=== PATIENT | female | born 1945 | race Caucasian/White ===

== ENCOUNTER → 2024-02-17 08:55 | Outpatient (REF) | payer MEDICARE, SELFPAY | LOC: DHCBC MAIN 08:55 | PROVIDERS: ATTENDING PHYSICIAN Internal Medicine Cardiovascular Disease | DX: I35.0 Nonrheumatic aortic (valve) stenosis (principal) | CPT/HCPCS: 93306 ==

== ENCOUNTER → 2024-07-17 12:57 | Outpatient (REF) | payer MEDICARE, SELFPAY | LOC: RCS 12:57 | PROVIDERS: ATTENDING PHYSICIAN Internal Medicine Cardiovascular Disease | DX: I35.0 Nonrheumatic aortic (valve) stenosis (principal) | CPT/HCPCS: 93017 ==

== ENCOUNTER → 2025-02-09 10:13 | Outpatient (REF) | payer MEDICARE, SELFPAY | LOC: HWRCS 10:13 | PROVIDERS: ATTENDING PHYSICIAN Internal Medicine Cardiovascular Disease | DX: I35.0 Nonrheumatic aortic (valve) stenosis (principal) | CPT/HCPCS: 93306 ==

== ENCOUNTER 2025-02-16 18:45 | Inpatient (IN) | payer MEDICARE, SELFPAY ==
[2025-02-16 14:13] VITALS: BP 173/103
[2025-02-16 14:51] LABS: % Basophils 0.8 % (0-2); % Eosinophils 2.8 % (0-6); % Immature Granulocytes 0.4 % (0-0.5); % Monocytes 7.4 % (1.7-9.3); % Neutrophils 59.6 % (42.2-75.2); Absolute Eosinophils 0.2 10^3/uL (0-0.7); Absolute Lymphocytes 1.5 10^3/uL (1.2-3.4); Absolute Monocytes 0.4 10^3/uL (0.1-0.6); Absolute Neutrophils 3.1 10^3/uL (1.4-6.5); Hematocrit 35.9 % (37.0-47.0); Hemoglobin 12.1 g/dL (12.0-16.0); Mean Corp Hgb Conc. 33.7 g/dL (33.0-37.0); Mean Corpuscular Hgb 29.7 pg (27.0-31.0); Mean Corpuscular Volume 88.2 fL (81.0-99.0); Nucleated Red Blood Cells % 0 %; Platelet Count 207 10^3/uL (130-400); Red Blood Cell Count 4.07 10^6/uL (4.20-5.40); Red Cell Dist. Width 12.7 % (11.5-14.5); White Blood Cell Count 5.3 10^3/uL (4.8-10.8)
[2025-02-16 15:14] LABS: Erythrocyte Sed Rate 23 mm/hour (0-20)
[2025-02-16 15:18] LABS: ALT (SGPT) 26 U/L (0-35); AST (SGOT) 32 U/L (14-36); Albumin 4.7 g/dl (3.5-5.0); Alkaline Phosphatase 75 U/L (38-126); Blood Urea Nitrogen 24 mg/dl (7-17); Carbon Dioxide 25 mmol/L (22-30); Chloride 107 mmol/L (98-107); Glucose 98 mg/dl (70-99); Potassium 4.8 mmol/L (3.5-5.1); Sodium 140 mmol/L (135-145); Total Bilirubin 0.7 mg/dl (0.2-1.3); Total Protein 7.3 g/dl (6.3-8.2); eGFR 45.76
[2025-02-16 15:22] LABS: C-Reactive Protein < 5.00 mg/L (0.0-10.00)
--- NOTE | 2025-02-16 17:09 | ED.GENMED ---
History of Present Illness
General
Chief Complaint: Eye Problems
Source: patient
Exam Limitations: none
Time Seen by Provider: 02/16/25 16:39
Nursing documentation reviewed up to this point in time: agreed with
History of Present Illness
History of Present Illness:
pt is a 79 y/o F with h/o Aortic stenosis (rose) probably going to have to have AVR
cataracts
brain aneurysm s/p clipping 2002
here from eye doctor office for concerned for possible blockage in her eye circulation
pt says about 2 mo ago she had hazy halo around vision, no headache; seen by dr. bashir and thought to be occular migraine
that sypmtom resolved
but ever since then she cifuentes shad a little ring medially of haziness in the medial corner left eye
she has been back and forth to the eye doctor and is scheduled to have cataract surgery thinking andrea tis the cause of the vision chnages
but today he noticed a 'blockage' and wants her r/o for stroke
pt has no symptoms currently
no headache, weakness, numbness, balance problems
she is not anticoagulated
no asa/plavix
no smoker
Past History
Past History
ED Past Medical History: Other (Lyme disease, Basal cell skin cancer)
ED Past Surgical History: and Other (Brain aneurysm with surg, Basal cell skin cancer with surg.)
Social History
Tobacco: Non-smoker
Alcohol: Daily
Drug: None
Personal:
Living: with family
Review of Systems
Review of Systems
Allergies reviewed?: Yes
All Other Systems: Not applicable
Phy Exam
Physical Exam
Physical Exam:
GENERAL: Alert , in no apparent distress
HEAD: NCAT
EYE: pupils equal and reactive, no nystagmus, no photophobia
NECK: Supple,full rom, nontender
ENT: o/p clr, mmm.
CARDIAC: Regular rate and rhythm . no edema
LUNGS: Clear breath sounds bilaterally, no acute respiratory distress, no wheezes/rales/rhonchi
ABDOMEN: Soft, without focal tenderness, no r/g, no cvat
NEUROLOGICAL: Alert and orientedx 4, cn intact, no facial asymmetry, 5/5 strength in UE/LE, sensation intact, romberg neg, ambulates without assistance, neg pronator drift
SKIN: Warm and dry, skin intact.
MUSCULOSKELETAL: No edema, well perfused.
PSYCH: Normal and appropriate interaction.
Course
Orders/Labs/Results
Orders:
Orders
02/16/25 14:27
CT Head & Neck Angio W/wo IV Urgent
Comment:
Reason For Exam: mild subacute CRAO OS
02/16/25 14:38
CBC/With Diff [Complete Blood Count/With Diff] Urgent
CRP [C-Reactive Protein] Urgent
Comprehensive Metabolic Panel Urgent
ESR [Erythrocyte Sed Rate] Urgent
02/16/25 17:53
Aspirin 325 mg PO NOW STA
Abnormal Lab Results
02/16/25
14:38
RBC 4.07 L 10^6/uL
(4.20-5.40)
Hct 35.9 L %
(37.0-47.0)
ESR 23 H mm/hour
(0-20)
BUN 24 H mg/dl
(7-17)
Creatinine 1.2 H mg/dL
(0.6-1.0)
02/16/25 14:38
02/16/25 14:38
Vital Signs
Initial and Last Documented VS:
Initial Vital Signs
Temp Pulse Resp BP Pulse Ox
36.9 C 78 16 173/103 99
02/16/25 14:13 02/16/25 14:13 02/16/25 14:13 02/16/25 14:13 02/16/25 14:13
Last Documented Vital Signs
Temp Pulse Resp BP Pulse Ox
36.9 C 78 16 173/103 99
02/16/25 14:13 02/16/25 14:13 02/16/25 14:13 02/16/25 14:13 02/16/25 14:13
MDM/Problems Addressed
Differential Diagnosis Includes:
retinal artery stenosis, cva, carotid stenosis
MDM/Problems Addressed:
79 y/o F
h/o brain aneurysm s/p clipping 2002
sent by krysten for concerns for retinal artery occlusion which is new from a few weeks ago in prep for cataract surgery
h/o severe , will need TAVR ([facility])
has L sided vision chagnes for a few weeks
cta shows 50-69% stenosis L internal carotid and b/l stenosis common carotid
d/w campos for vascular
recommends statin, aspirin, neuro, mri and consult vascular
*Critical Care Note
Total Time (30-74mins, 75-104mins- exclusive of procedures): Not Applicable
ED Attending Note
-
Portions of this chart may have been created with voice recognition software.� Occasional wrong word or��sound alike� substitutions may have occurred due to the inherent limitations of voice recognition software.
Discharge Plan
Departure
Patient Disposition: Admit
Date of Disposition: 02/16/25
Time of Disposition: 17:50
Admit to: Telemetry
Presentation/result/management discussed w/ accepting MD/DO: Hospitalist
Condition: Fair
Covid-19: Not Applicable
Discharge Problem:
Branch retinal artery occlusion, Carotid artery stenosis
Prescriptions:
No Action
metoprolol succinate 50 mg Tablet Extended Release 24 Hr
50 mg PO DAILY
lisinopril 20 mg Tablet
20 mg PO DAILY
hydrochlorothiazide 12.5 mg Tablet
12.5 mg PO DAILYPRN PRN (Reason: swelling)
Interventions
Interventions:
*Risk Screen - Suicide Last Done: 02/16/25 14:13
*General Assessment Last Done: 02/16/25 16:40
*Neglect/Abuse Screening Last Done: 02/16/25 14:13
*ED- Fall Risk Assessment Last Done: 02/16/25 16:40
*ED COVID-19 Vaccine History Last Done: 02/16/25 16:40
Discharge Date and Time
Print Language: WOLOF
--- NOTE | 2025-02-16 17:55 | HPS.HSE ---
Family Physician
-
Family Physician:
Chief Complaint
-
Left eye vision problem
History of Present Illness
79 y/o F with h/o Aortic stenosis,cataracts,brain aneurysm s/p clipping 2002 here from eye doctor office for concerned for possible blockage in her eye circulation.
pt says about 2 mo ago she had hazy halo around vision, no headache that symptoms resolved. Few days after she cifuentes shad a little ring medially of haziness in the medial corner left eye. she scheduled to have cataract surgery thinking andrea tis the
cause of the vision changes. today she was evaluated by Dr. Vail in preparation of cataract surgery and noted to have some blockage in her left eye. he sent her in for CTA. Patient denies any headache, dizzy or syncope. Patient denied numbness.
Patient denied any fever, chills, chest pain, short of breath. Patient denied any abdominal pain, nausea, vomiting or diarrhea. Patient denied dysuria hematuria.
CTA with impression ofFocal stenoses bilaterally of the common carotid and internal carotid arteries as described above.
Multilevel degenerative disc disease.
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
Patient received a dose of aspirin in ER. Admitted for further management
Medical History
Past Medical History
Past Medical History: Reports Other
Additional Past Medical History:
Hypertension
Chronic pain
Cerebral aneurysm
Hyperlipidemia
Lyme disease
Aortic stenosis
Plantar fasciitis
-
Past Surgical History: Reports Other
Additional Past Surgical History:
Tonsillectomy
Brain aneurysm procedure
Social History
Tobacco: Non-smoker
Alcohol: Occasional
Drug: None
Family History
Family History: Not pertinent
Allergies / Home Medications
Allergies reflects when Allergies were last updated in [facility].
Home Medications with original date entered in [facility]
Allergy/Medication List:
Allergies
Allergy/AdvReac Type Severity Reaction Status Date / Time
Sulfa (Sulfonamide Allergy Unknown Verified 02/16/25 14:13
Antibiotics)
[Sulfa(Sulfonamide
Antibiotics)]
Home Medications
hydrochlorothiazide 12.5 mg tablet 12.5 mg PO DAILYPRN PRN swelling 02/16/25
lisinopril 20 mg tablet 20 mg PO DAILY 02/16/25
metoprolol succinate 50 mg tablet,extended release 24 hr 50 mg PO DAILY 02/16/25
Review of Systems
-
Constitutional: Reports No Symptoms
EENT: Reports Other (Left vision changes)
Respiratory: Reports No Symptoms
Cardiac: Reports No Symptoms
Abdomen/GI: Reports No Symptoms
: Reports No Symptoms
Musculoskeletal: Reports No Symptoms
Skin: Reports No Symptoms
Neurological: Reports No Symptoms
Endocrine: Reports No Symptoms
Hematologic/Lymphatic: Reports No Symptoms
Psych: Reports No Symptoms
Physical Exam
Vital Signs
Vital Signs
Temp Pulse Resp BP Pulse Ox
98.4 F 78 16 173/103 99
02/16/25 14:13 02/16/25 14:13 02/16/25 14:13 02/16/25 14:13 02/16/25 14:13
Physical Exam
General: Well Developed, Well Nourished and No Apparent Distress
HEENT: NormoCephalic, Moist mucous membranes and Atraumatic
Respiratory: Clear
Cardiac: S1/S2 and Regular Rhythm; No Murmur or Rub
GI: Soft, Non Tender, Non Distended and Normal Bowel Sounds; No Organomegaly
Rectal: Deferred by Provider
Musculoskeletal: No Clubbing, No Cyanosis and No Edema
Skin: No Rash
Neuro: AO x 3 and Nonfocal/grossly intact
Psych: Calm
Laboratory Results
-
02/16/25 14:38
02/16/25 14:38
Laboratory Results
Total Bilirubin 0.7 mg/dl (0.2-1.3) 02/16/25 14:38
AST 32 U/L (14-36) 02/16/25 14:38
ALT 26 U/L (0-35) 02/16/25 14:38
Alkaline Phosphatase 75 U/L (38-126) 02/16/25 14:38
Data Reviewed
-
CT Scan: Report Reviewed by me
Lab Data: Labs Reviewed by me
Impression/Plan
-
#Retinal artery occlusion
# Left internal carotid arterial and bilateral stenosis of common carotid
-Head neck CTA with impression of Focal stenoses bilaterally of the common carotid and internal carotid arteries as described above.Findings suggesting a small old right temporal lobe infarct.
-Statin, aspirin
-MRI of the brain
-Neurology consult
-Vascular consulted
# History is aortic aortic stenosis
-Plan for TAVR as outpatient
#CKD stage IIIb
-Creatinine 1.2
-Continue to monitor
#Essential hypertension
-Lisinopril metoprolol continued
DVT prophylaxis
-scd
# CODE STATUS
-Full code
[2025-02-16] MEDS: ASPIRIN 325 MG PO (18:27)
[2025-02-16 18:28] VITALS: BMI 21.0
[2025-02-16 18:29] VITALS: BP 211/94
--- NOTE | 2025-02-16 18:40 | W.PN.UPDATE ---
Update Note
Progress Note Update
This note serves as an addendum to the H&P by steam and power supervisor ROB Arlen DAVILA
HPI
79F HX brain aneurysm s/p clipping (2002) HX severe ,, pending TAVR (CBC Card Dr. Salas) sen at ER:
- sent in by Dr Vail ( Eye) for concerns for retinal artery occlusion which is new from a few weeks ago in prep for cataract - she has L sided vision chagnes for a few weeks
- CTS shows 50-69% stenosis L internal carotid and b/l stenosis common carotid and ER d/w Dr Ansari and recommends statin, aspirin, MRI , Neuro & Vascular consult
PHX; see above
Reviewed VS:
Vital Signs
Temp Pulse Resp BP Pulse Ox
98.4 F 78 16 173/103 99
02/16/25 14:13 02/16/25 14:13 02/16/25 14:13 02/16/25 14:13 02/16/25 14:13
PE
Gen: No Apparent Distress
HEENT :moist OM
Neck: supple, no bruit
Lungs: clear
Cor: RRR S1 S2 . No murmur
Abdomen: Soft, Non Tender, Non Distended
[employer]: AO x 3 and Nonfocal/grossly intact
MS: No Edema
Psych: calm
Laboratory Tests
03/19/22 02/16/25
11:02 14:38
WBC 5.3
Hgb 12.1
Plt Count 207
ESR 23 H
BUN 24 H
Creatinine 1.1 H 1.2 H
eGFR 45.76
C-Reactive Protein < 5.00
CT Head & Neck Angio W/wo IV
- No acute vascular pathology.
- Focal stenoses bilaterally of the common carotid and internal carotid arteries as described above.
- Multilevel degenerative disc disease.
- Findings suggesting a small old right temporal lobe infarct.
ASSESSMENT & PLAN
L Retinal artery occlusion
Left internal carotid arterial and bilateral stenosis of common carotid artery
small old right temporal lobe infarct.
Of note: Declined statin in the past
- Initiated ASA
- declined Stain suggested by Vas-
- Brain MRI in AM
- Neuro consult
- Vascular consulted
HX aortic
-Plan for TAVR as outpatient
-Follows ( [facility])
CKD 3b
-Creatinine 1.2
- Observe
Essential HTN
- c/w Lisinopril and Metoprolol XL
DVT Px: SCD
Ful code
IP TLM
[2025-02-16 19:00] VITALS: BP 201/94
[2025-02-16 19:48] VITALS: BP 193/99; BMI 21.8
--- NOTE | 2025-02-16 19:52 | PTCARENOTE ---
Patient arrived from the ED via stretcher. Patient AAOx3, VSS. BP elevated. No dizziness of light headedness. No c/o pain. Pt ambulated with assistance, steady on feet. Patient oriented to the room. Call mclean is within reach.
[2025-02-16] MEDS: LIPITOR 40 MG PO (20:48)
[2025-02-16 22:55] VITALS: BP 171/82
[2025-02-17] VITALS (7 sets, daily range): BP systolic 141–173; BP diastolic 64–90
[2025-02-17 07:09] LABS: Blood Urea Nitrogen 19 mg/dl (7-17); Calcium 9.7 mg/dl (8.4-10.2); Carbon Dioxide 24 mmol/L (22-30); Chloride 108 mmol/L (98-107); Estimated Creatinine Clearance 34 ml/min; Glucose 90 mg/dl (70-99); Potassium 4.3 mmol/L (3.5-5.1); Sodium 138 mmol/L (135-145); eGFR 45.76
[2025-02-17] MEDS: LOW STRENGTH ASPIRIN 81 MG PO (09:02)
[2025-02-17] MEDS: ZESTRIL 20 MG PO (09:02)
[2025-02-17] MEDS: PLAVIX 75 MG PO (09:02)
[2025-02-17] MEDS: TOPROL XL 50 MG PO (09:02)
--- NOTE | 2025-02-17 09:29 | W.PN.HOSP.TC ---
Today's Communication/Plan
-
see plan
Assessment / Plan
Assessment / Plan
Gen: NAD, AAOx3.
Eyes: EOMI, PERRLA, no scleral icterus.
Neck: supple.
CV: RRR, +S1/S2, 2/6 systolic murmur
Resp: CTAB, no rales, wheezes, or rhonchi.
Abd: +BS, soft, RUQ TTP, ND
Skin: No rashes.
Neuro: CN 2-12 intact, non-focal.
Psych: Normal mood and affect.
CTA Head/Neck:
- No acute vascular pathology.
- Focal stenoses bilaterally of the common carotid and internal carotid arteries as described above.
- Multilevel degenerative disc disease.
- Findings suggesting a small old right temporal lobe infarct.
L Retinal artery occlusion
Left internal carotid arterial and bilateral stenosis of common carotid artery
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
-Note, pt declined statin in the past, now agreeable
-cont ASA/statin/Plavix
-check MRI brain
-c/s neuro and vascular
-Check carotid ultrasound
Other problems:
, plan for TAVR as outpatient
CKD3b
Essential HTN: cont ACEi/BB
FULL/Lovenox
Anticipated Discharge: Within 24 hours
Subjective/Interval History
-
Date of Service: February 17, 2025
No new complaints. Still with a 'chevron shaped' area of visual loss in her left central visual field.
Objective Data
-
Labs:
Laboratory Results
02/17/25
05:32
Sodium 138
Potassium 4.3
Chloride 108 H
Carbon Dioxide 24
BUN 19 H
Creatinine 1.2 H
Glucose 90
Calcium 9.7
Vital Signs:
Vital Signs
Temp Pulse Resp BP Pulse Ox
97.9 F 72 16 157/71 95
02/17/25 07:14 02/17/25 07:14 02/17/25 07:14 02/17/25 07:14 02/17/25 07:14
I&O
02/16/25 02/17/25 02/18/25
06:59 06:59 06:59
Intake Total 480 / 480
Balance 480 / 480
--- NOTE | 2025-02-17 10:10 | CON.NEURO ---
Consultation
Order
Date of Consultation: 02/17/25
Requesting Provider: Karina Parrish PA-C
Reason for Consult: Visual change
Neurology Consultation Note.
HPI: This is an 79-year-old woman who referred to [facility] on 02/16/2025 following a concerning finding during a pre-operative ophthalmological examination for planned cataract surgery. During the exam, Dr. Miller noted a shadow on
the retina of her left eye, which prompted concern for a possible BRAO?.
The patient reports experiencing transient painless binocular horizontal diplopia lasting for a brief, which she noticed last week while looking at a street light. lasted for a brief period.
Of note, the patient has a history of a repaired brain aneurysm in 2002 at [facility].
ER VS: 173/103, 72, afebrile
PDMP: none
CT head wo contrast-chronic right MCA territory hypodensity
CTA head/neck-BL ICA stenosis (50-69%)
PMH: BRAO, severe aortic stenosis, HTN, DLP, CKD, allergic rhinitis, eustachian tube dysfunction, OA
PSH: Craniotomy with brain aneurysm clipping(2002), tonsillectomy, C-sections,
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
FH: Mother at 97, father had AAA
All: Sulfas
ROS: Constitutional: Negative. Negative for chills, fever and unexpected weight change.
HENT: Negative for ear pain, hearing loss, tinnitus and trouble swallowing.
Eyes: Negative. Negative for photophobia, pain and visual disturbance.
Respiratory: Negative for cough, choking and shortness of breath.
Cardiovascular: Negative for chest pain, palpitations and leg swelling.
Gastrointestinal: Negative for abdominal pain and vomiting.
Endocrine: Negative. Negative for cold intolerance.
Genitourinary: Negative for dysuria, flank pain and urgency.
Musculoskeletal: Negative for back pain, gait problem, neck pain and neck stiffness.
Skin: Negative for rash.
Allergic/Immunologic: Negative. Negative for immunocompromised state.
Neurological: Positive for transient diplopia
Psychiatric/Behavioral: Negative for behavioral problems, confusion and hallucinations.
General: Well developed. In no acute distress.
Cardio: Regular rate and rhythm without murmur. Extremities are without cyanosis or edema.
Neuro:
Mental Status: Alert, oriented to person, place, and date. Normal attention and recall. Good fund of knowledge. Follows complex requests across the midline. Comprehension, naming, and repetition intact. Immediate and delayed recall 3/3.
Cranial Nerves: Pupils are equally round and reactive to light. EOMs full. Visual garcia full to confrontation. No ptosis. No nystagmus. V1-V3 intact to light touch and pinprick bilaterally, symmetric. Face symmetric. Normal hearing AU. The
palate elevated well. SCMs and traps 5/5. Tongue midline. No dysarthria.
Motor: Normal bulk and tone. No pronator or arm drift. Strength 5/5 throughout. No clonus.
Reflexes: 0+ throughout the upper extremities and knees. 0/2 in AJs. Plantar responses flexor bilaterally.
Sensory: Normal vibration at the toes
Coordination: No dysmetria or tremor.
Gait: deferred
Assessment and Plan:
I. TIA
II. ? L BRAO
III. Bilateral ICA stenosis
IV. History of SAH, s/p ACOM? clipping
-Continue Telemetry monitoring
-TTE
-DAPT for 3 weeks
-Cardiology consult�Holter monitoring
-Carotid artery ultrasound
-DVT prophylaxis.
I personally reviewed all radiology and labs along with past medical records pertinent to current medical problems. Total time spent in patient care is 60 minutes.
Thank you for allowing us to participate in the care of this patient. We will continue to follow. Please do not hesitate to contact us with any questions or concerns.
Subjective/Objective
Subjective Data
Date of Service: February 17, 2025
Objective Data
Vital Signs
Temp Pulse Resp BP Pulse Ox
36.6 C 72 16 157/71 95
02/17/25 07:14 02/17/25 07:14 02/17/25 07:14 02/17/25 07:14 02/17/25 07:14
Lab Results
02/16/25 14:38
02/17/25 05:32
Sodium 138 mmol/L (135-145) 02/17/25 05:32
Potassium 4.3 mmol/L (3.5-5.1) 02/17/25 05:32
BUN 19 mg/dl (7-17) H 02/17/25 05:32
Glucose 90 mg/dl (70-99) 02/17/25 05:32
Calcium 9.7 mg/dl (8.4-10.2) 02/17/25 05:32
Patient Allergies
Sulfa (Sulfonamide Antibiotics) [Sulfa(Sulfonamide Antibiotics)] Allergy (Verified 02/16/25 14:13)
Unknown
Medications
-
Active Medications
Generic Name Dose Route Start Last Admin
Trade Name Freq PRN Reason Stop Dose Admin
Acetaminophen 650 mg 02/16/25 19:36
Acetaminophen 325 Mg Tablet PO 03/16/25 19:35
Q4HPRN PRN
mild pain/MCCLENDON/temp> 100.4F
Aspirin 81 mg 02/17/25 08:00 02/17/25 09:02
Aspirin 81 Mg Chewable Tablet PO 03/17/25 07:59 81 mg
DAILY HERBERT Administration
Atorvastatin Calcium 40 mg 02/16/25 19:36 02/16/25 20:48
Atorvastatin (Lipitor) 40 Mg Tablet PO 03/16/25 19:35 40 mg
QPM HERBERT Administration
Bisacodyl 10 mg 02/16/25 19:36
Bisacodyl 10 Mg Rectal Suppository RECTAL 03/16/25 19:35
[id number] PRN
constipation
Clopidogrel Bisulfate 75 mg 02/17/25 08:00 02/17/25 09:02
Clopidogrel 75 Mg Tablet PO 03/09/25 08:01 75 mg
DAILY HERBERT Administration
Lisinopril 20 mg 02/17/25 08:00 02/17/25 09:02
Lisinopril 20 Mg Tablet PO 03/17/25 07:59 20 mg
DAILY HERBERT Administration
Metoprolol Succinate 50 mg 02/17/25 08:00 02/17/25 09:02
Metoprolol 50 Mg Extended Release Tablet PO 03/17/25 07:59 50 mg
DAILY HERBERT Administration
Polyethylene Glycol 17 grams 02/16/25 19:36
Polyethylene Glycol Powder 17 Grams Packet PO 03/16/25 19:35
DAILYPRN PRN
constipation
Senna/Docusate Sodium 1 tablet 02/16/25 19:36
Docusate W/Senna (Lissa-Colace) Tablet PO 03/16/25 19:35
BIDPRN PRN
constipation
Sodium Chloride 0 flush 02/16/25 20:00
Sodium Chloride 0.9% (Flush) Syringe IV 03/16/25 19:59
PER PROTOCOL HERBERT
Home Medications
�Medication �Instructions �Recorded
hydrochlorothiazide 12.5 mg tablet 12.5 mg PO DAILYPRN PRN swelling 02/16/25
lisinopril 20 mg tablet 20 mg PO DAILY 02/16/25
metoprolol succinate 50 mg 50 mg PO DAILY 02/16/25
tablet,extended release 24 hr
--- NOTE | 2025-02-17 11:17 | CON.VAS ---
Consultation
Consultation Request
Reason for Consultation: ? symptomatic carotid artery
Medical History
-
Chief Complaint: ? retinal artery pathology
History of Present Illness:
79 yo F with history of severe awaiting TAVR. She follows with an opthalmologist for cataracts. Around 2 months ago she experienced blurry vision within her left medial eye field. Upon evaluation her opthalmologist was concerned she had a new
'blockage' in her retinal artery. Her vision has subsequently been stable. She has no blindness in any areas of her visual garcia. She has had no weakness, numbness, or speech changes. She says she otherwise stays very active. Vascular surgery was
consulted for possible symptomatic carotid artery stenosis.
Past Medical History
Past Medical History: Valvular Disease and Other (cataracts)
Social History
Tobacco: Non-Smoker
Alcohol: None
Family History
Family History: Reviewed & Not Pertinent
Allergies / Home Medications
Allergy/AdvReac Type Severity Reaction Status Date / Time
Sulfa (Sulfonamide Allergy Unknown Verified 02/16/25 14:13
Antibiotics)
[Sulfa(Sulfonamide
Antibiotics)]
�Medication �Instructions �Recorded �Confirmed �Type
hydrochlorothiazide 12.5 mg tablet 12.5 mg PO DAILYPRN PRN swelling 02/16/25 02/16/25 History
lisinopril 20 mg tablet 20 mg PO DAILY 02/16/25 02/16/25 History
metoprolol succinate 50 mg 50 mg PO DAILY 02/16/25 02/16/25 History
tablet,extended release 24 hr
Physical Exam
Vital Signs
Temp Pulse Resp BP Pulse Ox
97.9 F 72 16 157/71 95
02/17/25 07:14 02/17/25 07:14 02/17/25 07:14 02/17/25 07:14 02/17/25 07:14
Lab Results
02/16/25 14:38
02/17/25 05:32
Physical Exam
General: Well Developed
HEENT: Normocephalic and Anicteric
Respiratory: Clear
Cardiac: S1/S2 and Regular Rhythm
GI: Soft
Skin: Warm
Neuro: AO x 3, No Motor Deficits and Nonfocal/Grossly Intact
Pulses: Bilateral Femoral: +2
Assessment / Plan
-
I personally reviewed Rosie's CT scan. Her left carotid does have circumferential calcification and some soft appearing plaque at the proximal ICA. However, this appears to be 50% stenotic at most. Additionally, her symptoms of medial field
blurriness are not consistent with classic TIA or stroke like symptoms. Therefore I do not think this is a symptomatic carotid pathology. I have asked for her to get a carotid duplex to get a further estimation of the degree of stenosis, but at this
point I do not think she would benefit from intervention based on her symptoms, non significant stenosis, and current severe . This was discussed with Dr Santiago who agrees.
Data Reviewed
-
CT Scan: Image Personally Visualized and interpreted, Discussed with Physician and Discussed with Patient
--- NOTE | 2025-02-17 12:33 | CM ---
Patient seen bedside w/ daughter, Gabriela. Initial assessment completed. Admitted for L eye vision problem.
Patient reports she was living alone but daughter, Gabriela, is now staying w/ her. Patient resides in a 2STH- 2 steps to enter the home. Patient is independent w/ ambulating, no device. Independent w/ ADLs. No DME identified. Denies SNF hx, had VN in
2007. No current OP or home services at this time.
Address, points of contact and insurance verified
PCP: Patient does not have a PCP at this time. Interested in residency clinic information
Pharmacy: [facility]
Plan: Home; no needs
[2025-02-17] MEDS: LIPITOR 40 MG PO (17:15)
[2025-02-18 03:34] VITALS: BP 117/63
[2025-02-18 06:59] LABS: Blood Urea Nitrogen 17 mg/dl (7-17); Calcium 9.4 mg/dl (8.4-10.2); Carbon Dioxide 26 mmol/L (22-30); Chloride 108 mmol/L (98-107); Estimated Creatinine Clearance 37 ml/min; Glucose 89 mg/dl (70-99); Potassium 4.2 mmol/L (3.5-5.1); Sodium 140 mmol/L (135-145)
--- NOTE | 2025-02-18 07:40 | W.PN.UPDATE ---
Update Note
Progress Note Update
Reviewed ultrasound images. Carotid arteries with calcific plaque bilaterally, with velocities corresponding to 50-69% stenosis, closer to 50%. Regardless, neurology and I do not think she is symptomatic so intervention is not indicated at this time.
[2025-02-18 07:55] VITALS: BP 173/79
[2025-02-18] MEDS: PLAVIX 75 MG PO (08:06)
[2025-02-18] MEDS: TOPROL XL 50 MG PO (08:06)
[2025-02-18] MEDS: ZESTRIL 20 MG PO (08:06)
[2025-02-18] MEDS: LOW STRENGTH ASPIRIN 81 MG PO (08:06)
--- NOTE | 2025-02-18 09:55 | W.PN.HOSP.TC ---
Today's Communication/Plan
-
d/c
Assessment / Plan
Assessment / Plan
Gen: NAD, AAOx3.
Eyes: EOMI, PERRLA, no scleral icterus.
Neck: supple.
CV: Remains RRR, +S1/S2, 2/6 systolic murmur
Resp: Remains CTAB, no rales, wheezes, or rhonchi.
Skin: No rashes.
Neuro: CN 2-12 intact, non-focal.
Psych: Normal mood and affect.
CUS: Calcified plaque within BOTH carotid bulbs and proximal internal carotid arteries. Peak systolic velocity within the right ICA measures 220 cm/s. Peak systolic velocity within the left ICA measures 207 cm/s. Findings consistent with bilateral
50-69% stenoses. Antegrade flow within both vertebral arteries.
CTA Head/Neck:
- No acute vascular pathology.
- Focal stenoses bilaterally of the common carotid and internal carotid arteries as described above.
- Multilevel degenerative disc disease.
- Findings suggesting a small old right temporal lobe infarct.
L Retinal artery occlusion
Left internal carotid arterial and bilateral stenosis of common carotid artery
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
-Note, pt declined statin in the past, now agreeable
-cont ASA/statin/Plavix (DAPT for [address] Santiago's recs)
-cannot have MRI brain due to incompatible aneurysmal clip
-neuro and vascular saw in c/s, both have cleared the pt for d/c (confirmed via conversation with Drs. Anderson and Pamela over [employer] at 0959 on 02/18/25)
Other problems:
, plan for TAVR as outpatient
CKD3b
Essential HTN: cont ACEi/BB
FULL/Lovenox
Total time spent on d/c = 31 min. This included today's physical exam, progress note, review of laboratory and diagnostic data, preparation of discharge documents and prescriptions, and discussions about the pt's hospital course and discharge plan
with the patient and other manager of medical involved in the patient's care.
Anticipated Discharge: Today
Subjective/Interval History
-
Date of Service: February 18, 2025
No new complaints. Patient states her vision is improving.
Objective Data
-
Labs:
Laboratory Results
02/18/25
05:30
Sodium 140
Potassium 4.2
Chloride 108 H
Carbon Dioxide 26
BUN 17
Creatinine 1.1 H
Glucose 89
Calcium 9.4
Vital Signs:
Vital Signs
Temp Pulse Resp BP Pulse Ox
97.9 F 69 16 173/79 97
02/18/25 07:55 02/18/25 08:06 02/18/25 07:55 02/18/25 08:06 02/18/25 07:55
I&O
02/17/25 02/18/25 02/19/25
06:59 06:59 06:59
Intake Total 480 / 480 720 / 720
Balance 480 / 480 720 / 720
--- NOTE | 2025-02-18 10:33 | W.PN.NEURO.1 ---
Today's Communication / Plan
-
.
Subjective/Objective
Subjective Data
Date of Service: February 18, 2025
Neurology follow-up note
Ms. Fletcher recalls an episode of visual disturbance in November, described as seeing 'colors'. She was able to drive herself home and was diagnosed by her chili powder mixer with ocular migraine. During a follow-up examination two months later
she was found to have a triangular shadow behind the retina, which prompted concern for a possible clot.
The patient reports that the visual symptoms from November persisted for weeks, manifesting as a slight shading in the inner corner of her left eye. She notes that this shading is not present today when looking through her left eye, suggesting recent
improvement.
Carotid Doppler ultrasound (02/17/2025)�BL 50-69% ICA stenosis
TTE(02/09/2025) Interatrial septum is intact with no evidence of shunting by color flow Doppler.
PMH: severe aortic stenosis, HTN, DLP, CKD, allergic rhinitis, eustachian tube dysfunction, OA
PSH: Craniotomy with brain aneurysm clipping(2002), tonsillectomy, C-sections,
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
FH: Mother at 97, father had AAA
All: Sulfas
ROS: Constitutional: Negative. Negative for chills, fever and unexpected weight change.
HENT: Negative for ear pain, hearing loss, tinnitus and trouble swallowing.
Eyes: Negative. Negative for photophobia, pain and visual disturbance.
Respiratory: Negative for cough, choking and shortness of breath.
Cardiovascular: Negative for chest pain, palpitations and leg swelling.
Gastrointestinal: Negative for abdominal pain and vomiting.
Endocrine: Negative. Negative for cold intolerance.
Genitourinary: Negative for dysuria, flank pain and urgency.
Musculoskeletal: Negative for back pain, gait problem, neck pain and neck stiffness.
Skin: Negative for rash.
Allergic/Immunologic: Negative. Negative for immunocompromised state.
Neurological: Positive for transient diplopia
Psychiatric/Behavioral: Negative for behavioral problems, confusion and hallucinations.
General: Well developed. In no acute distress.
Cardio: Regular rate and rhythm without murmur. Extremities are without cyanosis or edema.
Neuro:
Mental Status: Alert, oriented to person, place, and date. Normal attention and recall. Good fund of knowledge. Follows complex requests across the midline. Comprehension, naming, and repetition intact. Immediate and delayed recall 3/3.
Cranial Nerves: Pupils are equally round and reactive to light. EOMs full. Visual garcia full to confrontation. No ptosis. No nystagmus. V1-V3 intact to light touch and pinprick bilaterally, symmetric. Face symmetric. Normal hearing AU. The
palate elevated well. SCMs and traps 5/5. Tongue midline. No dysarthria.
Motor: Normal bulk and tone. No pronator or arm drift. Strength 5/5 throughout. No clonus.
Reflexes: 0+ throughout the upper extremities and knees. 0/2 in AJs. Plantar responses flexor bilaterally.
Sensory: Normal vibration at the toes
Coordination: No dysmetria or tremor.
Gait: deferred
Assessment and Plan:
I. TIA
II. ? L BRAO
III. Bilateral ICA stenosis
IV. History of SAH, s/p ACOM? clipping
-Continue Telemetry monitoring
-DAPT for 3 weeks
-F/u MG panel
-Outpatient Holter monitoring
-Outpatient neurology follow-up
I personally reviewed all radiology and labs along with past medical records pertinent to current medical problems. Total time spent in patient care is 35 minutes.
Thank you for allowing us to participate in the care of this patient. Please do not hesitate to contact us with any questions or concerns.
Objective Data
Vital Signs
Temp Pulse Resp BP Pulse Ox
36.6 C 69 16 173/79 97
03/30/25 07:55 02/18/25 08:06 02/18/25 07:55 02/18/25 08:06 02/18/25 07:55
Lab Results
02/16/25 14:38
02/18/25 05:30
Sodium 140 mmol/L (135-145) 02/18/25 05:30
Potassium 4.2 mmol/L (3.5-5.1) 02/18/25 05:30
BUN 17 mg/dl (7-17) 02/18/25 05:30
Glucose 89 mg/dl (70-99) 02/18/25 05:30
Calcium 9.4 mg/dl (8.4-10.2) 02/18/25 05:30
Patient Allergies
Sulfa (Sulfonamide Antibiotics) [Sulfa(Sulfonamide Antibiotics)] Allergy (Verified 02/16/25 14:13)
Unknown
Vital Signs and Labs
-
Vital Signs and Labs:
Vital Signs
Temp Pulse Resp BP Pulse Ox
36.6 C 69 16 173/79 97
02/18/25 07:55 02/18/25 08:06 02/18/25 07:55 02/18/25 08:06 02/18/25 07:55
Lab Results
02/16/25 14:38
02/18/25 05:30
Sodium 140 mmol/L (135-145) 02/18/25 05:30
Potassium 4.2 mmol/L (3.5-5.1) 02/18/25 05:30
BUN 17 mg/dl (7-17) 02/18/25 05:30
Glucose 89 mg/dl (70-99) 02/18/25 05:30
Calcium 9.4 mg/dl (8.4-10.2) 02/18/25 05:30
Medications
-
Medications:
Generic Name Dose Route Start Last Admin
Trade Name Freq PRN Reason Stop Dose Admin
Acetaminophen 650 mg 03/28/25 19:36
Acetaminophen 325 Mg Tablet PO 03/16/25 19:35
Q4HPRN PRN
mild pain/MCCLENDON/temp> 100.4F
Aspirin 81 mg 02/17/25 08:00 02/18/25 08:06
Aspirin 81 Mg Chewable Tablet PO 03/17/25 07:59 81 mg
DAILY HERBERT Administration
Atorvastatin Calcium 40 mg 02/16/25 19:36 02/17/25 17:15
Atorvastatin (Lipitor) 40 Mg Tablet PO 03/16/25 19:35 40 mg
QPM HERBERT Administration
Bisacodyl 10 mg 02/16/25 19:36
Bisacodyl 10 Mg Rectal Suppository RECTAL 03/16/25 19:35
[id number] PRN
constipation
Clopidogrel Bisulfate 75 mg 02/17/25 08:00 02/18/25 08:06
Clopidogrel 75 Mg Tablet PO 03/09/25 08:01 75 mg
DAILY HERBERT Administration
Enoxaparin Sodium 40 mg 02/17/25 18:00 02/17/25 17:39
Enoxaparin Sodium 40 Mg/0.4 Ml Syringe SC 03/17/25 17:59 Not Given
QPM HERBERT
Lisinopril 20 mg 02/17/25 08:00 02/18/25 08:06
Lisinopril 20 Mg Tablet PO 03/17/25 07:59 20 mg
DAILY HERBERT Administration
Metoprolol Succinate 50 mg 02/17/25 08:00 02/18/25 08:06
Metoprolol 50 Mg Extended Release Tablet PO 03/17/25 07:59 50 mg
DAILY HERBERT Administration
Polyethylene Glycol 17 grams 02/16/25 19:36
Polyethylene Glycol Powder 17 Grams Packet PO 03/16/25 19:35
DAILYPRN PRN
constipation
Senna/Docusate Sodium 1 tablet 02/16/25 19:36
Docusate W/Senna (Lissa-Colace) Tablet PO 03/16/25 19:35
BIDPRN PRN
constipation
Sodium Chloride 0 flush 02/16/25 20:00
Sodium Chloride 0.9% (Flush) Syringe IV 03/16/25 19:59
PER PROTOCOL HERBERT
Home Medications
-
Home Medications
hydrochlorothiazide 12.5 mg tablet 12.5 mg PO DAILYPRN PRN swelling 02/16/25
lisinopril 20 mg tablet 20 mg PO DAILY 02/16/25
metoprolol succinate 50 mg tablet,extended release 24 hr 50 mg PO DAILY 02/16/25
aspirin 81 mg chewable tablet 81 mg PO DAILY #0 tabs 02/18/25
atorvastatin 40 mg tablet 40 mg PO QPM #30 tabs 02/18/25
clopidogrel 75 mg tablet 75 mg PO DAILY #19 tabs 02/18/25
--- NOTE | 2025-02-18 10:47 | CM ---
Patient is stable for d/c today. residency clinic information provided.
IMM verbally reviewed w/ patient w/ daughter at bedside. Patient given copy, copy placed on chart
No CM needs identified at this time
Plan: Home; no needs
[2025-02-18 10:53] VITALS: BP 153/80
--- NOTE | 2025-02-18 13:58 | W.DCSUMMARY ---
Discharge Summary
Discharge Data
Date of Admission: 02/16/25
Date of Discharge: 02/18/25
-
Pending Results: No
Hospital Course
Primary diagnoses:
Left retinal artery occlusion
Secondary diagnoses:
Brain aneurysm s/p clipping 2002 (clip is not MRI compatible)
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
Aortic Stenosis
Chronic Kidney Disease 3b
Essential Hypertension
Consultants:
Vascular surgery
Neurology
Imaging:
CUS: Calcified plaque within BOTH carotid bulbs and proximal internal carotid arteries. Peak systolic velocity within the right ICA measures 220 cm/s. Peak systolic velocity within the left ICA measures 207 cm/s. Findings consistent with bilateral
50-69% stenoses. Antegrade flow within both vertebral arteries.
CTA Head/Neck:
- No acute vascular pathology.
- Focal stenoses bilaterally of the common carotid and internal carotid arteries as described above.
- Multilevel degenerative disc disease.
- Findings suggesting a small old right temporal lobe infarct.
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 Imaging above. The patient was placed on aspirin and
Plavix. She had refused statin in the past but was agreeable to initiate statin during this hospitalization. She was seen in consultation by vascular surgery and neurology. Both services cleared the patient for discharge. Recommendation was for
dual antiplatelet therapy for 3 weeks. The patient was discharged in medically stable condition.
Discharge Plan
-
Patient Disposition: Home (Routine Discharge)
Discharge Diagnosis/Procedures: Left retinal artery occlusion
Condition: Good
Diet: Low Cholesterol and Low Sodium
Activity: As tolerated
Driving Restrictions: Not until seen by your Dr
Bathing Restrictions: None
Activity Restrictions/Additional Instructions:
You need to follow-up with ophthalmology soon as able. Needed to follow-up with vascular surgery in 1 to 2 weeks.
Referrals:
NONE,* [Family Provider] - in less than 1 week
Moe Ansari MD [Active] - in one to two weeks
Prescriptions:
New
atorvastatin 40 mg Tablet
40 mg PO QPM Qty: 30 0RF
clopidogrel 75 mg Tablet
75 mg PO DAILY Qty: 19 0RF
aspirin 81 mg Tablet,Chewable
81 mg PO DAILY Qty: 0 0RF
Continued
metoprolol succinate 50 mg Tablet Extended Release 24 Hr
50 mg PO DAILY
lisinopril 20 mg Tablet
20 mg PO DAILY
hydrochlorothiazide 12.5 mg Tablet
12.5 mg PO DAILYPRN PRN (Reason: swelling)
Discharge Orders:
Discharge Patient (As Directed); Ordered 02/18/25
Ordered By: Moncho Raymond
Discharge Date and Time
Discharge Date/Time: 02/18/25 11:23
Print Language: ESTONIAN
== END 2025-02-18 11:23 | disposition home or self-care (01) | DRG 125 ==
LOC: 4 EAST ACU 18:45
PROVIDERS: Registered Nurse; Student in an Organized Health Care Education/Training Program; ADMITTING PHYSICIAN Internal Medicine; ATTENDING PHYSICIAN Internal Medicine; CONSULT PHYSICIAN Psychiatry & Neurology Neurology; EMERGENCY PHYSICIAN Emergency Medicine; OTHER PHYSICIAN Surgery
DX: H34.12 Central retinal artery occlusion, left eye (principal); Z86.73 Personal history of transient ischemic attack (TIA), and cerebral infarction without residual deficits; I35.0 Nonrheumatic aortic (valve) stenosis; N18.32 Chronic kidney disease, stage 3b; I12.9 Hypertensive chronic kidney disease with stage 1 through stage 4 chronic kidney disease, or unspecified chronic kidney disease; I65.23 Occlusion and stenosis of bilateral carotid arteries; G89.29 Other chronic pain; E78.5 Hyperlipidemia, unspecified; M72.2 Plantar fascial fibromatosis; Z88.2 Allergy status to sulfonamides; Z85.828 Personal history of other malignant neoplasm of skin; Z79.899 Other long term (current) drug therapy
CPT/HCPCS: 70496; 70498; 80048; 80053; 85025; 85652; 86041; 86140; 93880; 99284; Q9967

== ENCOUNTER → 2025-02-21 11:08 | Outpatient (REF) | payer MEDICARE, SELFPAY ==
[2025-02-21 13:26] LABS: Blood Urea Nitrogen 24 mg/dl (7-17); Calcium 9.9 mg/dl (8.4-10.2); Carbon Dioxide 23 mmol/L (22-30); Chloride 105 mmol/L (98-107); Glucose 106 mg/dl (70-99); HDL Cholesterol 82 mg/dl; LDL Cholesterol, Calculated 200 mg/dl; Potassium 4.8 mmol/L (3.5-5.1); Sodium 138 mmol/L (135-145); Total Cholesterol 319 mg/dl (50-199); Triglyceride 186 mg/dl (10-149); Very Low Density Lipoprotein 37 mg/dl (0-30); eGFR 38.03
[2025-02-21 13:56] LABS: TSH Reflex To Free T4 3.31 uIU/ml (0.47-4.68)
[2025-02-21 14:27] LABS: Erythrocyte Sed Rate 18 mm/hour (0-20)
== END ==
LOC: HWLAB 11:08
PROVIDERS: ATTENDING PHYSICIAN Student in an Organized Health Care Education/Training Program
DX: I10 Essential (primary) hypertension (principal); I65.23 Occlusion and stenosis of bilateral carotid arteries; Z13.29 Encounter for screening for other suspected endocrine disorder; R89.9 Unspecified abnormal finding in specimens from other organs, systems and tissues
CPT/HCPCS: 36415; 80048; 80061; 84443; 85652

== ENCOUNTER 2025-03-21 06:34 | Day surgery (SDC) | payer MEDICARE, SELFPAY ==
[2025-03-14 13:43] VITALS: BMI 22.3
[2025-03-14 14:16] LABS: % Basophils 0.3 % (0-2); % Eosinophils 1.5 % (0-6); % Immature Granulocytes 0.3 % (0-0.5); % Lymphocytes 23.7 % (20.5-51.1); % Monocytes 6.2 % (1.7-9.3); Absolute Eosinophils 0.1 10^3/uL (0-0.7); Absolute Lymphocytes 1.5 10^3/uL (1.2-3.4); Absolute Monocytes 0.4 10^3/uL (0.1-0.6); Absolute Neutrophils 4.2 10^3/uL (1.4-6.5); Hematocrit 33.4 % (37.0-47.0); Hemoglobin 11.3 g/dL (12.0-16.0); Mean Corp Hgb Conc. 33.8 g/dL (33.0-37.0); Mean Corpuscular Hgb 30.2 pg (27.0-31.0); Mean Corpuscular Volume 89.3 fL (81.0-99.0); Mean Platelet Volume 10.8 fL (7.4-10.4); Nucleated Red Blood Cells % 0 %; Platelet Count 209 10^3/uL (130-400); Red Blood Cell Count 3.74 10^6/uL (4.20-5.40); Red Cell Dist. Width 12.6 % (11.5-14.5); White Blood Cell Count 6.1 10^3/uL (4.8-10.8)
[2025-03-21] VITALS (19 sets, daily range): BP systolic 93–159; BP diastolic 46–85; BMI 22.2
[2025-03-21] MEDS: NSS 176 ML IV (07:10)
--- NOTE | 2025-03-21 09:31 | ITS.CL.CATH ---
Compensation Director - Catheterization
Cardiac Catheterization
Procedure Report:
CARDIAC CATHETERIZATION REPORT
Date of Procedure: 03/21/2025
Referring: Gali Salas M.D.
Indication: Severe aortic valve stenosis, abnormal stress test.
PROCEDURE:
1. Right heart catheterization.
2. Coronary angiography.
3. IVUS of the left main coronary artery.
A total of 52 minutes of procedural/moderate sedation was utilized. An independent hospital medical assistant was present to assist with and help manage the patient's level of consciousness and physiologic status.
ACCESS:
1. 6 Slovenian right radial artery using a modified Seldinger technique under ultrasound guidance. The 11 cm sheath was subsequently exchanged for a 35 cm sheath to overcome radial artery spasm.
2. 5 Slovenian right antecubital vein using a previously placed IV.
CATHETERS:
1. 5 Slovenian balloon wedge.
2. 5 Slovenian JL 4.
3. 5 Slovenian AR-1.
4. 6 Slovenian JL 3.5 guiding catheter.
HEMODYNAMIC DATA
Weight (kg): 58.5
AO (s/d/x, mmHg): 168/70/106
LV (s/x, mmHg): Not obtained.
PCWP (a/v/x, mmHg): 26/35/21
PA (s/d/x, mmHg): 46/21/29
RV (s/x, mmHg): 47/7
RA (a/v/x, mmHg): 13/9/7
SVC SvO2 (%): 73.5
IVC SvO2 (%): Not obtained.
RA SvO2 (%): Not obtained.
RV SvO2 (%): Not obtained.
PA SvO2 (%): 67.9
SaO2 (%): 94.5
Hbg (g/dL): 11.4
ALBERT
CO (L/min): 3.69
CI (L/min/m2): 2.27
Thermodilution
CO (L/min): Not performed.
CI (L/min/m2): Not performed.
TPG (mmHg): 8
PVR (Oconnor Units): 2.17
SVR (dynes*seconds*cm^-5): 2146
AVO2 Diff (Volume %): 4.12
AV gradient (x, mmHg): Not obtained.
AV area (cm2): Not obtained.
MV gradient (x, mmHg): Not obtained.
MV area (cm2): Not obtained.
LEFT VENTRICULOGRAPHY: Not performed.
AORTOGRAPHY: Not performed.
CORONARY ANGIOGRAPHY
Dominance: Right.
Left Main: Normal size, bifurcating vessel. There is a densely calcified 70% lesion in the proximal third of the vessel with dampening of the catheter on engagement.
LAD: Normal size vessel giving rise to 1 significant diagonal. There is a 70-80% lesion in the ostial/proximal LAD. This is followed by a 90%, shelflike plaque in the proximal LAD at the origin of the diagonal.
Ramus: Congenitally absent.
Circumflex: Normal size vessel giving rise to 2 obtuse marginals before terminating as a posterolateral branch. There is a 70% lesion in the ostium of the vessel. OM1 is a relatively small vessel arising very high on the circumflex. There is a
subsequent 70% lesion in the mid circumflex and between OM1 and OM 2, which is a much more substantial vessel. There are luminal irregularities with some post stenotic dilation and OM 2.
RCA: Normal size, dominant vessel with a high, anterior, slitlike orifice originating at the confluence of the right and left coronary cusps making the artery nearly impossible to engage. Nonselective angiography showed a long, 70% lesion in the
proximal vessel, culminating in a 90% lesion proximal to the origin of the RV marginal. There is a subsequent 70% lesion in the mid/distal RCA as it approaches the crux.
INTERVENTIONS
1. Successful IVUS of the 70% left main coronary artery lesion, demonstrating occlusive disease (minimal luminal area = 4.6 mm�).
Narrative:
The decision was made to perform intracoronary imaging. The diagnostic catheter was removed over a wire and exchanged for 6 Slovenian JL 3.5 guiding catheter with sideholes. The guiding catheter was advanced into the ascending aorta and seated in the
left main coronary artery. Interestingly, the catheter pressure was noted to dampen even with sideholes. Additional heparin was given to obtain an ACT greater than 250 seconds. After crossing the lesion with a coronary wire into the mid LAD, an
IVUS catheter was advanced through the guiding catheter and into the ostium of the artery. Ring down was performed once the imaging crystal was no longer inside of the guiding catheter. The IVUS catheter was advanced into the distal left main as it
would not cross into the LAD. The JL 3.5 guiding catheter was disengaged to allow full IVUS interrogation of the left main. Intravascular ultrasound was performed in a retrograde fashion using a slow pullback. Intracoronary imaging demonstrated a
normal distal left main coronary artery with severe atherosclerotic disease with calcification in the proximal third of the left main coronary artery. Minimal luminal area of the left main coronary artery was measured at 4.6 mm�. The patient
complained of chest pressure during this procedure which was relieved after disengagement of the left main coronary artery. The IVUS catheter was removed with the coronary wire. The guiding catheter was removed over a standard J-wire.
Closure Device: Vascular band for the right radial artery, manual pressure for the right antecubital vein.
Radiation dose (mGy): 427.00
DAP (cm2.Gy): 44.4532
Fluoroscopy time (minutes): 22.4
CONCLUSIONS:
1. Right dominant circulation with an anterior, slitlike orifice of the RCA at the confluence of the right and left coronary cusps making direct angiography nearly impossible. There is severe, multivessel disease including a 70% lesion of the
proximal RCA culminating in a 90% lesion in the proximal/mid vessel followed by a 70% lesion in the mid/distal vessel as it approaches the crux, a 70% lesion in the ostium of the circumflex followed by a 70% lesion in the mid circumflex and between
OM1 and OM 2, a 70-80% lesion in the ostium/proximal LAD followed by 90%, shelflike plaque in the proximal LAD at the origin of the diagonal and a 70%, densely calcified lesion in the proximal third of the left main coronary artery with catheter
dampening on engagement and occlusive on IVUS (MLA = 4.6 mm�).
2. Moderately elevated filling pressures (PCWP = 21 mmHg at 58.5 kg).
3. Mild, postcapillary pulmonary hypertension (mean PA = 29 mmHg, PCWP = 21 mmHg, CO = 3.69 L/min, PVR = 2.17 Oconnor units), WHO group 2.
4. Severe aortic valve stenosis with moderate aortic valve regurgitation on echocardiography.
RECOMMENDATIONS:
1. Expectant management after cardiac catheterization via right radial/antecubital approach.
2. Limited weight bearing on the right wrist for one week.
3. Consultation with CT surgery regarding optimal revascularization and valve management strategy given her severe, multivessel coronary artery disease with severe aortic valve stenosis.
4. Increase atorvastatin to 80 mg daily.
Copy to: Gali Salas M.D., Joel Jennings M.D.
Juan Plummer DO, FACC, FACP
[2025-03-21] MEDS: LASIX 20 MG IV (10:00)
== END 2025-03-21 14:30 | disposition home or self-care (01) ==
LOC: CATH 06:34
PROVIDERS: ATTENDING PHYSICIAN Internal Medicine Cardiovascular Disease; CONSULT PHYSICIAN Thoracic Surgery (Cardiothoracic Vascular Surgery); FAMILY PHYSICIAN Student in an Organized Health Care Education/Training Program; OTHER PHYSICIAN Internal Medicine Cardiovascular Disease
DX: I08.3 Combined rheumatic disorders of mitral, aortic and tricuspid valves (principal); I12.9 Hypertensive chronic kidney disease with stage 1 through stage 4 chronic kidney disease, or unspecified chronic kidney disease; N18.32 Chronic kidney disease, stage 3b; E78.5 Hyperlipidemia, unspecified; I73.9 Peripheral vascular disease, unspecified; K76.0 Fatty (change of) liver, not elsewhere classified; Z86.73 Personal history of transient ischemic attack (TIA), and cerebral infarction without residual deficits; Z87.891 Personal history of nicotine dependence; Z79.82 Long term (current) use of aspirin
CPT/HCPCS: 92978; 99152; 99153; C1894; C1753; 36415; 85025; 93005; 93456; Q9967

== ENCOUNTER → 2025-03-27 14:48 | Outpatient (REF) | payer MEDICARE, SELFPAY ==
[2025-03-27 17:02] LABS: Blood Urea Nitrogen 21 mg/dl (7-17); Calcium 9.8 mg/dl (8.4-10.2); Carbon Dioxide 23 mmol/L (22-30); Chloride 101 mmol/L (98-107); Glucose 98 mg/dl (70-99); Potassium 4.6 mmol/L (3.5-5.1); Sodium 134 mmol/L (135-145); eGFR 45.76
== END ==
LOC: REG 14:48
PROVIDERS: ATTENDING PHYSICIAN Nurse Practitioner Acute Care; FAMILY PHYSICIAN Student in an Organized Health Care Education/Training Program
DX: I35.0 Nonrheumatic aortic (valve) stenosis (principal)
CPT/HCPCS: 36415; 80048

== ENCOUNTER 2025-04-03 08:31 | Outpatient (RCR) | payer MEDICARE, SELFPAY ==
[2025-04-03 08:50] VITALS: BP 120/88
[2025-04-03] MEDS: NSS 500 IV (08:59)
[2025-04-03 14:30] VITALS: BP 159/56
== END 2025-04-04 09:37 | disposition home or self-care (01) ==
LOC: OID 08:31
PROVIDERS: ATTENDING PHYSICIAN Nurse Practitioner Acute Care; FAMILY PHYSICIAN Student in an Organized Health Care Education/Training Program
DX: I35.0 Nonrheumatic aortic (valve) stenosis (principal); I25.10 Atherosclerotic heart disease of native coronary artery without angina pectoris; I34.0 Nonrheumatic mitral (valve) insufficiency; I36.1 Nonrheumatic tricuspid (valve) insufficiency
CPT/HCPCS: 96360; 96361

== ENCOUNTER → 2025-04-03 08:51 | Outpatient (REF) | payer MEDICARE, SELFPAY | LOC: RAD 08:51 | PROVIDERS: ATTENDING PHYSICIAN Nurse Practitioner Acute Care | DX: I35.0 Nonrheumatic aortic (valve) stenosis (principal) | CPT/HCPCS: 75573; Q9967 ==

== ENCOUNTER 2025-04-11 05:14 | Inpatient (IN) | payer MEDICARE, SELFPAY ==
[2025-03-29 10:21] VITALS: BMI 21.3
[2025-03-29 10:35] LABS: % Basophils 0.5 % (0-2); % Eosinophils 3.4 % (0-6); % Immature Granulocytes 0.2 % (0-0.5); % Lymphocytes 27.8 % (20.5-51.1); % Neutrophils 57.1 % (42.2-75.2); Absolute Eosinophils 0.2 10^3/uL (0-0.7); Absolute Lymphocytes 1.6 10^3/uL (1.2-3.4); Absolute Monocytes 0.6 10^3/uL (0.1-0.6); Absolute Neutrophils 3.2 10^3/uL (1.4-6.5); Hematocrit 34.7 % (37.0-47.0); Hemoglobin 11.7 g/dL (12.0-16.0); Mean Corp Hgb Conc. 33.7 g/dL (33.0-37.0); Mean Corpuscular Hgb 30.2 pg (27.0-31.0); Mean Corpuscular Volume 89.7 fL (81.0-99.0); Mean Platelet Volume 10.8 fL (7.4-10.4); Nucleated Red Blood Cells % 0 %; Platelet Count 247 10^3/uL (130-400); Red Blood Cell Count 3.87 10^6/uL (4.20-5.40); Red Cell Dist. Width 12.5 % (11.5-14.5); White Blood Cell Count 5.7 10^3/uL (4.8-10.8)
--- NOTE | 2025-03-29 10:39 | CM ---
CM following for DC planning needs.
Met w/ patient during PATs for planned CT Surgery, 04/11.
Pt. resides in a private, 2 story home w/ dtr. Bedroom/main bath located on 2nd floor of the home. Home has 1-2 GILLIAN.
Functionally, patient is quite indep. w/ ADLs, mobility without the use of any assisted device. Pt. still drives.
Pt. has RX plan and uses [facility] on [address] for prescription needs.
Reviewed pre and post op routines.
Soap, shower instructions, Cardiac Surgery booklet provided.
Discussed post op MD appointments, visit from CT Transitional Care RN and Cardiac Rehab.
Plan is for CT Surgery 04/11
Anticipated DC plan is for home w/ CT Transitional Care RN.
Will follow
[2025-03-29 11:03] LABS: ALT (SGPT) 17 U/L (0-35); AST (SGOT) 22 U/L (14-36); Albumin 4.2 g/dl (3.5-5.0); Alkaline Phosphatase 57 U/L (38-126); Blood Urea Nitrogen 24 mg/dl (7-17); Calcium 9.7 mg/dl (8.4-10.2); Carbon Dioxide 25 mmol/L (22-30); Chloride 99 mmol/L (98-107); Direct Bilirubin 0.2 mg/dl (0.0-0.4); Estimated Creatinine Clearance 29 ml/min; Glucose 95 mg/dl (70-99); Potassium 4.6 mmol/L (3.5-5.1); Sodium 134 mmol/L (135-145); Total Bilirubin 0.9 mg/dl (0.2-1.3); Total Protein 6.6 g/dl (6.3-8.2); eGFR 38.03
[2025-03-29 11:08] LABS: INR 1.01; PT 13.8 Sec (11.4-14.6)
[2025-03-29 11:09] LABS: APTT 30.5 Sec (23.4-35.0)
[2025-03-29 11:41] LABS: Urine Albumin 1+ (Neg - Trace); Urine Bilirubin Negative (Negative); Urine Character Clear (Clear); Urine Color Yellow; Urine Glucose Negative (Negative); Urine Ketone Negative (Negative); Urine Leukocyte Negative (Negative); Urine Nitrite Negative (Negative); Urine Occult Blood 3+ (Negative); Urine Urobilinogen Negative (Neg - 1+)
[2025-03-29 12:39] LABS: Glycohemoglobin (HgbA1c) 5.7 % (4.0-5.6)
[2025-03-29 13:58] LABS: Urine Amorphous Seen
[2025-03-29 13:59] LABS: Urine White Cell 0-2 /HPF (0-5)
[2025-04-11] VITALS (18 sets, daily range): BP systolic 81–178; BP diastolic 41–89; BMI 21.4
[2025-04-11] MEDS: BACTROBAN 2% OINTMENT 1 APPLIC NASAL ×2 (05:31→20:58)
[2025-04-11] MEDS: PROTONIX 40 MG PO (05:31)
[2025-04-11] MEDS: MAGNESIUM OXIDE 500 MG PO (05:31)
[2025-04-11] MEDS: LOPRESSOR 25 MG PO (05:31)
--- NOTE | 2025-04-11 05:44 | PTCARENOTE ---
Admission questions asked. Patient clipped and CHG cloth bath performed. Labs drawn. Oriented patient to room. Medication reconciliation performed. Allergies confirmed. Awaiting CVOR. Questions encouraged.
[2025-04-11 08:19] LABS: ACT+ - POC 101 Seconds (82-134)
--- NOTE | 2025-04-11 08:45 | CM ---
Reviewed chart. Mrs. Fletcher is in the operating room today. Prior to admission she resides with with her daughter in a two story home with two steps to enter. She has a full flight of steps to get to her bedroom/full bathroom. Prior to
admission she was independent with ambulation and adls. She has a prescription plan and uses [facility]. Medical work-up in progress. The discharge plan is to return home with her daughter and a home visit by the Transitional Care Nurse when
medically stable.
[2025-04-11 09:10] LABS: Urine Albumin Negative (Neg - Trace); Urine Bilirubin Negative (Negative); Urine Character Clear (Clear); Urine Glucose Negative (Negative); Urine Ketone Negative (Negative); Urine Leukocyte Negative (Negative); Urine Nitrite Negative (Negative); Urine Occult Blood 2+ (Negative); Urine Urobilinogen Negative (Neg - 1+)
[2025-04-11 09:12] LABS: Urine Color Yellow
[2025-04-11 09:20] LABS: Urine Red Blood Cell 0-2 /HPF (0-2); Urine Squamous Cell 0-2 /LPF (Few); Urine White Cell 0-2 /HPF (0-5)
[2025-04-11 10:06] LABS: ACT+ - POC 667 Seconds (82-134)
[2025-04-11 10:59] LABS: B.E. - POC -2.1 mmol/L; Glucose - POC 89 mg/dl (70-99); HCO3 - POC 23 mmol/L (21-28); Hematocrit - POC 26 % PCV (37-47); Hemodilution- POC No; Hemoglobin Calculated - POC 8.8; Ionized Calcium - POC 1.18 mmol/L (1.15-1.33); Lactate - POC < 0.30 mmol/L (0.36-0.75); O2 Saturation %Calculated-POC 99.7 % (94-98); PCO2 - POC 42 mmHg (35-48); PO2 - POC 214 mmHg (83-108); Potassium - POC 3.6 mmol/L (3.5-5.1); Sodium - POC 142 mmol/L (136-145); Specimen Type - POC Arterial; pH - POC 7.36 (7.35-7.45)
[2025-04-11 11:46] LABS: ACT+ - POC 634 Seconds (82-134)
[2025-04-11 12:25] LABS: ACT+ - POC 565 Seconds (82-134)
[2025-04-11 12:46] LABS: B.E. - POC -0.1 mmol/L; Glucose - POC 112 mg/dl (70-99); HCO3 - POC 25 mmol/L (21-28); Hematocrit - POC 27 % PCV (37-47); Hemodilution- POC Yes; Hemoglobin Calculated - POC 9.1; Ionized Calcium - POC 0.98 mmol/L (1.15-1.33); Lactate - POC 0.33 mmol/L (0.36-0.75); O2 Saturation %Calculated-POC 99.9 % (94-98); PCO2 - POC 41 mmHg (35-48); PO2 - POC 274 mmHg (83-108); Potassium - POC 5.3 mmol/L (3.5-5.1); Sodium - POC 142 mmol/L (136-145); Specimen Type - POC Arterial; pH - POC 7.39 (7.35-7.45)
[2025-04-11 12:57] LABS: ACT+ - POC 511 Seconds (82-134)
[2025-04-11 13:37] LABS: ACT+ - POC 134 Seconds (82-134)
[2025-04-11 14:02] LABS: B.E. - POC -3.3 mmol/L; Glucose - POC 95 mg/dl (70-99); HCO3 - POC 22 mmol/L (21-28); Hematocrit - POC 25 % PCV (37-47); Hemodilution- POC Yes; Hemoglobin Calculated - POC 8.6; Ionized Calcium - POC 1.29 mmol/L (1.15-1.33); Lactate - POC 0.43 mmol/L (0.36-0.75); O2 Saturation %Calculated-POC 99.8 % (94-98); PCO2 - POC 39 mmHg (35-48); PO2 - POC 251 mmHg (83-108); POC Comment POST; Potassium - POC 3.8 mmol/L (3.5-5.1); Sodium - POC 145 mmol/L (136-145); Specimen Type - POC Arterial; pH - POC 7.36 (7.35-7.45)
--- NOTE | 2025-04-11 14:03 | W.CVOR.SURPR ---
CVOR Surgeon Immed Pre Op
-
I have examined this patient prior to performance of the scheduled procedure.
The patient's condition is unchanged from the time of the dictated/written History and
Physical and the patient is able to undergo the scheduled procedure.
--- NOTE | 2025-04-11 14:03 | W.IMMPOSTOP ---
Addendum entered and electronically signed by Prosper Barrett MD 04/11/25 15:41:
[id number]
Original Note:
Surgical Immed Post Op Note
-
CARDIAC SURGERY OPERATIVE NOTE:
Preoperative Dx:
Severe aortic stenosis (P/M: 72/41, FERNY 0.6)
Moderate eccentric aortic insufficiency
Uwywkysg-dh-jmzwim MR
Rayp-dy-qaxjsrrl TR
Severe TVCAD
B/L ELAINE (50-69%)
CKD - stage III (baseline creat 1.2-1.4)
Anemia (starting Hgb 8.8)
PVD
Hx of temporal cerebral art. aneurysm s/p clip
Hx of L retinal artery occlusion
HTN/HLD
Postoperative Dx:
Same
Mild MR
Procedures:
1) Median sternotomy
2) Takedown of SALVATORE (narrow pedicle)
3) Endoscopic harvest/prep of RLE GSV
4) CABG x 3 (SALVATORE to LAD, GSV to OM2, GSV to RPDA)
5) ELAA (35mm AtriClip)
6) AVR (#21 Inspiris Resilia)
Surgeon:
Prosper Barrett M.D.
Assistants:
Korina Hess PMadhaviA.-CMadhavi; endoscopic harvest/prep of RLE GSV; technical services assistant throughout
Gucci Monreal PMadhaviA.-C.; [id number] sternotomy closure
Anesthesia:
Isai Mosqueda M.D. and Jacqui WallerR.N.A.
Perfusion:
Rachel Yanez C.C.P.; XC: 147min, CPB: 162min
Findings:
SALVATORE was healthy conduit w/ very brisk blood flow; ELD 2.5mm
GSV was healthy conduit w/ slightly variable ELD ranging from 2.5-4.0mm; normal ya
LAD was visible on the epicardial surface, scant scattered calcifications, ELD 2.5mm at midpoint anastomosis
OM2 was visible on the epicardial surface, scant scattered calcifications, ELD 2.5mm
RPDA was visible on the epicardial surface, scant scattered calcifications, ELD 2.5mm
Small, windsock morphology of LIZZIE, good occlusion at base w/ 35mm AtriClip
AVR was tricuspid w/ extensive leaflet calcium; very minor annular extension circumferential. AV annulus sized perfectly for a 21mm valve; 12 interrupted, pledgetted valve sutures placed; valve secured w/ CorKnot. Well-seated on postoperative KARLEE
w/ no AI/PVL, mean gradient 7mmHg.
All cardioprotection achieved w/ retrograde cardioplegia delivery in two divided doses (1200mL/1000mL)
Post-KARLEE: Normal LV; LVEF 60%; mild MR; AV as above
Significant sternal osteoporosis w/ good stability achieved w/ 8 interrupted sternal wires
Implants:
[employer]; 21mm, Inspiris Resilia SN: [id number]
AtriClip 35mm; LOT [id number]
Bipolar epicardial pacing wire x 1 (sewn in-situ)
CT x 4 (B/L pleural, inferior mediastinal, superior mediastinal)
Transfusions:
3U PRBC
Complications:
None
Condition:
71 sinus (-0.2/-0.8); 109/57; 35/21, CVP 14; CO/CI: 3.57/2.56; 100%
GTTS: levophed 5, precedex 0.5, insulin 0.5
Stable/guarded to CVICU
[2025-04-11 14:18] LABS: ACT+ - POC > 1003 Seconds (82-134)
[2025-04-11 14:19] LABS: B.E. - POC 0.3 mmol/L; Glucose - POC 104 mg/dl (70-99); HCO3 - POC 23 mmol/L (21-28); Hematocrit - POC 25 % PCV (37-47); Hemodilution- POC Yes; Hemoglobin Calculated - POC 8.6; Lactate - POC < 0.30 mmol/L (0.36-0.75); PCO2 - POC 31 mmHg (35-48); PO2 - POC 446 mmHg (83-108); Potassium - POC 5.5 mmol/L (3.5-5.1); Sodium - POC 139 mmol/L (136-145); Specimen Type - POC Arterial; pH - POC 7.49 (7.35-7.45)
[2025-04-11 14:20] LABS: Glucose - POC 103 mg/dl (70-99); HCO3 - POC 24 mmol/L (21-28); Hematocrit - POC 25 % PCV (37-47); Hemodilution- POC Yes; Hemoglobin Calculated - POC 8.5; Ionized Calcium - POC 0.97 mmol/L (1.15-1.33); Lactate - POC < 0.30 mmol/L (0.36-0.75); O2 Saturation %Calculated-POC 99.9 % (94-98); PCO2 - POC 40 mmHg (35-48); PO2 - POC 331 mmHg (83-108); Potassium - POC 4.6 mmol/L (3.5-5.1); Sodium - POC 144 mmol/L (136-145); Specimen Type - POC Arterial; pH - POC 7.39 (7.35-7.45)
[2025-04-11 14:20] LABS: B.E. - POC -1.1 mmol/L; Glucose - POC 103 mg/dl (70-99); HCO3 - POC 22 mmol/L (21-28); Hematocrit - POC 26 % PCV (37-47); Hemodilution- POC Yes; Hemoglobin Calculated - POC 8.7; Lactate - POC < 0.30 mmol/L (0.36-0.75); O2 Saturation %Calculated-POC 99.9 % (94-98); PCO2 - POC 29 mmHg (35-48); PO2 - POC 324 mmHg (83-108); Potassium - POC 5.8 mmol/L (3.5-5.1); Sodium - POC 140 mmol/L (136-145); Specimen Type - POC Arterial; pH - POC 7.48 (7.35-7.45)
[2025-04-11 14:38] LABS: Glucose - Point of Care 91 mg/dl (70-99)
--- NOTE | 2025-04-11 14:48 | W.PN.UPDATE ---
Update Note
Progress Note Update
IV fluids: 4 L
U.O.:� 800 mL
Blood:� 3 units pRBC's intra-op
Wires:� V-wires, stitched
gtt's: Levophed - 3, Precedex - 0.5, Insulin - 1
�
NEURO: sedated on Precedex, pupils +2 mm B/L
RESP: #8 ETT @ 21 cm> 450/40%/14/5. Lungs clear B/L. 2 mediastinal (10 cc on arrival) and R/L pleural (15 cc on arrival) chest tubes to -20cm suction. Sanguineous drainage
CV: RRR +S1, S2, no S3, no�rub, no murmur. Aquacel Ag to median sternotomy. RIJ w/[place] locked @ 40 cm. PA 27/13; CVP 8; C.O 3.19/CI 1.99.
ABD: round, soft, no BS
EXT: no edema, +1/4 DP pulses B/L, no femoral bruit, R groin ecchymotic without hematoma, RLE ESTRELLA wrap intact
: Flores with clear yellow urine
�
A/P:
#Coronary Artery Disease with Aortic Stenosis
- POD #0 s/p CAB x 3 (SALVATORE to LAD, GSV to OM2, GSV to RPDA) with AVR (#21 Inspiris Resilia) and ELAA (35 mm AtriClip)
- KARLEE: EF�60%, mild MR, no AI/PVL, AV MG 7
- wean and extubate
- will need instruction regarding antibiotic prophylaxis for dental and invasive procedures
�
# acute surgical blood loss anemia-expected
- Pre-op Hgb 8.8
- 3 u pRBC's transfused intra-op
- Post-op hgb 10.0
- con't trend CBC
�
# CKD - Stage III
- Baseline cr 1.2-1.3
- Cont to trend
# Hyperlipidemia
- resume�atorvastatin
[2025-04-11 14:54] LABS: B.E. -3.3 mmol/L; HCO3 21.2 mmol/L (21-28); O2 Saturation % 98.9 % (94-98); PCO2 35 mmHg (32-35); PO2 94 mmHg (83-108); Potassium 3.9 mMOL/L (3.5-5.1); Sodium 138 mMOL/L (136-145); pH 7.39 (7.35-7.45)
[2025-04-11 14:56] LABS: Hematocrit 29.1 % (37.0-47.0); Platelet Count 133 10^3/uL (130-400)
[2025-04-11 14:57] LABS: INR 1.54
[2025-04-11 14:58] LABS: APTT 36.2 Sec (23.4-35.0)
--- NOTE | 2025-04-11 15:00 | PTCARENOTE ---
Pt to CVICU ~ 1430. Pt intubated and sedated. Precedex infusing as ordered. RASS -3. CPOT 0. Pt is SR on the tele monitor. HR 70s. BP 100-120s/60s. Levo infusing as ordered. CVP ~ 10-16. PAP 30s/teens. CI: 1.99. CO: 3.19. SVR: 2106. Heart tones
audible. B/L DP pulses weak. B/L radial pulses palpable. No edema. Pt w/ ETT #8.0, 23 cm @ R lip. See worklist for full vent settings. FiO2 40%. POX 99%. B/L breath sounds audible. Mediastinal CTx2 and R/L pleural CT to -20 suction, no air-leak
noted at this time, and output WNL. Abdomen soft. Hypoactive BS. Coleman catheter intact and draining clear/yellow urine. Sternal incision w/ Aquacel intact.Right groin puncture intact w/ 4x4. Right leg incision intact w/ Aquacel and wrapped in ESTRELLA
wrap. Right IJ cordis w/ swan and left radial a-line intact, leveled, zeroed, and flushed. PIV x1 intact. Glycemic protocol followed. Jaime hugger applied. EKG/labs/coleman care/mouth care/Xray completed. See worklist for full nursing assessment and
interventions.
[2025-04-11] MEDS: NSS 500 IV (15:12)
[2025-04-11] MEDS: ANCEF 10 IV ×2 (15:12)
[2025-04-11] MEDS: KCL 50 IV (15:13)
[2025-04-11] MEDS: TYLENOL PO ×2 (15:13→22:08)
[2025-04-11 15:21] LABS: Blood Urea Nitrogen 16 mg/dl (7-17); Estimated Creatinine Clearance 43 ml/min; Glucose 93 mg/dl (70-99); Magnesium 3.5 mg/dl (1.6-2.3)
[2025-04-11 15:30] LABS: Glucose - Point of Care 92 mg/dl (70-99)
--- NOTE | 2025-04-11 15:32 | W.PN.CD ---
Today's Communication / Plan
-
Close post-op monitoring and care with weaning of drips and vent as tolerated per CT surgery/CVICU protocol
Impression / Plan
-
79 y/o female (patient of Dr. Salas) with severe , HTN, HLD, CAD, Hx of temporal cerebral art. aneurysm s/p clip, Hx of L retinal artery occlusion is now s/p CABG/AVR.
CAD, severe :
-s/p CABG x 3- (SALVATORE to LAD, GSV to OM2, GSV to RPDA), ELAA (35mm AtriClip), AVR (#21 Inspiris Resilia), Dr. Barrett 04/11/25
-intra-op KARLEE: Severe aortic stenosis, mild aortic regurgitation, valve annulus 21 mm. Normal left ventricular size and systolic function, mild LVH, stage I diastolic dysfunction. Mild central mitral regurgitation. The aorta has atheroma greater
than 5 mm in the descending thoracic segment, with mild to moderate calcifications.
-CT's, coleman, pacer wire in place
-on levophed post-op
-remains intubated and sedated
-post op EKG and tele SR
-ASA, statin, BB when able
-has required 3 units PRBC's (intraop), monitor hgb
HTN:
-monitor post-op
Dyslipidemia:
-statin when able
Data:
Echo 02/09/25: LV ejection fraction is 60-65%. Severe basal inferior hypokinesis/akinesis. Normal right ventricular size and function. Moderate to severe mitral regurgitation. Severe aortic stenosis; peak/mean gradients 72/41 mmHg, calculated FERNY 0.6
cm2. Moderate, eccentric aortic regurgitation. Mild to moderate tricuspid regurgitation. Estimated pulmonary artery pressure of 35-40 mmHg.
Physical Exam
Vital Signs/Labs
Vital Signs
Temp Pulse Resp BP Pulse Ox
95.5 F L 72 14 95/63 99
04/11/25 15:00 04/11/25 15:00 04/11/25 15:00 04/11/25 15:00 04/11/25 15:00
04/10/25 04/11/25 04/12/25
06:59 06:59 06:59
Actual Weight 56.4 kg
04/11/25 14:36
PT 19.0 Sec (11.4-14.6) H 04/11/25 14:36
INR 1.54 04/11/25 14:36
APTT 36.2 Sec (23.4-35.0) H 04/11/25 14:36
Magnesium 3.5 mg/dl (1.6-2.3) H 04/11/25 14:36
Physical Exam
Constitutional: No acute distress
EENT: Anicteric
Cardiovascular: Rhythm & rate is regular
Respiratory: Lungs clear to auscul. and Other (intubated and ventilated)
Neuro/Psych: Other (sedated)
Other: Other (midsternal incision site dressing intact)
Data Reviewed
-
Date of Service: April 11, 2025
EKG: Tracing Personally Visualized and interpreted (SR with ST and T abnormality 72 BPM)
Labs: Labs Reviewed by me
[2025-04-11 16:15] LABS: Glucose - Point of Care 102 mg/dl (70-99)
[2025-04-11] MEDS: LIPITOR PO (16:19)
[2025-04-11] MEDS: NEURONTIN PO ×2 (16:20→22:08)
[2025-04-11] MEDS: PACERONE PO (16:20)
[2025-04-11] MEDS: LR 250 ML IV (17:04)
[2025-04-11 17:05] LABS: Glucose - Point of Care 89 mg/dl (70-99)
--- NOTE | 2025-04-11 17:55 | CON.INTV ---
Consultation
Consultation Request
Date/Time Consultation Requested: 04/11/2025
Date/Time Consultation Performed: 04/11/2025
Requesting Provider: Prosper George
Performing Provider: Rolan Pat
Reason for Consultation: CABG, AVR
Medical History
-
Chief Complaint: Shortness of breath
History of Present Illness:
Patient is a 79-year-old female with known past medical history of multivessel coronary artery disease and aortic stenosis who had an episode of syncope in 2023. This was followed by a stress test and eventually an echocardiogram which was notable
for preserved ejection fraction but severe moderate aortic stenosis. Subsequently patient had a cardiac catheterization last month which showed multivessel coronary artery disease as well as group 2 pulmonary hypertension with elevated pulmonary
capillary wedge pressure. Patient was electively admitted for coronary artery bypass graft and aortic valve replacement. Postsurgery she was transferred to cardiovascular ICU. Roof Plumber consult was requested for further input.
PAST MEDICAL HISTORY:
1. Severe aortic stenosis.
2. Moderate aortic regurgitation.
3. Moderate to severe mitral regurgitation.
4. Mild to moderate tricuspid regurgitation.
5. Hypertension.
6. Hyperlipidemia.
7. Bilateral carotid artery stenosis, 50-69%.
8. Peripheral vascular disease.
9. Chronic kidney disease stage IIIB.
10. Fatty liver disease.
11. 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
12. Left retinal artery occlusion, 01/2025, completing dual
anti-platelet therapy.
13. Brain aneurysm, status post craniotomy and temporal
cerebral aneurysm clipping 2002.
14. Remote migraines.
15. Multilevel degenerative disc disease.
16. Osteoarthritis.
17. Plantar fasciitis.
18. Basal and squamous cell carcinoma, status post multiple
excisions.
19. Mild anemia.
20. Allergic rhinitis.
21. Lymes disease 2010.
22. Bilateral cataracts, awaiting surgery.
23. Remote history of tobacco abuse.
24. Daily alcohol.
SURGICAL HISTORY:
1. Craniotomy and temporal cerebral aneurysm clipping.
2. Left calf skin graft.
3. x3.
4. Tonsillectomy and adenoidectomy.
5. Oral surgery.
SOCIAL HISTORY: The patient lives in a two-story home with her
daughter. She is a former less than half pack per day cigarette
smoker who quit tobacco products altogether in 1970. She reports,
on average, consuming 4 ounces of wine nightly.
Allergies / Home Medications
Allergies
Allergy/AdvReac Type Severity Reaction Status Date / Time
adhesive tape Allergy Skin Verified 04/10/25 10:27
Irritation
Sulfa (Sulfonamide Allergy Rash Verified 04/03/25 09:11
Antibiotics)
[Sulfa(Sulfonamide
Antibiotics)]
Home Medications
�Medication �Instructions �Recorded �Confirmed �Last Taken �Type
hydrochlorothiazide 12.5 mg tablet 12.5 mg PO DAILYPRN PRN swelling 02/16/25 04/11/25 07/12/24 History
lisinopril 20 mg tablet 20 mg PO DAILY 02/16/25 04/11/25 04/08/25 08:00 History
metoprolol succinate 50 mg 50 mg PO DAILY 02/16/25 04/11/25 04/10/25 08:00 History
tablet,extended release 24 hr
aspirin 81 mg chewable tablet 81 mg PO DAILY #0 tabs 02/18/25 04/11/25 04/10/25 08:00 Rx
atorvastatin 40 mg tablet 40 mg PO Q48H 03/21/25 04/11/25 04/06/25 18:00 History
Review of Systems
-
Unable to Obtain full review of systems at this time due to: Other (Patient just got extubated, still a bit drowsy. Denies any pain or difficulty breathing however)
Vitals / Labs / Diagnostic Testing
Vital Signs
Temp Pulse Resp BP Pulse Ox
97.7 F 72 14 105/57 99
04/11/25 17:00 04/11/25 17:00 04/11/25 17:00 04/11/25 17:00 04/11/25 17:00
Lab Data
04/11/25 14:36
Laboratory Results
04/11/25
14:36
PT 19.0 H
INR 1.54
APTT 36.2 H
pH 7.39
pCO2 35
pO2 94
HCO3 21.2
O2 Delivery Level
Diagnostic Testing:
Physical Exam
-
HEENT: Normocephalic
Cardiovascular: S1/S2 and Peripheral Edema (1+ pedal edema on left leg. Right leg is currently wrapped.)
Respiratory: Clear and Non-Labored Respirations
GI: Soft and Non Distended
Neurology: Other (Drowsy, just got extubated)
Skin: Warm
Assessment
-
S/p CABG, left atrial appendage exclusion and bioprosthetic AV replacement, POD # 0
Titrate off pressors per protocol, currently on Levophed @ 2
ECHO reviewed preserved systolic function and aortic stenosis
PA catheter readings reviewed. 39 x 23, mean pressure 28. MAP noted to be around 68
Management of chest tubes per primary service
Patient extubated to nasal cannula at about 1800. Saturating mid 90s on 2 L. Work of breathing normal
ABG(s) reviewed, 7.39, 35, 94.
CXR with no obvious opacities except for mild basilar atelectasis
Maintain supplement oxygen as needed
No prior history of pulmonary disease
Prior PFTs reviewed
Can add nebulizers if needed
Aspiration precautions
Encouraged incentive spirometry, OOB/ambulation/early mobility
Advance diet as tolerated following extubation
GI prophylaxis: On pantoprazole
Monitor critical I/O's
Flores/chest tube output
Hb/platelets postoperatively stable
Trend CBC for now
Can transfuse if indicated for Hb <7, plt <50 in surgical patients
DVT prophylaxis including SCDs
Insulin protocol initiated and ongoing
Transition to SQ/off as indicated per team
We will follow
Critical Care time 58 mins -- The patient is admitted for acute critical illness for the treatment of vital organ failure and/or prevention of further life-threatening conditions. Total care includes time spent in review of history, physical exam,
medications, hemodynamic/ventilator parameters, laboratory data, imaging and discussion with house staff, pharmacy, respiratory therapy, environmental services supervisor, and nursing.
Data:
Spiromety 03/2025: FEV1 98% of predicted, FVC 101% of predicted, FEV1/FVC 74. Normal spirometry.
KARLEE 03/2025: Severe aortic stenosis, mild aortic regurgitation, valve annulus 21 mm.
Normal left ventricular size and systolic function, mild LVH, stage I diastolic dysfunction.
Mild central mitral regurgitation.
The aorta has atheroma greater than 5 mm in the descending thoracic segment, with mild to moderate calcifications.
LHC & RHC 02/2025: 1. Right dominant circulation with an anterior, slitlike orifice of the RCA at the confluence of the right and left coronary cusps making direct angiography nearly impossible. There is severe, multivessel disease including a 70%
lesion of the proximal RCA culminating in a 90% lesion in the proximal/mid vessel followed by a 70% lesion in the mid/distal vessel as it approaches the crux, a 70% lesion in the ostium of the circumflex followed by a 70% lesion in the mid
circumflex and between OM1 and OM 2, a 70-80% lesion in the ostium/proximal LAD followed by 90%, shelflike plaque in the proximal LAD at the origin of the diagonal and a 70%, densely calcified lesion in the proximal third of the left main coronary
artery with catheter dampening on engagement and occlusive on IVUS (MLA = 4.6 mm�).
2. Moderately elevated filling pressures (PCWP = 21 mmHg at 58.5 kg).
3. Mild, postcapillary pulmonary hypertension (mean PA = 29 mmHg, PCWP = 21 mmHg, CO = 3.69 L/min, PVR = 2.17 Oconnor units), WHO group 2.
4. Severe aortic valve stenosis with moderate aortic valve regurgitation on echocardiography.
ECHO 01/2025: LV ejection fraction is 60-65%. Severe basal inferior hypokinesis/akinesis.
Normal right ventricular size and function.
Moderate to severe mitral regurgitation.
Severe aortic stenosis; peak/mean gradients 72/41 mmHg, calculated FERNY 0.6 cm2.
Moderate, eccentric aortic regurgitation.
Mild to moderate tricuspid regurgitation. Estimated pulmonary artery pressure
of 35-40 mmHg.
[2025-04-11 18:00] LABS: Blood Urea Nitrogen - POC 16 mg/dl (3-120); Chloride - POC 113 mmol/L (96-111); Creatinine - POC 1.04 mg/dl (0.3-1.0); Glucose - POC 100 mg/dl (70-99); HCO3 - POC 22 mmol/L (21-28); Hematocrit - POC 29 % PCV (37-47); Hemodilution- POC Yes; Lactate - POC 0.92 mmol/L (0.36-0.75); O2 Saturation %Calculated-POC 97.7 % (94-98); PCO2 - POC 40 mmHg (35-48); PO2 - POC 104 mmHg (83-108); Potassium - POC 4.5 mmol/L (3.5-5.1); Sodium - POC 144 mmol/L (136-145); Specimen Type - POC Arterial; pH - POC 7.36 (7.35-7.45)
[2025-04-11] MEDS: ZOFRAN 4 MG IV (18:18)
--- NOTE | 2025-04-11 18:21 | PTCARENOTE ---
Pt placed on CPAP ~1715. Pt tolerated CPAP settings. Pt sleepy. CT [employer]ER and respiratory at bedside. ABG completed at bedside @1757. Per CT [employer]ER - okay to extubate. Pt extubated by respiratory to 6 L NC @1800. POX 98%. RR 14. Pt remains a little sleepy.
Unable to complete IS at this time. Pt able to softly state name and . Deep breathing encouraged. Emesis x1 shortly after extubation. Zofran given - see MAR. Family updated.
[2025-04-11 18:36] LABS: Glucose - Point of Care 90 mg/dl (70-99)
[2025-04-11 19:07] LABS: Glucose - Point of Care 102 mg/dl (70-99)
[2025-04-11 19:13] LABS: Hematocrit 30.2 % (37.0-47.0); Hemoglobin 10.5 g/dL (12.0-16.0); Platelet Count 151 10^3/uL (130-400)
[2025-04-11] MEDS: OFIRMEV 100 IV (19:16)
[2025-04-11] MEDS: ANCEF 5 IV (19:17)
--- NOTE | 2025-04-11 20:00 | PTCARENOTE ---
Received pt from maria lidkamari. pt is s/p CABGx3, LIZZIE clip, and AVR with Dr. Barrett. pt is resting comfortably in bed. pt is AAOx4 but sleepy. NSR on monitor with PACs. VSS. heart sounds audible, rub present, radial and DP pulses palpable, trace NANNETTE,
temp epicardial V wires set to VVI 50/16/2. lungs diminished throughout, spo2 100% on 6LNC, pt was extubated by wilfredo at 1800, x2MS and r/l pleural CT to -20 wall suction, no airleaks, no tidaling, no crepitus. hypoactive BSx4 quadrants, abdomen
soft non tender. pt voiding clear yellow urine via cloeman catheter. surgical sites maintained. right IJ cordis/swan floated to 40cm, left radial A-line, and PIV all maintained, leveled, and zeroed. levophed and insulin gtt infusing. call mclean within
reach. ongoing monitoring.
[2025-04-11] MEDS: REGLAN 10 MG IV (20:05)
[2025-04-11] MEDS: SENOKOT-S PO (20:57)
[2025-04-11 21:05] LABS: Glucose - Point of Care 102 mg/dl (70-99)
[2025-04-11 21:57] LABS: B.E. -7.2 mmol/L; HCO3 18.8 mmol/L (21-28); Ionized Calcium 1.17 mMOL/L (1.15-1.33); O2 Saturation % 98.9 % (94-98); PCO2 39 mmHg (32-35); PO2 116 mmHg (83-108); Potassium 4.2 mMOL/L (3.5-5.1); pH 7.29 (7.35-7.45)
[2025-04-11] MEDS: LOW STRENGTH ASPIRIN 81 MG PO (22:08)
[2025-04-11] MEDS: CALCIUM GLUCONATE 100 IV (22:27)
[2025-04-11] MEDS: PACERONE 200 MG PO (22:27)
[2025-04-11] MEDS: SODIUM BICARBONATE 100 MEQ IV (22:28)
[2025-04-11 23:12] LABS: Glucose - Point of Care 89 mg/dl (70-99)
[2025-04-11 23:49] LABS: HCO3 23.1 mmol/L (21-28); Ionized Calcium 1.29 mMOL/L (1.15-1.33); O2 Saturation % 99.6 % (94-98); PCO2 40 mmHg (32-35); PO2 108 mmHg (83-108); Potassium 4.2 mMOL/L (3.5-5.1); pH 7.37 (7.35-7.45)
[2025-04-12] VITALS (34 sets, daily range): BP systolic 81–141; BP diastolic 44–76; BMI 22.9
--- NOTE | 2025-04-12 | PTCARENOTE ---
pt assessment unchanged. NSR with PACs on monitor. VSS. pain management, see MAR. x2 amps of bicarb and 2g of calcium given. weaning levophed down. call mclean within reach. will continue to monitor.
[2025-04-12] MEDS: ROXICODONE 5 MG PO ×3 (00:33→08:39)
[2025-04-12 01:14] LABS: Glucose - Point of Care 103 mg/dl (70-99)
[2025-04-12] MEDS: ALBUMIN 5% 250 IV (02:15)
[2025-04-12 02:59] LABS: Glucose - Point of Care 99 mg/dl (70-99)
[2025-04-12 03:14] LABS: Hematocrit 26.6 % (37.0-47.0); Hemoglobin 9.1 g/dL (12.0-16.0); Mean Corp Hgb Conc. 34.2 g/dL (33.0-37.0); Mean Corpuscular Hgb 29.5 pg (27.0-31.0); Mean Corpuscular Volume 86.4 fL (81.0-99.0); Mean Platelet Volume 10.6 fL (7.4-10.4); Platelet Count 120 10^3/uL (130-400); Red Blood Cell Count 3.08 10^6/uL (4.20-5.40); Red Cell Dist. Width 15.2 % (11.5-14.5); White Blood Cell Count 10.4 10^3/uL (4.8-10.8)
[2025-04-12 03:36] LABS: Blood Urea Nitrogen 19 mg/dl (7-17); Calcium 8.5 mg/dl (8.4-10.2); Carbon Dioxide 23 mmol/L (22-30); Chloride 115 mmol/L (98-107); Estimated Creatinine Clearance 35 ml/min; Glucose 97 mg/dl (70-99); Magnesium 2.9 mg/dl (1.6-2.3); Potassium 4.2 mmol/L (3.5-5.1); Sodium 143 mmol/L (135-145)
[2025-04-12] MEDS: ANCEF 5 IV ×2 (03:39→12:09)
--- NOTE | 2025-04-12 04:00 | PTCARENOTE ---
Pt continues to require small amount levophed. CI has also fallen slightly, see vital signs. CVPA ordered pt to stay lined and in bed. ongoing pain management. will continue to monitor.
[2025-04-12] MEDS: LR 250 ML IV ×2 (04:26→08:40)
[2025-04-12 05:08] LABS: Glucose - Point of Care 85 mg/dl (70-99)
[2025-04-12] MEDS: TYLENOL 1000 MG PO ×3 (05:11→22:38)
--- NOTE | 2025-04-12 06:28 | W.PN.CT ---
Today's Communication / Plan
-
-pod #1
-no issues overnight
-got 750 LR and 250 Albumin
-CI 2.42, CO 3.87. Drips: Levo 2, Insulin
-CT outputs: 2 meds 175/265, 2 pleur 170/260 in 12/24 hrs
-Hg preop trended from 11.7 to 8.8- follow Hg, hemetest stool
-current meds (ASA, Plavix, Lipitor, Lopressor, Amio, Protonix
-encourage IS, OOB
Assessment / Plan
-
- Severe symptomatic , mv-CAD - s/p AVR (#21 Inspiris Resilia); CABG x 3 (SALVATORE to LAD, GSV to OM2, GSV to RPDA); ELAA (35mm AtriClip) by Dr. Barrett on 04/11/25, pod #1
- Post-KARLEE: Normal LV; LVEF 60%; mild MR; AV was well-seated w/ no AI/PVL, mean gradient 7mmHg.
- Severe aortic stenosis (P/M: 72/41, FERNY 0.6)
- Moderate eccentric aortic insufficiency
- Smawijrj-eh-ottvlt MR
- Ihji-za-xxchzipg TR
- Severe TVCAD
- B/L ELAINE (50-69%)
- CKD - stage IIIb (baseline creat 1.2-1.4)
- Anemia (starting Hgb 8.8)
- PVD
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
- Hx of L retinal artery occlusion
- HTN/HLD
- Acute on chronic postop blood loss anemia (Hg 8.8 preop from 11.7)- s/p 3 pRBCs intraop
- Acute postop atelectasis
- Acute postop hypovolemia with subsequent hypervolemia
- Acute suspected pericarditis/+ rub
Discussed patient care with: Nursing and Care Team
Subjective
-
Date of Service: April 12, 2025
Objective Data
-
PT 19.0 Sec (11.4-14.6) H 04/11/25 14:36
INR 1.54 04/11/25 14:36
APTT 36.2 Sec (23.4-35.0) H 04/11/25 14:36
Vital Signs
Vital Signs
Temp Pulse Resp BP Pulse Ox
98.7 F 65 15 97/44 99
04/12/25 01:00 04/12/25 01:00 04/12/25 01:00 04/12/25 01:00 04/12/25 01:00
CT Intake/Output/Weight
04/11/25 04/11/25 04/12/25
06:59 18:59 06:59
Intake Total 461.8 / 985.6 523.8 / 985.6
Output Total 590 / 1095 505 / 1095
Balance -128.2 / -109.4 18.8 / -109.4
SaO2: 99
Physical Exam
-
General: Awake and Oriented
Cardiovascular: Regular rate & rhythm and No Murmurs
Respiratory: Decreased Breath Sounds
Sternum: Stable
Incision: Clean, Dry and Intact
Extremities: No Edema
Abdomen: soft, nontender, nondistended, + decreased bowel sounds
Data Reviewed
-
Lab Results: Results Reviewed
Medications: Active Meds Reviewed
Chest X-Ray: Report Reviewed and Image Reviewed
ECG: Report Reviewed and Image Reviewed
[2025-04-12 07:07] LABS: Glucose - Point of Care 92 mg/dl (70-99)
[2025-04-12] MEDS: FLEXERIL 5 MG PO (07:09)
--- NOTE | 2025-04-12 08:10 | W.PN.INTV ---
Addendum entered and electronically signed by Rolan Pat MD 04/13/25 14:43:
-Patient transferred out of ICU
-Title Inspector service will sign off. Please call as needed.
Original Note:
Today's Communication / Plan
Recommendations
- Continue to wean Levophed as tolerated
- Increase activity as tolerated
- Incentive spirometry
Assessment
-
Patient is a 79-year-old female with known past medical history of multivessel coronary artery disease and aortic stenosis who had an episode of syncope in 2023. This was followed by a stress test and eventually an echocardiogram which was notable
for preserved ejection fraction but severe moderate aortic stenosis. Subsequently patient had a cardiac catheterization last month which showed multivessel coronary artery disease as well as group 2 pulmonary hypertension with elevated pulmonary
capillary wedge pressure. Patient was electively admitted for coronary artery bypass graft and aortic valve replacement. Postsurgery she was transferred to cardiovascular ICU. Title Inspector consult was requested for further input.
S/p CABG, left atrial appendage exclusion and bioprosthetic AV replacement, POD # 1
Titrate off pressors per protocol, currently on Levophed @ 1
ECHO reviewed preserved systolic function and aortic stenosis
PA catheter readings reviewed. 34/15, mean pressure 21. MAP noted to be around 67
Management of chest tubes per primary service
Patient extubated to nasal cannula at about 1800 0n 04/11. Saturating mid 95s on 4 L. Work of breathing normal
ACXR with no obvious opacities except for mild basilar atelectasis and possibly trace left sided effusion
Maintain supplement oxygen as needed
No prior history of pulmonary disease
Prior PFTs reviewed
Can add nebulizers if needed
Aspiration precautions
Encouraged incentive spirometry, OOB/ambulation/early mobility
Advance diet as tolerated following extubation
GI prophylaxis: On pantoprazole
Monitor critical I/O's. Cr slightly up at 1.1, baseline tends to be 1.4
Flroes/chest tube output
Hb/platelets postoperatively stable, mild drift. Hb 9.1 today
Trend CBC for now
Can transfuse if indicated for Hb <7, plt <50 in surgical patients
DVT prophylaxis including SCDs
Insulin protocol initiated and ongoing
Transition to SQ/off as indicated per team
-CAD, s/p CABG
-Severe , s/p AVR
-Pulmonary HTN. Group II, related to severe and MR
-HTN. Currently on Levophed
-HLD. Statins
Critical Care time 45 mins -- The patient is admitted for acute critical illness for the treatment of vital organ failure and/or prevention of further life-threatening conditions. Total care includes time spent in review of history, physical exam,
medications, hemodynamic/ventilator parameters, laboratory data, imaging and discussion with house staff, pharmacy, respiratory therapy, vice president fixed income, and nursing.
Data:
Spiromety 03/2025: FEV1 98% of predicted, FVC 101% of predicted, FEV1/FVC 74. Normal spirometry.
KARLEE 03/2025: Severe aortic stenosis, mild aortic regurgitation, valve annulus 21 mm.
Normal left ventricular size and systolic function, mild LVH, stage I diastolic dysfunction.
Mild central mitral regurgitation.
The aorta has atheroma greater than 5 mm in the descending thoracic segment, with mild to moderate calcifications.
LHC & RHC 02/2025: 1. Right dominant circulation with an anterior, slitlike orifice of the RCA at the confluence of the right and left coronary cusps making direct angiography nearly impossible. There is severe, multivessel disease including a 70%
lesion of the proximal RCA culminating in a 90% lesion in the proximal/mid vessel followed by a 70% lesion in the mid/distal vessel as it approaches the crux, a 70% lesion in the ostium of the circumflex followed by a 70% lesion in the mid
circumflex and between OM1 and OM 2, a 70-80% lesion in the ostium/proximal LAD followed by 90%, shelflike plaque in the proximal LAD at the origin of the diagonal and a 70%, densely calcified lesion in the proximal third of the left main coronary
artery with catheter dampening on engagement and occlusive on IVUS (MLA = 4.6 mm�).
2. Moderately elevated filling pressures (PCWP = 21 mmHg at 58.5 kg).
3. Mild, postcapillary pulmonary hypertension (mean PA = 29 mmHg, PCWP = 21 mmHg, CO = 3.69 L/min, PVR = 2.17 Oconnor units), WHO group 2.
4. Severe aortic valve stenosis with moderate aortic valve regurgitation on echocardiography.
ECHO 01/2025: LV ejection fraction is 60-65%. Severe basal inferior hypokinesis/akinesis.
Normal right ventricular size and function.
Moderate to severe mitral regurgitation.
Severe aortic stenosis; peak/mean gradients 72/41 mmHg, calculated FERNY 0.6 cm2.
Moderate, eccentric aortic regurgitation.
Mild to moderate tricuspid regurgitation. Estimated pulmonary artery pressure
of 35-40 mmHg.
Subjective Dataa
Subjective Data
Date of Service:
Date of Service: April 12, 2025
Subjective:
Patient comfortably lying in bed in no acute distress.
Review of Systems
Genitourinary: Other (No new symptoms reported.)
Objective Data
Data Reviewed
Vital Signs / I&O / Oxygen:
Vital Signs
Temp Pulse Resp BP Pulse Ox
98.7 F 67 24 107/45 99
04/12/25 07:00 04/12/25 07:00 04/12/25 07:00 04/12/25 07:00 04/12/25 07:00
Intake and Output
04/11/25 04/12/25 04/13/25
06:59 06:59 06:59
Intake Total 1416.8 / 1441.0 24.2 / 24.2
Output Total 1295 / 1355 60 / 60
Balance 121.8 / 86.0 -35.8 / -35.8
SaO2 [CPAP/PSV] 99
SaO2 [SIMV] 99
SaO2 99
Nasal Cannula flow liters per 2
minute
Physical Exam
General: Comfortable
HEENT: Normocephalic
Cardiovascular: S1-S2 and Peripheral Edema (1+ edema on exam)
Respiratory: Clear and Non-Labored Respirations
GI: Soft and Non Distended
Neurology: Awake and Alert
Skin: Warm
Labs/Micro/Reports
Lab Data
04/12/25 02:55
04/12/25 02:55
Laboratory Results
04/11/25 04/11/25 04/11/25
14:36 21:51 23:42
PT 19.0 H
INR 1.54
APTT 36.2 H
pH 7.39 7.29 L 7.37
pCO2 35 39 H 40 H
pO2 94 116 H 108
HCO3 21.2 18.8 L 23.1
O2 Delivery Level
--- NOTE | 2025-04-12 08:30 | PTCARENOTE ---
Assumed care of patient. Walking rounds completed with previous RN. Pt assessed while she was lying in bed. Pt alert and oriented x4. Rates sternal pain 4/10. Denies shortness of breath and nausea. HERNANDEZ with equal strength throughout. SR with PAC on
tele with rates in the 60s-70s. BP 100/60. +Rub. Bilateral radial and DP pulses weakly palpable. Hand and b/l lower extremity edema +1. CI 2.33. PA pressures 30s/10s. CVP 12. Epicardial v-wire to back up 50/6/3, no pacing noted. POX 100% on 4L,
titrated to 2L, POX 99%. Lungs diminished throughout. No cough noted. Mediastinal chest tubes x2 y-sited to 1 atrium to -20cm suction draining red fluid. Right and left pleural chest tubes y-sited to 1 atrium to -20cm suction draining red fluid. No
air leaks, tidaling, crepitus noted. IS encouraged-500mL achieved. Abdomen soft, round, nontender. Hypoactive BS. Pt tolerating ice chips & water. Flores intact draining clear yellow urine. Sternal incision covered with Antibacterial dressing, CDI.
Chest tube dressing CDI. Right groin puncture site covered with gauze, ecchymotic, soft. Right SVG harvest site covered with Antibacterial dressing and ESTRELLA, CDI. Right IJ cordis and swan floated to 40cm. Left radial logan intact with appropriate
waveform. All lines flushed, leveled, zeroed. Right hand PIV intact infusing insulin gtt per Critical Care Glycemic Protocol. KVO x2 infusing. 250mL LR bolus infusing per CT STATE INSPECTOR. Levo titrated off. See MAR for medication administration. See worklist
for complete nursing assessment. Plan of care reviewed and patient in agreement.
[2025-04-12] MEDS: LIDOCAINE 4% PATCH 1 PATCH TOPICAL (08:35)
[2025-04-12] MEDS: PACERONE 200 MG PO ×3 (08:36→22:38)
[2025-04-12] MEDS: LOW STRENGTH ASPIRIN 81 MG PO (08:36)
[2025-04-12] MEDS: PROTONIX 40 MG PO (08:36)
[2025-04-12] MEDS: NEURONTIN 100 MG PO ×2 (08:36→16:17)
[2025-04-12] MEDS: SENOKOT-S 1 TABLET PO (08:36)
[2025-04-12] MEDS: PLAVIX 75 MG PO (08:36)
[2025-04-12] MEDS: LOPRESSOR PO (08:36)
[2025-04-12] MEDS: BACTROBAN 2% OINTMENT 1 APPLIC NASAL ×2 (08:36→20:22)
[2025-04-12 08:53] LABS: Glucose - Point of Care 97 mg/dl (70-99)
--- NOTE | 2025-04-12 10:00 | PTCARENOTE ---
CT SENIOR SECURITY ANALYST notified of UO and restart of levo.
[2025-04-12] MEDS: NSS IV (10:27)
[2025-04-12] MEDS: ProAmatine 10 MG PO ×2 (11:03→15:05)
[2025-04-12 11:04] LABS: Glucose - Point of Care 114 mg/dl (70-99)
--- NOTE | 2025-04-12 12:00 | PTCARENOTE ---
Pt reassessed. Chest tube dressing changed. V-wire insulated per orders. [place] d/c. New dressing applied. Pt tolerated. Assisted OOB with 2 assist. Pt tolerated. BP stable, levo titrated off. BP 100/53. POX 95% on RA. Surgical sites stable. Flores
draining adequate clear yellow urine. CT output WNL. No other acute changes.
[2025-04-12 13:12] LABS: Glucose - Point of Care 99 mg/dl (70-99)
--- NOTE | 2025-04-12 13:33 | W.PN.ANS.POP ---
Anesthesia Post Operative
- Anesthesia Post Op Note
Vital Signs Stable-See Nursing Note: Yes
Airway Patent: Yes
Adequate Pain Control: Yes
Change in Mental Status: No
Current Postoperative Nausea & Vomiting: No
Anesthesia Complications: No
General Anesthetic Recall: No
Unplanned Admission: No
Post Op Hydration Adequate: Yes
[2025-04-12] MEDS: ZOFRAN 4 MG IV (14:03)
--- NOTE | 2025-04-12 14:10 | W.PN.CD ---
Today's Communication / Plan
-
comfortable in chair
stable
remains in sinus
continue post op care per CT surgery
Impression / Plan
-
79 y/o female (patient of Dr. Salas) with severe , HTN, HLD, CAD, Hx of temporal cerebral art. aneurysm s/p clip, Hx of L retinal artery occlusion is now s/p CABG/AVR.
CAD, severe :
-s/p CABG x 3- (SALVATORE to LAD, GSV to OM2, GSV to RPDA), ELAA (35mm AtriClip), AVR (#21 Inspiris Resilia), Dr. Barrett 04/11/25
comfortable and in a chair. In sinus
HTN:
-monitor post-op
Dyslipidemia:
-statin
Data:
Echo 02/09/25: LV ejection fraction is 60-65%. Severe basal inferior hypokinesis/akinesis. Normal right ventricular size and function. Moderate to severe mitral regurgitation. Severe aortic stenosis; peak/mean gradients 72/41 mmHg, calculated FERNY 0.6
cm2. Moderate, eccentric aortic regurgitation. Mild to moderate tricuspid regurgitation. Estimated pulmonary artery pressure of 35-40 mmHg.
Physical Exam
Vital Signs/Labs
Vital Signs
Temp Pulse Resp BP Pulse Ox
97.9 F 73 19 107/62 93
04/12/25 12:00 04/12/25 14:02 04/12/25 14:02 04/12/25 14:02 04/12/25 14:02
04/11/25 04/12/25 04/13/25
06:59 06:59 06:59
Actual Weight 56.4 kg 60.6 kg
04/12/25 02:55
04/12/25 02:55
PT 19.0 Sec (11.4-14.6) H 04/11/25 14:36
INR 1.54 04/11/25 14:36
APTT 36.2 Sec (23.4-35.0) H 04/11/25 14:36
Magnesium 2.9 mg/dl (1.6-2.3) H 04/12/25 02:55
Physical Exam
Constitutional: No acute distress
Cardiovascular: Rhythm & rate is regular
GI: Soft
Neuro/Psych: Alert
Data Reviewed
-
Date of Service: April 12, 2025
Medical Decision Making: Reviewed Test Results
Medical Tests (PFT, Pathology etc): Report Reviewed by me
Labs: Labs Reviewed by me
--- NOTE | 2025-04-12 14:55 | CM ---
Reviewed chart. Met with Mrs. Fletcher and her family to review discharge plans. Mrs. Fletcher was sleeping. Family states she was out in the chair for awhile today and ate some lunch today. Her family states they will be staying with her when
she goes home to assist in her care. We reviewed a home visit by the Transitional Care Nurse. Prior to admission she resides with her daughter in a two story home with one to two steps to enter. She has to go up a full flight of steps to get to
bedroom\\full bathroom. Prior to admission she was independent with ambulation and adls. She has a prescription plan and uses [facility]. Will need to see her current functional level to see if she will have any skilled care needs. Medical
work-up in progress. The discharge plan is to return home with her daughter and a home visit by the Transitional Care Nurse when medically stable.
[2025-04-12 15:11] LABS: Glucose - Point of Care 90 mg/dl (70-99)
--- NOTE | 2025-04-12 16:00 | PTCARENOTE ---
Pt reassessed. Drowsy, resting in bed. Rates sternal pain as 'slight'. C/o intermittent nausea, zofran given. Surgical sites stable. CT output WNL. UO low, CT MERCHANT TAILOR notified. SR on tele with rates in the 60s. BP 95/55 via cuff 123/46 via logan. Right
leg jeff d/c, SVG harvest site covered with antibacterial dressing, small amount of drainage. Upper leg ecchymotic. Insulin gtt d/c 1500 per orders. NSS KVO infusing. No other acute changes.
[2025-04-12] MEDS: KLOR-CON 20 MEQ PO (16:17)
[2025-04-12] MEDS: LASIX 40 MG IV (16:17)
[2025-04-12] MEDS: REGLAN 10 MG IV (17:26)
[2025-04-12] MEDS: FLEXBUMIN 50 IV (17:27)
[2025-04-12 18:09] LABS: Blood Urea Nitrogen 27 mg/dl (7-17); Calcium 8.4 mg/dl (8.4-10.2); Carbon Dioxide 19 mmol/L (22-30); Chloride 110 mmol/L (98-107); Estimated Creatinine Clearance 24 ml/min; Glucose 105 mg/dl (70-99); Potassium 5.3 mmol/L (3.5-5.1); Sodium 136 mmol/L (135-145)
--- NOTE | 2025-04-12 18:15 | PTCARENOTE ---
CT PA notified of continued nausea. At bedside to examine patient. Abdominal xray ordered. Compazine administered.
[2025-04-12] MEDS: COMPAZINE 10 MG IV (18:28)
[2025-04-12] MEDS: ProAmatine PO (18:30)
--- NOTE | 2025-04-12 20:00 | PTCARENOTE ---
Received pt from [facility]. pt is POD 1 from CABGx3, LIZZIE clip, and AVR with Dr. Barrett. pt is resting comfortably in bed. pt is oriented x4 but very drowsy, moves all extremities appropriately, b/l strength even. NSR on monitor with PACs. VSS. heart
sounds audible, rub present, radial and DP pulses palpable, +1 anasarca, temp epicardial insulated. lungs diminished throughout, spo2 98% on RA, x2MS and r/l pleural CT to -20 wall suction, no airleaks, no tidaling, no crepitus. hypoactive BSx4
quadrants, abdomen soft non tender, pt has been nausea all day. pt voiding clear yellow urine via coleman catheter, low urine output. surgical sites maintained. right IJ cordis, left radial A-line, and PIV all maintained, leveled, and zeroed. l call
mclean within reach. ongoing monitoring.
[2025-04-12] MEDS: LOPRESSOR 12.5 MG PO (20:22)
[2025-04-12] MEDS: SENOKOT-S PO (20:23)
[2025-04-12 21:19] LABS: Ionized Calcium 1.15 mMOL/L (1.15-1.33)
[2025-04-12 21:41] LABS: Blood Urea Nitrogen 29 mg/dl (7-17); Calcium 8.5 mg/dl (8.4-10.2); Carbon Dioxide 20 mmol/L (22-30); Chloride 109 mmol/L (98-107); Estimated Creatinine Clearance 22 ml/min; Glucose 105 mg/dl (70-99); Magnesium 2.8 mg/dl (1.6-2.3); Potassium 4.8 mmol/L (3.5-5.1); Sodium 137 mmol/L (135-145); eGFR 28.13
[2025-04-12] MEDS: NEURONTIN PO (22:39)
[2025-04-13] VITALS (27 sets, daily range): BP systolic 86–153; BP diastolic 47–74; PULSE 62; O2SAT 96; BMI 23.6
--- NOTE | 2025-04-13 | PTCARENOTE ---
per CVPA, cardene gtt started. gtt stopped at oooo. pt is resting comfortably in bed. will continue to monitor.
[2025-04-13 02:42] LABS: Hemoglobin 8.5 g/dL (12.0-16.0); Mean Corpuscular Hgb 29.8 pg (27.0-31.0); Mean Corpuscular Volume 87.7 fL (81.0-99.0); Mean Platelet Volume 10.4 fL (7.4-10.4); Platelet Count 103 10^3/uL (130-400); Red Blood Cell Count 2.85 10^6/uL (4.20-5.40); Red Cell Dist. Width 15.2 % (11.5-14.5); White Blood Cell Count 12.2 10^3/uL (4.8-10.8)
[2025-04-13 02:54] LABS: Blood Urea Nitrogen 35 mg/dl (7-17); Calcium 8.6 mg/dl (8.4-10.2); Carbon Dioxide 18 mmol/L (22-30); Chloride 111 mmol/L (98-107); Estimated Creatinine Clearance 19 ml/min; Glucose 112 mg/dl (70-99); Magnesium 2.9 mg/dl (1.6-2.3); Potassium 5.1 mmol/L (3.5-5.1); Sodium 137 mmol/L (135-145); eGFR 24.79
[2025-04-13 03:48] LABS: B.E. -7.8 mmol/L; HCO3 17.4 mmol/L (21-28); O2 Saturation % 96.4 % (94-98); PCO2 33 mmHg (32-35); PO2 72 mmHg (83-108); pH 7.33 (7.35-7.45)
--- NOTE | 2025-04-13 04:00 | PTCARENOTE ---
pt assessment unchanged. lab drawn and sent. will continue to monitor
[2025-04-13] MEDS: SODIUM BICARBONATE 100 MEQ IV (04:33)
[2025-04-13] MEDS: TYLENOL 1000 MG PO ×3 (05:28→22:06)
[2025-04-13 05:51] LABS: B.E. -2.2 mmol/L; HCO3 22.3 mmol/L (21-28); O2 Saturation % 96.2 % (94-98); PCO2 36 mmHg (32-35); PO2 67 mmHg (83-108); Potassium 4.4 mMOL/L (3.5-5.1)
--- NOTE | 2025-04-13 07:08 | W.PN.CD ---
Today's Communication / Plan
-
Furosemide 80 mg IV x1 and monitor.
Consider nephrology involvement.
Ambulate.
Incentive spirometry.
Impression / Plan
-
Impression/Plan: 79 y/o female (patient of Dr. Salas) with HTN, HLD, Hx of temporal cerebral art. aneurysm s/p clip, L retinal artery occlusion, severe and CAD admitted for elective CABG/AVR.
#CAD:
-Chronic, progressive.
-s/p CABG x 3- (SALVATORE to LAD, GSV to OM2, GSV to RPDA) with Dr. Barrett, 04/11/25.
-Routine post operative management.
-Ambulate.
-Incentive spirometry.
-Pain/chest tube management per CTS.
-Increase furosemide to 80 mg IV x1 and monitor UOP.
#Severe :
-Chronic, progressive.
-S/P #21 Mcmanus Inspiris Resilia AV with Dr. Barrett, 04/11/2025.
-S/P #35 Atriclip LAAE.
-Post operative management as above.
#DEENA
-Acute.
-Creatinine up to 2.0.
-Clearly not volume depleated.
-I suspect this is cardiorenal.
-Continue diuresis.
#HTN:
-Chronic, stable.
-Restart lisinopril 20 mg daily when BP dictates.
-Avoid midodrine.
#Dyslipidemia:
-Chronic, stable.
-High dose, high potency statin.
Subjective/Interval History:
Intermittent nicardipine.
Weight is up 1.7 kg from yesterday.
SaO2 100% on 4 LNC.
Furosemide 40 mg IV given yesterday.
Creatinine up to 2.0.
Data:
Echo 02/09/25:
CONCLUSIONS
LV ejection fraction is 60-65%. Severe basal inferior hypokinesis/akinesis.
Normal right ventricular size and function.
Moderate to severe mitral regurgitation.
Severe aortic stenosis; peak/mean gradients 72/41 mmHg, calculated FERNY 0.6 cm2.
Moderate, eccentric aortic regurgitation.
Mild to moderate tricuspid regurgitation. Estimated pulmonary artery pressure
of 35-40 mmHg.
Compared to previous echo on 02/17/2024, slightly progressive mitral
regurgitation and aortic regurgitation are noted.
Cardiac Catheterization, 03/21/2025:
CONCLUSIONS:
1. Right dominant circulation with an anterior, slitlike orifice of the RCA at the confluence of the right and left coronary cusps making direct angiography nearly impossible. There is severe, multivessel disease including a 70% lesion of the
proximal RCA culminating in a 90% lesion in the proximal/mid vessel followed by a 70% lesion in the mid/distal vessel as it approaches the crux, a 70% lesion in the ostium of the circumflex followed by a 70% lesion in the mid circumflex and between
OM1 and OM 2, a 70-80% lesion in the ostium/proximal LAD followed by 90%, shelflike plaque in the proximal LAD at the origin of the diagonal and a 70%, densely calcified lesion in the proximal third of the left main coronary artery with catheter
dampening on engagement and occlusive on IVUS (MLA = 4.6 mm�).
2. Moderately elevated filling pressures (PCWP = 21 mmHg at 58.5 kg).
3. Mild, postcapillary pulmonary hypertension (mean PA = 29 mmHg, PCWP = 21 mmHg, CO = 3.69 L/min, PVR = 2.17 Oconnor units), WHO group 2.
4. Severe aortic valve stenosis with moderate aortic valve regurgitation on echocardiography.
CABG/AVR, 04/11/2025:
PROCEDURES:
1. Median sternotomy
2. Takedown of SALVATORE (narrow pedicle)
3. Endoscopic harvest/prep of RLE GSV
4. CABG x 3 (SALVATORE to LAD, GSV to OM2, GSV to RPDA)
5. ELAA (35mm AtriClip)
6. AVR (#21 Inspiris Resilia)
Physical Exam
Vital Signs/Labs
Vital Signs
Temp Pulse Resp BP Pulse Ox
37.0 C 69 13 112/58 100
04/13/25 04:00 04/13/25 06:30 04/13/25 06:43 04/13/25 03:00 04/13/25 06:43
04/11/25 04/12/25 04/13/25
11:59 11:59 11:59
Actual Weight 56.4 kg 60.6 kg 62.3 kg
04/13/25 02:10
04/13/25 02:10
PT 19.0 Sec (11.4-14.6) H 04/11/25 14:36
INR 1.54 04/11/25 14:36
APTT 36.2 Sec (23.4-35.0) H 04/11/25 14:36
Magnesium 2.9 mg/dl (1.6-2.3) H 04/13/25 02:10
Physical Exam
Constitutional: No acute distress and Comfortable
EENT: Anicteric and Moist mucous membranes
Cardiovascular: Rhythm & rate is regular, Pedal edema present, JVD present, S1S2 is normal and Murmur/rub/gallop absent
Respiratory: Respiratory effort normal and Other (Decreased throughout.)
GI: Soft, Distention absent, Flat, Non tender and Normal bowel sounds
Neuro/Psych: AO x 3
Data Reviewed
-
Date of Service: April 13, 2025
Medical Decision Making: Reviewed Test Results, Independent Historian Assessment and Test Interpretation
EKG: Tracing Personally Visualized and interpreted and Report Reviewed by me
Echo: Report Reviewed by me
X-Ray/CT/US/MRI/NUC/PET: Image Personally Visualized and interpreted and Report Reviewed by me
Medical Tests (PFT, Pathology etc): Image Personally Visualized and interpreted and Report Reviewed by me
Labs: Labs Reviewed by me
Old Records: Reviewed
--- NOTE | 2025-04-13 07:57 | W.PN.CT ---
Today's Communication / Plan
-
-pod #2
-sleepy - minimize narcs
-Cr is trending up - 2.0 today (1.4 preop). UO 10-25/hr overnight. Will ask Nephrology to evaluate
-didn't respond to iv Lasix 04/12.Will try giving volume, followed by diuretic
-Mg held
-pOx 67 this am. Started 4L NC O2
-maintain map >65
-encourage IS
Assessment / Plan
-
- Severe symptomatic , mv-CAD - s/p AVR (#21 Inspiris Resilia); CABG x 3 (SALVATORE to LAD, GSV to OM2, GSV to RPDA); ELAA (35mm AtriClip) by Dr. Barrett on 04/11/25, pod #2
- Post-KARLEE: Normal LV; LVEF 60%; mild MR; AV was well-seated w/ no AI/PVL, mean gradient 7mmHg.
- Severe aortic stenosis (P/M: 72/41, FERNY 0.6)
- Moderate eccentric aortic insufficiency
- Wacqfkss-tf-kixvaf MR
- Mwmw-ux-zjayhwvq TR
- Severe TVCAD
- B/L ELAINE (50-69%)
- CKD - stage IIIb (baseline creat 1.2-1.4)
- Anemia (starting Hgb 8.8)
- PVD
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
- Hx of L retinal artery occlusion
- HTN/HLD
- Acute on chronic postop blood loss anemia (Hg 8.8 preop from 11.7)- s/p 3 pRBCs intraop
- Acute postop atelectasis
- Acute postop hypovolemia with subsequent hypervolemia
- Acute suspected pericarditis/+ rub
- DEENA on CKD
Discussed patient care with: Nursing and Care Team
Subjective
-
Date of Service: April 13, 2025
Objective Data
-
Lab Results
04/13/25 02:10
04/13/25 02:10
PT 19.0 Sec (11.4-14.6) H 04/11/25 14:36
INR 1.54 04/11/25 14:36
APTT 36.2 Sec (23.4-35.0) H 04/11/25 14:36
Vital Signs
Vital Signs
Temp Pulse Resp BP Pulse Ox
98.6 F 69 13 112/58 100
04/13/25 04:00 04/13/25 06:30 04/13/25 07:00 04/13/25 03:00 04/13/25 07:00
CT Intake/Output/Weight
04/12/25 04/13/25 04/13/25
18:59 06:59 18:59
Intake Total 1250.4 / 1360.4 100 / 1360.4
Output Total 575 / 945 290 / 945 80 / 80
Balance 675.4 / 415.4 -190 / 415.4 -70 / -70
SaO2: 100
Physical Exam
-
General: Awake and Oriented
Cardiovascular: Regular rate & rhythm and No Murmurs
Respiratory: Decreased Breath Sounds
Sternum: Stable
Incision: Clean, Dry and Intact
Abdomen: soft, nontender, nondistended, + decreased bowel sounds
Extremities: trace edema b/l
Data Reviewed
-
Lab Results: Results Reviewed
Medications: Active Meds Reviewed
Chest X-Ray: Report Reviewed and Image Reviewed
ECG: Report Reviewed and Image Reviewed
[2025-04-13] MEDS: LIDOCAINE 4% PATCH 1 PATCH TOPICAL (08:41)
[2025-04-13] MEDS: BACTROBAN 2% OINTMENT 1 APPLIC NASAL ×2 (08:42→19:19)
[2025-04-13] MEDS: NEURONTIN 100 MG PO ×3 (08:42→22:06)
[2025-04-13] MEDS: PACERONE 200 MG PO ×3 (08:42→22:07)
[2025-04-13] MEDS: PLAVIX 75 MG PO (08:42)
[2025-04-13] MEDS: PROTONIX 40 MG PO (08:42)
[2025-04-13] MEDS: LOW STRENGTH ASPIRIN 81 MG PO (08:42)
[2025-04-13] MEDS: LOPRESSOR 12.5 MG PO (08:42)
[2025-04-13] MEDS: SENOKOT-S 1 TABLET PO ×2 (08:42→19:19)
[2025-04-13] MEDS: ProAmatine PO (08:42)
--- NOTE | 2025-04-13 08:45 | PTCARENOTE ---
Resumed care of patient. Walking rounds completed with previous RN. Pt assessed while she was sitting in the chair. Pt alert and oriented x4. Denies pain, shortness of breath, and nausea. HERNANDEZ with equal strength throughout. NSR on tele with rates in
the 60s. BP 123/58 via cuff, 140/56 via logan. Bilateral radial and DP pulses weakly palpable. +1 pitting edema to lower extremities & hands. Epicardial v-wire insulated. +rub. POX 100% on 4L NC, titrated to RA, POX 98%. Lungs diminished in the
bases. No cough noted. IS encouraged-500ml achieved. Mediastinal chest tubes y-sited to 1 atrium to -20cm suction draining serosanguinous fluid. Right and left pleural chest tubes y-sited to 1 atrium to -20cm suction draining serosanguinous fluid.
No air leaks, tidaling, crepitus noted. Abdomen soft, nontender. hypoactive BS. Flores draining inadequate amounts of clear yellow urine, CT MENTAL HEALTH PROGRAM MANAGER aware. Sternal incision covered with Aquacel-CDI. Chest tube dressing, CDI. Right groin puncture site
ecchymotic, soft, dressing CDI. Right SVG harvest covered with Aquacel- old drainage. Right IJ cordis intact infusing NSS KVO. Left radial logan intact with appropriate waveform, flushed, leveled, zeroed. PIV intact. See MAR for medication
administration. See worklist for complete nursing assessment. Plan of care reviewed and patient in agreement.
[2025-04-13] MEDS: NSS 500 IV (08:50)
[2025-04-13] MEDS: FLEXBUMIN 50 IV (09:04)
--- NOTE | 2025-04-13 10:01 | W.CON.NEPH ---
Consultation
-
Date/Time Consultation Requested: 04/13/25 0804
Date/Time Consultation Performed: 04/13/25 1000
Requesting Provider: Kim Gr NP
Performing Provider: Deborah Allison
Reason for Consultation: DEENA
Medical History
-
Chief Complaint: and CAD
History of Present Illness:
79-year-old female with known past medical history of HTN on HCTZ, lisinopril, metoprolol, CKD 3 baseline cr 1.1, HLD on statin, h/o cerebral aneurysm rupture on 2002 requiring craniotomy, who noted to have severe and further eval noted
multivessel coronary artery in February. She admitted on 04/11 for elective CABGx3, and AVR. She underwent surgery successfully. POst op she had hypotension requiring pressor briefly and now BP seem to improve infact required cardene too. Her cr was at
1.1 on admit and now increasing to 2 with decreasing UOP despite diuretic hence nephrology consulted. Pt reports surgical pain is tolerable, has some chr back pain. No n/v. No SOB. Mild edema. Has coleman catheter since surg. No diarrhea. She received
3 units of PRBC post op.
Past Medical History
1. Severe aortic stenosis.
2. Moderate aortic regurgitation.
3. Moderate to severe mitral regurgitation.
4. Mild to moderate tricuspid regurgitation.
5. Hypertension.
6. Hyperlipidemia.
7. Bilateral carotid artery stenosis, 50-69%.
8. Peripheral vascular disease.
9. Chronic kidney disease stage IIIB.
10. Fatty liver disease.
11. 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
12. Left retinal artery occlusion, 01/2025, completing dual anti-platelet therapy.
13. Brain aneurysm, status post craniotomy and temporal cerebral aneurysm clipping 2002.
14. Remote migraines.
15. Multilevel degenerative disc disease.
16. Osteoarthritis.
17. Plantar fasciitis.
18. Basal and squamous cell carcinoma, status post multiple excisions.
19. Mild anemia.
20. Allergic rhinitis.
21. Lymes disease 2010.
22. Bilateral cataracts, awaiting surgery.
23. Remote history of tobacco abuse.
24. Daily alcohol.
Past Surgical History: Other (1. Craniotomy and temporal cerebral aneurysm clipping. 2. Left calf skin graft. 3. x3. 4. Tonsillectomy and adenoidectomy. 5. Oral surgery.)
Social History
Tobacco: Former Smoker (quit 1970)
Alcohol: Daily (4 ounces of wine daily)
Drug: None
Family History
no CKD
Family History: Not Pertinent
Allergies / Home Medications
Allergy/AdvReac Type Severity Reaction Status Date / Time
adhesive tape Allergy Skin Verified 04/10/25 10:27
Irritation
Sulfa (Sulfonamide Allergy Rash Verified 04/12/25 16:01
Antibiotics)
[Sulfa(Sulfonamide
Antibiotics)]
�Medication �Instructions �Recorded �Confirmed �Type
hydrochlorothiazide 12.5 mg tablet 12.5 mg PO DAILYPRN PRN swelling 02/16/25 04/11/25 History
lisinopril 20 mg tablet 20 mg PO DAILY Blood Pressure 02/16/25 04/11/25 History
metoprolol succinate 50 mg 50 mg PO DAILY Blood Pressure 02/16/25 04/11/25 History
tablet,extended release 24 hr
atorvastatin 40 mg tablet 40 mg PO Q48H High Cholesterol 03/21/25 04/11/25 History
aspirin 81 mg chewable tablet 81 mg PO DAILY Blood Clot 04/12/25 04/11/25 History
Prevention/Tx
Review of Systems
-
All other systems: Negative unless noted
Physical Exam
Vital Signs
Vital Signs
Temp Pulse Resp BP Pulse Ox
98.6 F 69 13 112/58 100
04/13/25 04:00 04/13/25 06:30 04/13/25 07:00 04/13/25 03:00 04/13/25 07:57
Lab Results
WBC 12.2 10^3/uL (4.8-10.8) H 04/13/25 02:10
RBC 2.85 10^6/uL (4.20-5.40) L 04/13/25 02:10
Hgb 8.5 g/dL (12.0-16.0) L 04/13/25 02:10
Hct 25.0 % (37.0-47.0) L 04/13/25 02:10
Plt Count 103 10^3/uL (130-400) L 04/13/25 02:10
Sodium 137 mmol/L (135-145) 04/13/25 02:10
Potassium 5.1 mmol/L (3.5-5.1) 04/13/25 02:10
Chloride 111 mmol/L (98-107) H 04/13/25 02:10
Carbon Dioxide 18 mmol/L (22-30) L 04/13/25 02:10
BUN 35 mg/dl (7-17) H 04/13/25 02:10
Creatinine 2.0 mg/dL (0.6-1.0) H 04/13/25 02:10
eGFR 24.79 04/13/25 02:10
Glucose 112 mg/dl (70-99) H 04/13/25 02:10
Calcium 8.6 mg/dl (8.4-10.2) 04/13/25 02:10
Albumin 4.2 g/dl (3.5-5.0) 03/29/25 08:36
Physical Exam
General: Awake, Alert, Oriented, AOx3, No Distress and Nontoxic
HEENT: EOMI, Anicteric and Facial Symmetry
Respiratory: Normal Excursion, Nonlabored Respirations and Other (decreased BS)
Cardiac: S1/S2 and Regular Rate/Rhythm
Breast: Deferred by me
Abdomen: Soft, Nontender and Nondistended
Musculoskeletal: No Cyanosis and Edema (1+)
Neuro: Nonfocal/Grossly Intact
Psych: Mood/afflect pleasant, Insight/judgement good and Appropriate
Data Reviewed
-
Radiology: Report Reviewed by me and Discussed with Patient
Labs: Labs Reviewed by me, Discussed with Nurse and Discussed with Patient
Assessment/Plan
-
IMP:
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
Severe aortic stenosis
B/L ELAINE (50-69%)
DEENA with CKD 3-baseline cr 1.1-1.4
non gap met acidosis
Acute blood loss Anemia
Thrombocytopenia
Acute postop hypovolemia with subsequent hypervolemia
Acute suspected pericarditis
PVD
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
hx of L retinal artery occlusion
HTN
HLD
Plan:
A/w elective CABG and AVR on 04/11
DEENA -suspect hemodynamic related specially hypotension post op
now that Bps are improving expect to stabilize cr
baseline UA was bland, recheck UA and fena
s/p alb and lasix today, keep coleman for now
also check baseline renal US, no w/u before
monitor mild met acidosis
Bp stable off midodrine, cardene
anemia and low platelets-follow labs
avoid nephrotoxins , cont to hold ACEI, HCTZ
recheck labs later today
d/w pt and nursing
[2025-04-13] MEDS: LASIX 40 MG IV (10:07)
[2025-04-13] MEDS: ROXICODONE 2.5 MG PO (10:14)
--- NOTE | 2025-04-13 12:00 | PTCARENOTE ---
~1100: handoff report received from VANDA Willard. Pt AOx4, OOB in chair at this time with family at bedside. NSR on monitor 60s, + rub noted, SBP 130s on cuff and 160s on R radial Kaley, waveform appropriate. RA satting >90%, lungs diminished in
bases. Flores intact and draining clear yellow urine, I/Os charted. Medial and L/R pleural chest tubes to -20sx, no crepitus or airleak noted at this time, draining serosanguenous drainage I/Os charted. Patient Ax2 to stand from chair with RN and
cardial rehab present, patient ambulated in room from the chair to the door and back, VSS. Sternum covered with aquacel, CDI, R groin puncture site covered with 2x2 and tegaderm, CDI, and R SVG site covered with aquacel with scant old drainage
present. Patient c/o occasional L middle back pain, but does not want pain meds at this time. Discussed with [employer]ER[employer] CONSULTANT plan of care for today, no new orders at this time. All needs met at this time, call mclean within reach.
[2025-04-13 14:37] LABS: Urine Albumin 2+ (Neg - Trace); Urine Bilirubin Negative (Negative); Urine Character Clear (Clear); Urine Color Yellow; Urine Glucose Negative (Negative); Urine Ketone Negative (Negative); Urine Leukocyte 2+ (Negative); Urine Nitrite Negative (Negative); Urine Occult Blood 3+ (Negative); Urine Specific Gravity 1.015 (<1.030); Urine Urobilinogen Negative (Neg - 1+)
[2025-04-13 15:02] LABS: Urine Bacteria Few (Negative)
[2025-04-13 15:06] LABS: Urine Sodium 40 mmol/L (30-90)
--- NOTE | 2025-04-13 16:00 | PTCARENOTE ---
patient OOB in chair, does not complian of pain at this time. Ax1 back to bed, VSS at this time. Per order, all chest tubes and L radial A line d/c'd, patient tolerated well. Currently resting in bed. All needs met at this time, call mclean within
reach.
--- NOTE | 2025-04-13 17:01 | CM ---
Reviewed chart. Prior to admission she resides with her daughter in a two story home with two steps to enter. She has a full flight of steps to get to bedroom/full bathroom. Prior to admission she was independent with ambulation and adls. She has
a prescription plan and uses [facility]. Will need to see her current functional level to see if she will have any skilled care needs. Medical work-up in progress. The discharge plan is to return home with her daughter and a home visit by the
Transitional Care Nurse when medically stable.
[2025-04-13] MEDS: LIPITOR 40 MG PO (17:40)
[2025-04-13 19:03] LABS: Blood Urea Nitrogen 48 mg/dl (7-17); Calcium 8.2 mg/dl (8.4-10.2); Carbon Dioxide 25 mmol/L (22-30); Chloride 103 mmol/L (98-107); Estimated Creatinine Clearance 17 ml/min; Glucose 180 mg/dl (70-99); Potassium 4.4 mmol/L (3.5-5.1); Sodium 134 mmol/L (135-145); eGFR 20.96
--- NOTE | 2025-04-13 19:21 | PTCARENOTE ---
Patient OOB in chair. Minimal appetite remains. Pt denies pain at this time. Flores intact and draining clear yellow urine, I/Os charted. VSS at this time. Handoff report given to nightshift RN.
--- NOTE | 2025-04-13 20:00 | PTCARENOTE ---
Received pt from [facility]. pt is POD 2 from CABGx3, LIZZIE clip, and AVR with Dr. Barrett. pt is resting comfortably in chair with daughter at bedside. pt is oriented x4, denies pain.NSR on monitor. VSS. heart sounds audible, radial and DP pulses
palpable, +1 anasarca, temp epicardial insulated. lungs diminished throughout, spo2 98% on RA, all 4 CTs have been removed by [facility]. hypoactive BSx4 quadrants, abdomen soft non tender, pt has had poor appetite, denies nausea at this time. pt
voiding clear yellow urine via coleman catheter, ongoing low urine output with elevated creatinine. surgical sites maintained. right IJ cordis and PIV all maintained. pt assisted back to bed. call mclean within reach. ongoing monitoring.
[2025-04-13] MEDS: LOPRESSOR PO (20:42)
[2025-04-14] VITALS (26 sets, daily range): BP systolic 90–160; BP diastolic 52–81; PULSE 70; O2SAT 95–98; BMI 24.1
--- NOTE | 2025-04-14 | PTCARENOTE ---
Pt assessment unchanged. NSR on monitor. VSS. 2000 BB held by CV[facility]. pt resting comfortably in bed. call mclean within reach. will continue to monitor.
--- NOTE | 2025-04-14 02:09 | W.PN.CT ---
Addendum entered and electronically signed by Prosper Barrett MD 04/14/25 09:38:
I saw and examined the patient.
The PA's note was reviewed and I agree with the note.
Comment:
No major issues. DEENA stable, creat 2.2 today from 2.3; baseline 1.4. UO ok.
Transfuse 1U PRBC for Hgb 7.5
Diuresis
D/C coleman
Permissive HTN
OOB/IS/ambulate
Original Note:
Today's Communication / Plan
-
Plan:
-No major issues overnight. Hemodynamically and neurologically intact
-Has been hypotensive postop, requiring Midodrine, currently placed on PRN
-Will likely benefit from higher BP to facilitated renal perfusion
-Has postop DEENA on CKD, creatinine 2.2 today, 2.3 yesterday, was 0.9-1.4 preop. Nephrology consulted and following
-Maintain coleman catheter, 24hrs u/o 445 mL
-H/H 7.5/22.4 this AM, likely hemodilutional from volume overload, wt is up 16 lbs from preop if scale is accurate, diuresis per Nephrology
-Renal u/s yesterday 04/13 was unremarkable
-Avoid Nephrotoxic meds
-Lopressor switched to home Toprol XL 12.5 mg BID (with parameters)
-Cont. current meds (ASA, Plavix, Lipitor, Amiodarone, Toprol XL)
-Encourage use of IS
-OOB into chair/Ambulate
Assessment / Plan
-
- Severe symptomatic , mv-CAD - s/p AVR (#21 Inspiris Resilia); CABG x 3 (SALVATORE to LAD, GSV to OM2, GSV to RPDA); ELAA (35mm AtriClip) by Dr. Barrett on 04/11/25, pod #3
- Post-KARLEE: Normal LV; LVEF 60%; mild MR; AV was well-seated w/ no AI/PVL, mean gradient 7mmHg.
- Severe aortic stenosis (P/M: 72/41, FERNY 0.6)
- Moderate eccentric aortic insufficiency
- Flaxhqdf-fz-rbvgtg MR
- Xqel-gu-erhmnnih TR
- Severe TVCAD
- B/L ELAINE (50-69%)
- CKD - stage IIIb (baseline creat 1.2-1.4)
- Anemia (starting Hgb 8.8)
- PVD
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
- Hx of L retinal artery occlusion
- HTN/HLD
- Acute on chronic postop blood loss anemia (Hg 8.8 preop from 11.7)- s/p 3 pRBCs intraop
- Acute postop atelectasis
- Acute postop pulmonary insufficiency
- Acute postop hypovolemia with subsequent hypervolemia
- Acute suspected pericarditis/+ rub
- DEENA on CKD
- Acute postop hyponatremia on preop hyponatremia
Discussed patient care with: Cardiology, Nursing, Respiratory Therapy, Pharmacy and Care Team
Subjective
-
Date of Service: April 14, 2025
c/o mild incisional pain, otherwise feels well
Objective Data
-
PT 19.0 Sec (11.4-14.6) H 04/11/25 14:36
INR 1.54 04/11/25 14:36
APTT 36.2 Sec (23.4-35.0) H 04/11/25 14:36
Vital Signs
Vital Signs
Temp Pulse Resp BP Pulse Ox
98.1 F 61 15 106/56 93
04/14/25 00:00 04/14/25 00:30 04/14/25 00:30 04/14/25 00:00 04/14/25 00:30
CT Intake/Output/Weight
04/13/25 04/13/25 04/14/25
06:59 18:59 06:59
Intake Total 100 / 1360.4 150 / 150
Output Total 290 / 945 390 / 490 100 / 490
Balance -190 / 415.4 -240 / -340 -100 / -340
SaO2: 93 (RA)
Physical Exam
-
General: Awake, Oriented and AOx3
Cardiovascular: Regular rate & rhythm, No Murmurs and No Gallop
Respiratory: Decreased Breath Sounds
Sternum: Stable
Incision: Clean, Dry, Intact and Dressing Intact
Extremities: Other (+trace edema)
Data Reviewed
-
Lab Results: Results Reviewed
Medications: Active Meds Reviewed
Chest X-Ray: Report Reviewed and Image Reviewed
ECG: Report Reviewed and Image Reviewed
--- NOTE | 2025-04-14 04:00 | PTCARENOTE ---
Pt assessment unchanged. NSR on monitor. VSS. pt resting comfortably in bed. labs drawn and sent. call mclean within reach. will continue to monitor.
[2025-04-14 04:10] LABS: Ionized Calcium 1.12 mMOL/L (1.15-1.33)
[2025-04-14 04:23] LABS: Hematocrit 22.4 % (37.0-47.0); Hemoglobin 7.5 g/dL (12.0-16.0); Mean Corp Hgb Conc. 33.5 g/dL (33.0-37.0); Mean Corpuscular Hgb 29.4 pg (27.0-31.0); Mean Corpuscular Volume 87.8 fL (81.0-99.0); Mean Platelet Volume 10.9 fL (7.4-10.4); Platelet Count 107 10^3/uL (130-400); Red Blood Cell Count 2.55 10^6/uL (4.20-5.40); Red Cell Dist. Width 14.9 % (11.5-14.5); White Blood Cell Count 10.9 10^3/uL (4.8-10.8)
[2025-04-14 04:43] LABS: Blood Urea Nitrogen 53 mg/dl (7-17); Calcium 8.1 mg/dl (8.4-10.2); Carbon Dioxide 27 mmol/L (22-30); Chloride 104 mmol/L (98-107); Estimated Creatinine Clearance 18 ml/min; Glucose 119 mg/dl (70-99); Magnesium 2.8 mg/dl (1.6-2.3); Potassium 4.3 mmol/L (3.5-5.1); Sodium 136 mmol/L (135-145); eGFR 22.11
[2025-04-14] MEDS: CALCIUM GLUCONATE 100 IV (06:09)
[2025-04-14] MEDS: TYLENOL 1000 MG PO ×3 (06:09→21:30)
--- NOTE | 2025-04-14 08:32 | W.PN.CD ---
Today's Communication / Plan
-
Diurese. Furosemide 80 mg IV after blood transfusion and monitor.
Avoid nephrotoxins (ACEI/ARB, metformin, etc).
Ambulate.
Incentive spirometry.
Impression / Plan
-
Impression/Plan: 79 y/o female (patient of Dr. Salas) with HTN, HLD, Hx of temporal cerebral art. aneurysm s/p clip, L retinal artery occlusion, severe and CAD admitted for elective CABG/AVR.
#CAD:
-Chronic, progressive.
-s/p CABG x 3- (SALVATORE to LAD, GSV to OM2, GSV to RPDA) with Dr. Barrett, 04/11/25.
-Routine post operative management.
-Ambulate.
-Incentive spirometry.
-Pain/chest tube management per CTS.
-Furosemide 80 mg IV x1 after blood transfusion and monitor UOP. If she does not respond, consider brief run of a bumetanide gtt.
#Severe :
-Chronic, progressive.
-S/P #21 Mcmanus Inspiris Resilia AV with Dr. Barrett, 04/11/2025.
-S/P #35 Atriclip LAAE.
-Post operative management as above.
#DEENA
-Acute.
-Creatinine up to 2.2.
-Clearly not volume depleted.
-FENa = 1.1%.
-Avoid nephrotoxins.
-Diuresis.
#HTN:
-Chronic, stable.
-Restart lisinopril 20 mg daily when BP dictates.
-Avoid midodrine.
#Dyslipidemia:
-Chronic, stable.
-High dose, high potency statin.
Subjective/Interval History:
Metoprolol held this morning.
Chest tubes removed.
Nephrology consulted.
Weight is up an additional 1.3 kg from yesterday.
Intermittent hypotension (86/72 on 04/13/2025 @ 19:00 - accurate?).
Remains on 4LNC.
Renal US normal.
Hbg down to 7.5 <-- 8.5 <-- 9.1.
Platelets 107 <-- 103 <-- 120.
Creatinine 2.2 <-- 2.3 <-- 2.0 <-- 1.8 <-- 1.6 <-- 1.1
Data:
Echo 02/09/25:
CONCLUSIONS
LV ejection fraction is 60-65%. Severe basal inferior hypokinesis/akinesis.
Normal right ventricular size and function.
Moderate to severe mitral regurgitation.
Severe aortic stenosis; peak/mean gradients 72/41 mmHg, calculated FERNY 0.6 cm2.
Moderate, eccentric aortic regurgitation.
Mild to moderate tricuspid regurgitation. Estimated pulmonary artery pressure
of 35-40 mmHg.
Compared to previous echo on 02/17/2024, slightly progressive mitral
regurgitation and aortic regurgitation are noted.
Cardiac Catheterization, 03/21/2025:
CONCLUSIONS:
1. Right dominant circulation with an anterior, slitlike orifice of the RCA at the confluence of the right and left coronary cusps making direct angiography nearly impossible. There is severe, multivessel disease including a 70% lesion of the
proximal RCA culminating in a 90% lesion in the proximal/mid vessel followed by a 70% lesion in the mid/distal vessel as it approaches the crux, a 70% lesion in the ostium of the circumflex followed by a 70% lesion in the mid circumflex and between
OM1 and OM 2, a 70-80% lesion in the ostium/proximal LAD followed by 90%, shelflike plaque in the proximal LAD at the origin of the diagonal and a 70%, densely calcified lesion in the proximal third of the left main coronary artery with catheter
dampening on engagement and occlusive on IVUS (MLA = 4.6 mm�).
2. Moderately elevated filling pressures (PCWP = 21 mmHg at 58.5 kg).
3. Mild, postcapillary pulmonary hypertension (mean PA = 29 mmHg, PCWP = 21 mmHg, CO = 3.69 L/min, PVR = 2.17 Oconnor units), WHO group 2.
4. Severe aortic valve stenosis with moderate aortic valve regurgitation on echocardiography.
CABG/AVR, 04/11/2025:
PROCEDURES:
1. Median sternotomy
2. Takedown of SALVATORE (narrow pedicle)
3. Endoscopic harvest/prep of RLE GSV
4. CABG x 3 (SALVATORE to LAD, GSV to OM2, GSV to RPDA)
5. ELAA (35mm AtriClip)
6. AVR (#21 Inspiris Resilia)
Physical Exam
Vital Signs/Labs
Vital Signs
Temp Pulse Resp BP Pulse Ox
37.1 C 64 13 114/58 96
04/14/25 03:52 04/14/25 05:45 04/14/25 05:45 04/14/25 05:00 04/14/25 05:45
04/12/25 04/13/25 04/14/25
11:59 11:59 11:59
Actual Weight 60.6 kg 62.3 kg 63.6 kg
04/14/25 03:52
04/14/25 03:52
PT 19.0 Sec (11.4-14.6) H 04/11/25 14:36
INR 1.54 04/11/25 14:36
APTT 36.2 Sec (23.4-35.0) H 04/11/25 14:36
Magnesium 2.8 mg/dl (1.6-2.3) H 04/14/25 03:52
Physical Exam
Constitutional: No acute distress and Comfortable
EENT: Anicteric and Moist mucous membranes
Cardiovascular: Rhythm & rate is regular, Pedal edema present, JVD present, S1S2 is normal and Murmur/rub/gallop absent
Respiratory: Respiratory effort normal and Other (Decreased/tubular in bilateral bases.)
GI: Soft, Distention absent, Flat, Non tender and Normal bowel sounds
Neuro/Psych: AO x 3
Data Reviewed
-
Date of Service: April 14, 2025
Medical Decision Making: Reviewed Test Results, Independent Historian Assessment and Test Interpretation
EKG: Tracing Personally Visualized and interpreted and Report Reviewed by me
Echo: Tracing Personally Visualized and interpreted and Report Reviewed by me
X-Ray/CT/US/MRI/NUC/PET: Image Personally Visualized and interpreted and Report Reviewed by me
Medical Tests (PFT, Pathology etc): Image Personally Visualized and interpreted and Report Reviewed by me
Labs: Labs Reviewed by me
Old Records: Reviewed
[2025-04-14] MEDS: NEURONTIN 100 MG PO ×3 (08:44→21:30)
[2025-04-14] MEDS: LASIX 40 MG IV (08:44)
[2025-04-14] MEDS: PROTONIX 40 MG PO (08:44)
[2025-04-14] MEDS: LOW STRENGTH ASPIRIN 81 MG PO (08:45)
[2025-04-14] MEDS: SENOKOT-S 1 TABLET PO ×2 (08:45→19:18)
[2025-04-14] MEDS: LIDOCAINE 4% PATCH 1 PATCH TOPICAL (08:45)
[2025-04-14] MEDS: PLAVIX 75 MG PO (08:45)
[2025-04-14] MEDS: BACTROBAN 2% OINTMENT 1 APPLIC NASAL ×2 (08:45→19:18)
[2025-04-14] MEDS: TOPROL XL 12.5 MG PO (08:45)
[2025-04-14] MEDS: PACERONE 200 MG PO ×3 (08:45→21:30)
--- NOTE | 2025-04-14 08:45 | PTCARENOTE ---
Assumed care of patient at 0700. Pt is awake, alert, and oriented. No complaints of pain at this time. Pt remains SR with HR 60's. BP 156/77 MAP 96. Pulse oximetry 95% on room air. Pt tolerating PO diet, however appetite overall poor. Flores catheter
remains in place draining yellow urine. Flores care completed. Midsternal incision post-op dressing in place. Right groin puncture with dressing intact. Right leg incision dressings intact. Right IJ cordis in place with KVO. Pt currently OOB in chair
with call mclean within reach.
--- NOTE | 2025-04-14 09:45 | PTCARENOTE ---
Pt ambulated with cardiac rehab without issue. 0940 pt converted to Afib, HR 122. BP 97/58 MAP 69. Pulse oximetry 95% on room air.
[2025-04-14] MEDS: LOPRESSOR 5 MG IV (12:08)
[2025-04-14] MEDS: LASIX 80 MG IV (13:16)
[2025-04-14] MEDS: CORDARONE 103 MG IV (13:17)
--- NOTE | 2025-04-14 14:00 | PTCARENOTE ---
Pt remains Afib, 5mg IV Lopressor administered. Pt received 1 unit PRBC followed by 80mg IV Lasix. Amio bolus administered per order. Flores d/c'd, and pt was able to void.
--- NOTE | 2025-04-14 14:08 | W.PN.NEPH.PH ---
Today's Communication / Plan
-
follow labs
Assessment/Plan
-
IMP:
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
Severe aortic stenosis
B/L ELAINE (50-69%)
DEENA with CKD 3-baseline cr 1.1-1.4
non gap met acidosis
Acute blood loss Anemia
Thrombocytopenia
Acute postop hypovolemia with subsequent hypervolemia
Acute suspected pericarditis
PVD
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
hx of L retinal artery occlusion
HTN
HLD
Plan:
A/w elective CABG and AVR on 04/11
DEENA -suspect hemodynamic related specially hypotension post op
cr is likely reached pean and now slightly better this am at 2.2
UOP improving , off coleman today
baseline UA was bland, recheck UA bacteruria
renal US non acute however right small kidney-need f/u out pt
monitor mild met acidosis-improved
Bp soft end
s/p PRBC today for low hb , lasix dosing per cards
anemia and low platelets-follow labs
avoid nephrotoxins , cont to hold ACEI, HCTZ
d/w pt
-
-
Date of Service: April 14, 2025
CC / HPI / ROS
-
Chief Complaint:
DEENA
History of Present Illness:
cr slightly better at 2.2 pea 2.3
UOP improving , off coleman this am
BP remains soft
hb low 7.5, plt 107
wt increasing
Review of Systems:
no cp or sob at rest
no dizziness
Labs
-
Labs:
WBC 10.9 10^3/uL (4.8-10.8) H 04/14/25 03:52
RBC 2.55 10^6/uL (4.20-5.40) L 04/14/25 03:52
Hgb 7.5 g/dL (12.0-16.0) L 04/14/25 03:52
Hct 22.4 % (37.0-47.0) L 04/14/25 03:52
Plt Count 107 10^3/uL (130-400) L 04/14/25 03:52
Sodium 136 mmol/L (135-145) 04/14/25 03:52
Potassium 4.3 mmol/L (3.5-5.1) 04/14/25 03:52
Chloride 104 mmol/L (98-107) 04/14/25 03:52
Carbon Dioxide 27 mmol/L (22-30) 04/14/25 03:52
BUN 53 mg/dl (7-17) H 04/14/25 03:52
Creatinine 2.2 mg/dL (0.6-1.0) H 04/14/25 03:52
eGFR 22.11 04/14/25 03:52
Glucose 119 mg/dl (70-99) H 04/14/25 03:52
Calcium 8.1 mg/dl (8.4-10.2) L 04/14/25 03:52
Albumin 4.2 g/dl (3.5-5.0) 03/29/25 08:36
Physical Exam
-
Vital Signs:
Vital Signs
Temp Pulse Resp BP Pulse Ox
98.6 F 85 18 95/64 97
04/14/25 08:54 04/14/25 13:15 04/14/25 12:00 04/14/25 13:00 04/14/25 12:00
Cardiovascular:: Regular rate and rhythm
Respiratory:: Bilateral: CTA (decreased)
Lung Excursion:: Normal
Abdomen:: Nontender and Soft
Extremity Edema:: +2: Bilateral:
Coleman Catheter: No
[2025-04-14] MEDS: NSS IV (14:10)
--- NOTE | 2025-04-14 20:00 | PTCARENOTE ---
Received pt from [facility]. pt is POD 3 from CABGx3, LIZZIE clip, and AVR with Dr. Barrett. pt is resting comfortably in chair with daughter at bedside. pt is oriented x4, denies pain.NSR on monitor. VSS. heart sounds audible, radial and DP pulses
palpable, +1 anasarca, +2 NANNETTE edema, temp epicardial insulated. lungs clear anteriorly, crackles noted at b/l bases. spo2 98% on RA. + BSx4 quadrants, abdomen soft non tender, pt continues to have poor appetite, denies nausea at this time,
complains of mild gas pain. Pt's coleman catheter removed by cadence, pt is voiding clear yellow urine without difficulty. surgical sites maintained. right IJ cordis and PIV all maintained. pt assisted back to bed. CHG bath provided, new leads, gown,
and socks provided. call mclean within reach. ongoing monitoring.
[2025-04-14] MEDS: MYLICON 80 MG PO (21:30)
[2025-04-14] MEDS: KCL 20 MEQ PO (21:30)
[2025-04-15] VITALS (11 sets, daily range): BP systolic 116–145; BP diastolic 60–76; PULSE 71–72; O2SAT 96; BMI 24.0
--- NOTE | 2025-04-15 01:10 | PTCARENOTE ---
Assumed care of pt. Report from RAY Latif. VS done. See flowsheet. Pt assessed. Pt awake, alert, oriented x 4. Speech clear. Generally weak yet equal strength x 4. Pt on room air. Sat 97%. BBS present. Decreased B bases. CDB and IS encouraged.
Audible heart tones. Pt in SR. Normotensive. Palpable +2 radial pulses. B DP and PT pulses found via doppler. +2 BLE edema. +1 anasarca edema. V wire insulated to chest. Temporary PM box at bedside. Sternal aquacel clear, dry, intact. Former CT
dressing clear, dry, intact. R groin puncture site with sterile 2x2 and tegaderm, bruised, dry and intact. Medial R kinee incisions with aquacel dressing, clear, dry, intact. Belly soft, nontender. Normoactive bs x 4. Reports passing flatus. Denies
gas pain. Ongoing plan of care. Pt repositioned onto R side with pillow per request.
--- NOTE | 2025-04-15 03:28 | W.PN.CT ---
Addendum entered and electronically signed by Prosper Barrett MD 04/15/25 09:13:
I saw and examined the patient.
The PA's note was reviewed and I agree with the note.
Comment:
Creat improved. Diuresis again today
AF briefly yesterday - in sinus.
OOB/IS/ambulate
Hgb 9.1 s/p 1U PRBC this AM
D/C planning for 1-2 days
Original Note:
Today's Communication / Plan
-
Plan:
-No major issues overnight. Hemodynamically and neurologically intact
-Had 2hrs of a-fib with RVR yesterday 04/14, responded to IV lopressor and Amiodarone bolus. No further a-fib since
-Has been hypotensive postop, requiring Midodrine, currently placed on PRN
-Will likely benefit from higher BP to facilitated renal perfusion
-Has postop DEENA on CKD, creatinine 1.6 today, 2.2 yesterday, was 0.9-1.4 preop. Nephrology consulted and following
-Coleman was d/c'd yesterday 04/14, voiding spontaneously following coleman removal
-Received 1u PRBC for H/H 7.5/22.4 yesterday 04/14, h/h 9.1/26.5 this AM, wt is up 16 lbs from preop if scale is accurate, cont. diuresis
-Renal u/s on 04/13 was unremarkable
-Avoid Nephrotoxic meds
-Lopressor switched to home Toprol XL 12.5 mg BID (with parameters)
-Cont. current meds (ASA, Plavix, Lipitor, Amiodarone, Toprol XL)
-Encourage use of IS
-OOB into chair/Ambulate
Assessment / Plan
-
- Severe symptomatic , mv-CAD - s/p AVR (#21 Inspiris Resilia); CABG x 3 (SALVATORE to LAD, GSV to OM2, GSV to RPDA); ELAA (35mm AtriClip) by Dr. Barrett on 04/11/25, pod #4
- Post-KARLEE: Normal LV; LVEF 60%; mild MR; AV was well-seated w/ no AI/PVL, mean gradient 7mmHg.
- Severe aortic stenosis (P/M: 72/41, FERNY 0.6)
- Moderate eccentric aortic insufficiency
- Czrxykhp-tp-fknqud MR
- Ncth-iv-zfqdwkvz TR
- Severe TVCAD
- B/L ELAINE (50-69%)
- CKD - stage IIIb (baseline creat 1.2-1.4)
- Anemia (starting Hgb 8.8)
- PVD
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
- Hx of L retinal artery occlusion
- HTN/HLD
- Acute on chronic postop blood loss anemia (Hg 8.8 preop from 11.7)- s/p 3 pRBCs intraop
- Acute postop atelectasis
- Acute postop pulmonary insufficiency
- Acute postop hypovolemia with subsequent hypervolemia
- Acute suspected pericarditis/+ rub
- DEENA on CKD
- Acute postop hyponatremia on preop hyponatremia
Discussed patient care with: Cardiology, Nursing, Respiratory Therapy, Pharmacy and Care Team
Subjective
-
Date of Service: April 15, 2025
C/o mild incisional pain, otherwise feels well
Objective Data
-
PT 19.0 Sec (11.4-14.6) H 04/11/25 14:36
INR 1.54 04/11/25 14:36
APTT 36.2 Sec (23.4-35.0) H 04/11/25 14:36
Vital Signs
Vital Signs
Temp Pulse Resp BP Pulse Ox
98.1 F 68 15 129/68 97
04/15/25 01:05 04/15/25 01:05 04/15/25 01:05 04/15/25 01:05 04/15/25 02:28
CT Intake/Output/Weight
04/14/25 04/14/25 04/15/25
06:59 18:59 06:59
Intake Total 460 / 460
Output Total 240 / 670 1345 / 1345
Balance -240 / -510 -885 / -885
SaO2: 97 (RA)
Physical Exam
-
General: Awake, Oriented and AOx3
Cardiovascular: Regular rate & rhythm, No Murmurs and No Rub
Respiratory: Decreased Breath Sounds (at bases, otherwise clear)
Sternum: Stable
Incision: Clean, Dry, Intact and Dressing Intact
Extremities: Other (+trace edema )
Data Reviewed
-
Lab Results: Results Reviewed
Medications: Active Meds Reviewed
Chest X-Ray: Report Reviewed and Image Reviewed
ECG: Report Reviewed and Image Reviewed
[2025-04-15] MEDS: TYLENOL 1000 MG PO ×3 (06:05→23:05)
[2025-04-15 06:20] LABS: Ionized Calcium 1.13 mMOL/L (1.15-1.33)
[2025-04-15 06:25] LABS: Hematocrit 26.5 % (37.0-47.0); Hemoglobin 9.1 g/dL (12.0-16.0); Mean Corp Hgb Conc. 34.3 g/dL (33.0-37.0); Mean Corpuscular Hgb 29.6 pg (27.0-31.0); Mean Corpuscular Volume 86.3 fL (81.0-99.0); Mean Platelet Volume 10.7 fL (7.4-10.4); Platelet Count 117 10^3/uL (130-400); Red Blood Cell Count 3.07 10^6/uL (4.20-5.40); Red Cell Dist. Width 14.6 % (11.5-14.5); White Blood Cell Count 8.4 10^3/uL (4.8-10.8)
--- NOTE | 2025-04-15 06:27 | PTCARENOTE ---
VS done. Labs drawn and sent. Pt helped to BR to void clear,, yellow urine. Pt helped to standing scale, then to recliner chair.
[2025-04-15 06:47] LABS: Blood Urea Nitrogen 51 mg/dl (7-17); Carbon Dioxide 28 mmol/L (22-30); Chloride 102 mmol/L (98-107); Estimated Creatinine Clearance 24 ml/min; Glucose 102 mg/dl (70-99); Magnesium 2.3 mg/dl (1.6-2.3); Sodium 132 mmol/L (135-145)
[2025-04-15] MEDS: PROTONIX 40 MG PO (08:31)
[2025-04-15] MEDS: PACERONE 200 MG PO ×3 (08:31→23:05)
[2025-04-15] MEDS: BACTROBAN 2% OINTMENT 1 APPLIC NASAL (08:31)
[2025-04-15] MEDS: LOW STRENGTH ASPIRIN 81 MG PO (08:31)
[2025-04-15] MEDS: TOPROL XL 50 MG PO (08:31)
[2025-04-15] MEDS: PLAVIX 75 MG PO (08:31)
[2025-04-15] MEDS: NEURONTIN 100 MG PO ×3 (08:31→23:05)
[2025-04-15] MEDS: SENOKOT-S 1 TABLET PO ×2 (08:31→20:32)
[2025-04-15] MEDS: LIDOCAINE 4% PATCH TOPICAL ×2 (08:31→08:39)
--- NOTE | 2025-04-15 08:45 | PTCARENOTE ---
Assumed care of patient at 0700. Pt is awake, alert, and oriented. No complaints of pain at this time. Pt remains SR with HR 65. BP 122/60 MAP 78. Epicardial V wire insulated. Pulse oximetry 97% on room air. Pt tolerating PO diet. Voiding without
difficulty. Midsternal incision with post-op dressing in place. Right leg incision post-op dressing intact. Right groin puncture dressing intact. Right IJ cordis in place with KVO. Pt currently OOB in chair with call mclean within reach.
[2025-04-15] MEDS: LASIX 40 MG IV ×2 (09:20→16:34)
--- NOTE | 2025-04-15 10:24 | W.PN.CD ---
Today's Communication / Plan
-
.
PAF - breif. Back in NSR
- continue beta blcoker and montior for recurrence
HB improved post PRBC. Monitor
DEENA improving and cr 1.6. Monitor
Impression / Plan
-
Impression/Plan: 79 y/o female (patient of Dr. Salas) with HTN, HLD, Hx of temporal cerebral art. aneurysm s/p clip, L retinal artery occlusion, severe and CAD admitted for elective CABG/AVR.
#CAD:
-Chronic, progressive.
-s/p CABG x 3- (SALVATORE to LAD, GSV to OM2, GSV to RPDA) with Dr. Barrett, 04/11/25.
-post of pain appropriate
- sitting in chair and feels better than yesterday
# Post op AVR for severe
-S/P #21 Mcmanus Inspiris Resilia AV with Dr. Barrett, 04/11/2025.
-S/P #35 Atriclip LAAE.
-Post operative management as above.
# PAF - 2 hours
- continue BB
- monitor for recurrence
- if recurrence then give additonal amio
#DEENA
-Acute.
-Creatinine 2.2 down to 1.6
-monitor
# post op anemia - improvement after PRBC
#HTN:
-Chronic, stable.
-Restart lisinopril when renal function and BP will allow
#Dyslipidemia:
-High dose, high potency statin.
Subjective/Interval History:
Metoprolol held this morning.
Chest tubes removed.
Nephrology consulted.
Weight is up an additional 1.3 kg from yesterday.
Intermittent hypotension (86/72 on 04/13/2025 @ 19:00 - accurate?).
Remains on 4LNC.
Renal US normal.
Hbg down to 7.5 <-- 8.5 <-- 9.1.
Platelets 107 <-- 103 <-- 120.
Creatinine 2.2 <-- 2.3 <-- 2.0 <-- 1.8 <-- 1.6 <-- 1.1
Data:
Echo 02/09/25:
CONCLUSIONS
LV ejection fraction is 60-65%. Severe basal inferior hypokinesis/akinesis.
Normal right ventricular size and function.
Moderate to severe mitral regurgitation.
Severe aortic stenosis; peak/mean gradients 72/41 mmHg, calculated FERNY 0.6 cm2.
Moderate, eccentric aortic regurgitation.
Mild to moderate tricuspid regurgitation. Estimated pulmonary artery pressure
of 35-40 mmHg.
Compared to previous echo on 02/17/2024, slightly progressive mitral
regurgitation and aortic regurgitation are noted.
Cardiac Catheterization, 03/21/2025:
CONCLUSIONS:
1. Right dominant circulation with an anterior, slitlike orifice of the RCA at the confluence of the right and left coronary cusps making direct angiography nearly impossible. There is severe, multivessel disease including a 70% lesion of the
proximal RCA culminating in a 90% lesion in the proximal/mid vessel followed by a 70% lesion in the mid/distal vessel as it approaches the crux, a 70% lesion in the ostium of the circumflex followed by a 70% lesion in the mid circumflex and between
OM1 and OM 2, a 70-80% lesion in the ostium/proximal LAD followed by 90%, shelflike plaque in the proximal LAD at the origin of the diagonal and a 70%, densely calcified lesion in the proximal third of the left main coronary artery with catheter
dampening on engagement and occlusive on IVUS (MLA = 4.6 mm�).
2. Moderately elevated filling pressures (PCWP = 21 mmHg at 58.5 kg).
3. Mild, postcapillary pulmonary hypertension (mean PA = 29 mmHg, PCWP = 21 mmHg, CO = 3.69 L/min, PVR = 2.17 Oconnor units), WHO group 2.
4. Severe aortic valve stenosis with moderate aortic valve regurgitation on echocardiography.
CABG/AVR, 04/11/2025:
PROCEDURES:
1. Median sternotomy
2. Takedown of SALVATORE (narrow pedicle)
3. Endoscopic harvest/prep of RLE GSV
4. CABG x 3 (SALVATORE to LAD, GSV to OM2, GSV to RPDA)
5. ELAA (35mm AtriClip)
6. AVR (#21 Inspiris Resilia)
Physical Exam
Vital Signs/Labs
Vital Signs
Temp Pulse Resp BP Pulse Ox
98.8 F 65 18 122/60 97
04/15/25 08:30 04/15/25 08:30 04/15/25 08:30 04/15/25 07:32 04/15/25 08:30
04/14/25 04/15/25 04/16/25
06:59 06:59 06:59
Actual Weight 63.6 kg 63.5 kg
04/15/25 05:56
04/15/25 05:56
PT 19.0 Sec (11.4-14.6) H 04/11/25 14:36
INR 1.54 04/11/25 14:36
APTT 36.2 Sec (23.4-35.0) H 04/11/25 14:36
Magnesium 2.3 mg/dl (1.6-2.3) 04/15/25 05:56
Physical Exam
Constitutional: No acute distress
Cardiovascular: Rhythm & rate is regular
Respiratory: Wheeze Absent and Other (decreased at bases )
GI: Soft
Other: Other (mild edema bilat)
Data Reviewed
-
Date of Service: April 15, 2025
Medical Decision Making: Reviewed Test Results
EKG: Other (tele- NSR)
Echo: Report Reviewed by me
Medical Tests (PFT, Pathology etc): Report Reviewed by me
Labs: Labs Reviewed by me
--- NOTE | 2025-04-15 11:07 | W.PN.NEPH.PH ---
Today's Communication / Plan
-
cont lasix 'follow labs
Assessment/Plan
-
IMP:
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
Severe aortic stenosis
B/L ELAINE (50-69%)
DEENA with CKD 3-baseline cr 1.1-1.4
non gap met acidosis
Acute blood loss Anemia
Thrombocytopenia
Acute postop hypovolemia with subsequent hypervolemia
Acute suspected pericarditis
PVD
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
hx of L retinal artery occlusion
HTN
HLD
Plan:
A/w elective CABG and AVR on 04/11
DEENA -suspect hemodynamic related specially hypotension post op
cr is likely reached pean and now slightly better this am at 1.6, non oliguric
baseline UA was bland, recheck UA with bacteruria -coleman sample
renal US non acute however right small kidney-need f/u out pt
mild hypoantremia-cont lasix and FR
Bp stable
h/h better lasix per primary
avoid nephrotoxins , cont to hold ACEI, HCTZ
d/w pt and daughter
-
-
Date of Service: April 15, 2025
CC / HPI / ROS
-
Chief Complaint:
DEENA
History of Present Illness:
cr slightly better at 1.6 pea 2.3
UOP non oliguric
BP better
hb better at 9.1 post prbc , plt 117-better
wt no change
Review of Systems:
no cp or sob at rest
no dizziness
Labs
-
Labs:
WBC 8.4 10^3/uL (4.8-10.8) 04/15/25 05:56
RBC 3.07 10^6/uL (4.20-5.40) L 04/15/25 05:56
Hgb 9.1 g/dL (12.0-16.0) L D 04/15/25 05:56
Hct 26.5 % (37.0-47.0) L 04/15/25 05:56
Plt Count 117 10^3/uL (130-400) L 04/15/25 05:56
Sodium 132 mmol/L (135-145) L 04/15/25 05:56
Potassium 4.0 mmol/L (3.5-5.1) 04/15/25 05:56
Chloride 102 mmol/L (98-107) 04/15/25 05:56
Carbon Dioxide 28 mmol/L (22-30) 04/15/25 05:56
BUN 51 mg/dl (7-17) H 04/15/25 05:56
Creatinine 1.6 mg/dL (0.6-1.0) H 04/15/25 05:56
eGFR 32.40 04/15/25 05:56
Glucose 102 mg/dl (70-99) H 04/15/25 05:56
Calcium 8.0 mg/dl (8.4-10.2) L 04/15/25 05:56
Albumin 4.2 g/dl (3.5-5.0) 03/29/25 08:36
Physical Exam
-
Vital Signs:
Vital Signs
Temp Pulse Resp BP Pulse Ox
98.8 F 66 18 122/60 97
04/15/25 08:30 04/15/25 11:00 04/15/25 08:30 04/15/25 07:32 04/15/25 08:30
Cardiovascular:: Regular rate and rhythm
Respiratory:: Bilateral: CTA (decreased)
Lung Excursion:: Normal
Abdomen:: Nontender and Soft
Extremity Edema:: +2: Bilateral:
Coleman Catheter: No
--- NOTE | 2025-04-15 12:30 | PTCARENOTE ---
Pt ambulated in hallway with RN without issue. Tolerated working with PT/OT. Pt remains SR with HR 70. BP 131/76 MAP 89. Pulse oximetry 96% on room air. Temporary epicardial wire cut by CT ROB Jenn. Apryl esteban/c'carlito.
[2025-04-15] MEDS: NSS IV (13:48)
[2025-04-15] MEDS: LIPITOR 40 MG PO (16:33)
--- NOTE | 2025-04-15 16:44 | PTCARENOTE ---
No changes in assessment. Pt remains SR, HR 60's-70's. BP 120/68 MAP 82. Pulse oximetry 98% on room air. Pt tolerating ambulating in hallway with minimal assistance. Pt currently OOB in chair with family at bedside.
[2025-04-15] MEDS: CALCIUM GLUCONATE 100 IV (20:33)
[2025-04-15] MEDS: KCL 20 MEQ PO (20:33)
--- NOTE | 2025-04-15 20:40 | PTCARENOTE ---
Report received from VANDA Nielsen. Walking rounds done. Pt awake, alert, oriented x 4. Speech clear. Equal strength x 4 extremities. Pt on room air. Sats 96%. BBS present. Decreased to bases. CDB and IS encouraged. Audible heart tones. Pt in SR.
Normotensive. For pulse and wound assessments, see flowsheet. Belly soft, nontender. Normoactive bs x 4. BM today. Reports passing flatus. Voids clear, yellow urine in toilet. Repositioned in bed. KCL 20 meQ po and Ca Gluconate 2 GM IV given per
order. New #22g IV placed to RAC due to R hand IV leaking. Daughter at bedside. Ongoing plan of care.
--- NOTE | 2025-04-15 23:30 | PTCARENOTE ---
Pt helped to BR to void clear, yellow urine. Helped back to bed. CHG bath done, face washed. Scheduled meds given. VS done. Pt attempting to go to sleep.
--- NOTE | 2025-04-16 03:29 | W.PN.CT ---
Addendum entered and electronically signed by Prosper Barrett MD 04/16/25 09:17:
I saw and examined the patient.
The PA's note was reviewed and I agree with the note.
Comment:
POD#5
Doing well
Creat to baseline - urinating w/o coleman
Hgb 9.5 (stable)
OOB/IS/ambulate
Home today
Original Note:
Today's Communication / Plan
-
Plan:
-No major issues overnight. Hemodynamically and neurologically intact
-Had 2hrs of a-fib with RVR on 04/14, responded to IV lopressor and Amiodarone bolus. No further a-fib since
-Has been hypotensive postop, requiring Midodrine, currently placed on PRN
-Will likely benefit from higher BP to facilitated renal perfusion
-Has postop DEENA on CKD, creatinine 1.4 (baseline) today, was 1.6 yesterday, was 0.9-1.4 preop. Nephrology consulted and following
-Coleman was d/c'd 04/14, voiding spontaneously following coleman removal
-Received 1u PRBC for H/H 7.5/22.4 on 04/14, h/h 9.5/27.7 this AM, check wt today cont. diuresis
-Renal u/s on 04/13 was unremarkable
-Avoid Nephrotoxic meds
-Monitor hyponatremia, 132
-Lopressor switched to home Toprol XL
-Cont. current meds (ASA, Plavix, Lipitor, Amiodarone, Toprol XL)
-Encourage use of IS
-OOB into chair/Ambulate
-Home today vs tomorrow (wants to stay another day)
Assessment / Plan
-
- Severe symptomatic , mv-CAD - s/p AVR (#21 Inspiris Resilia); CABG x 3 (SALVATORE to LAD, GSV to OM2, GSV to RPDA); ELAA (35mm AtriClip) by Dr. Barrett on 04/11/25, pod #5
- Post-KARLEE: Normal LV; LVEF 60%; mild MR; AV was well-seated w/ no AI/PVL, mean gradient 7mmHg.
- Severe aortic stenosis (P/M: 72/41, FERNY 0.6)
- Moderate eccentric aortic insufficiency
- Xlsmdbtt-ry-eqphtg MR
- Nvsz-td-iqavqqbd TR
- Severe TVCAD
- B/L ELAINE (50-69%)
- CKD - stage IIIb (baseline creat 1.2-1.4)
- Anemia (starting Hgb 8.8)
- PVD
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
- Hx of L retinal artery occlusion
- HTN/HLD
- Acute on chronic postop blood loss anemia (Hg 8.8 preop from 11.7)- s/p 3 pRBCs intraop
- Acute postop atelectasis
- Acute postop pulmonary insufficiency
- Acute postop hypovolemia with subsequent hypervolemia
- Acute suspected pericarditis/+ rub
- DEENA on CKD
- Acute postop hyponatremia on preop hyponatremia
Discussed patient care with: Cardiology, Nursing, Respiratory Therapy, Pharmacy and Care Team
Subjective
-
Date of Service: April 16, 2025
Pt c/o mild incisional pain, otherwise feels well
Objective Data
-
PT 19.0 Sec (11.4-14.6) H 04/11/25 14:36
INR 1.54 04/11/25 14:36
APTT 36.2 Sec (23.4-35.0) H 04/11/25 14:36
Vital Signs
Vital Signs
Temp Pulse Resp BP Pulse Ox
98.3 F 62 16 145/68 96
04/15/25 23:02 04/16/25 01:00 04/15/25 23:02 04/15/25 23:05 04/16/25 01:12
CT Intake/Output/Weight
04/15/25 04/15/25 04/16/25
06:59 18:59 06:59
Intake Total 40 / 140 100 / 140
Output Total 900 / 1550 650 / 1550
Balance -860 / -1410 -550 / -1410
SaO2: 96 (RA)
Physical Exam
-
General: Awake, Oriented and AOx3
Cardiovascular: Regular rate & rhythm, No Murmurs, No Rub and No Gallop
Respiratory: Decreased Breath Sounds (at bases, otherwise clear)
Sternum: Stable
Incision: Clean, Dry, Intact and Dressing Intact
Extremities: Other (+trace edema)
Data Reviewed
-
Lab Results: Results Reviewed
Medications: Active Meds Reviewed
Chest X-Ray: Report Reviewed and Image Reviewed
ECG: Report Reviewed and Image Reviewed
--- NOTE | 2025-04-16 04:30 | PTCARENOTE ---
Labs drawn and sent. VS done. Pt remains in SR. O2 sats on room air are 95-96%. Pt attempting to go back to sleep.
[2025-04-16 04:47] VITALS: BP 133/57
[2025-04-16 05:13] LABS: Hematocrit 27.7 % (37.0-47.0); Hemoglobin 9.5 g/dL (12.0-16.0); Mean Corp Hgb Conc. 34.3 g/dL (33.0-37.0); Mean Corpuscular Hgb 29.3 pg (27.0-31.0); Mean Corpuscular Volume 85.5 fL (81.0-99.0); Mean Platelet Volume 10.2 fL (7.4-10.4); Platelet Count 141 10^3/uL (130-400); Red Blood Cell Count 3.24 10^6/uL (4.20-5.40); Red Cell Dist. Width 14.2 % (11.5-14.5); White Blood Cell Count 7.8 10^3/uL (4.8-10.8)
[2025-04-16 05:36] LABS: Blood Urea Nitrogen 47 mg/dl (7-17); Calcium 8.8 mg/dl (8.4-10.2); Carbon Dioxide 30 mmol/L (22-30); Chloride 99 mmol/L (98-107); Estimated Creatinine Clearance 28 ml/min; Glucose 102 mg/dl (70-99); Magnesium 2.1 mg/dl (1.6-2.3); Potassium 4.2 mmol/L (3.5-5.1); Sodium 132 mmol/L (135-145); eGFR 38.03
[2025-04-16 06:00] VITALS: BMI 23.3
[2025-04-16] MEDS: TYLENOL 1000 MG PO (06:13)
--- NOTE | 2025-04-16 08:19 | W.PN.CD ---
Today's Communication / Plan
-
- Stable for discharge.
Impression / Plan
-
Impression/Plan: 79 y/o female (patient of Dr. Salas) with HTN, HLD, Hx of temporal cerebral art. aneurysm s/p clip, L retinal artery occlusion, severe and CAD admitted for elective CABG/AVR.
#CAD:
-Chronic, progressive.
-s/p CABG x 3- (SALVATORE to LAD, GSV to OM2, GSV to RPDA) with Dr. Barrett, 04/11/25.
-post of pain appropriate
- sitting in chair and feels better
# Post op AVR for severe
-S/P #21 [place] Inspiris Resilia AV with Dr. Barrett, 04/11/2025.
-S/P #35 Atriclip LAAE.
-Post operative management as above.
# PAF - 2 hours
- continue BB
- monitor for recurrence
- if recurrence then give additonal amio
#DEENA
-Acute.
-Creatinine 2.2 down to 1.6
-monitor
# post op anemia - improvement after PRBC
#HTN:
-Chronic, stable.
-Restart lisinopril when renal function and BP will allow
#Dyslipidemia:
-High dose, high potency statin.
Subjective/Interval History:
Postop day 5. Doing well. Out of the bed and ambulating.
Intermittent hypotension (86/72 on 04/13/2025 @ 19:00 - accurate?).
Renal US normal.
Hbg improved to 9.5 today.
Data:
Echo 02/09/25:
CONCLUSIONS
LV ejection fraction is 60-65%. Severe basal inferior hypokinesis/akinesis.
Normal right ventricular size and function.
Moderate to severe mitral regurgitation.
Severe aortic stenosis; peak/mean gradients 72/41 mmHg, calculated FERNY 0.6 cm2.
Moderate, eccentric aortic regurgitation.
Mild to moderate tricuspid regurgitation. Estimated pulmonary artery pressure
of 35-40 mmHg.
Compared to previous echo on 02/17/2024, slightly progressive mitral
regurgitation and aortic regurgitation are noted.
Cardiac Catheterization, 03/21/2025:
CONCLUSIONS:
1. Right dominant circulation with an anterior, slitlike orifice of the RCA at the confluence of the right and left coronary cusps making direct angiography nearly impossible. There is severe, multivessel disease including a 70% lesion of the
proximal RCA culminating in a 90% lesion in the proximal/mid vessel followed by a 70% lesion in the mid/distal vessel as it approaches the crux, a 70% lesion in the ostium of the circumflex followed by a 70% lesion in the mid circumflex and between
OM1 and OM 2, a 70-80% lesion in the ostium/proximal LAD followed by 90%, shelflike plaque in the proximal LAD at the origin of the diagonal and a 70%, densely calcified lesion in the proximal third of the left main coronary artery with catheter
dampening on engagement and occlusive on IVUS (MLA = 4.6 mm�).
2. Moderately elevated filling pressures (PCWP = 21 mmHg at 58.5 kg).
3. Mild, postcapillary pulmonary hypertension (mean PA = 29 mmHg, PCWP = 21 mmHg, CO = 3.69 L/min, PVR = 2.17 [place] units), WHO group 2.
4. Severe aortic valve stenosis with moderate aortic valve regurgitation on echocardiography.
CABG/AVR, 04/11/2025:
PROCEDURES:
1. Median sternotomy
2. Takedown of SALVATORE (narrow pedicle)
3. Endoscopic harvest/prep of RLE GSV
4. CABG x 3 (SALVATORE to LAD, GSV to OM2, GSV to RPDA)
5. ELAA (35mm AtriClip)
6. AVR (#21 Inspiris Resilia)
Physical Exam
Vital Signs/Labs
Vital Signs
Temp Pulse Resp BP Pulse Ox
98.1 F 64 14 133/57 95
04/16/25 04:47 04/16/25 04:47 04/16/25 04:47 04/16/25 04:47 04/16/25 04:47
04/15/25 04/16/25 04/17/25
06:59 06:59 06:59
Actual Weight 63.5 kg 61.6 kg
04/16/25 04:58
04/16/25 04:58
PT 19.0 Sec (11.4-14.6) H 04/11/25 14:36
INR 1.54 04/11/25 14:36
APTT 36.2 Sec (23.4-35.0) H 04/11/25 14:36
Magnesium 2.1 mg/dl (1.6-2.3) 04/16/25 04:58
Physical Exam
Constitutional: No acute distress and Comfortable
EENT: Anicteric and Moist mucous membranes
Cardiovascular: Rhythm & rate is regular and Pedal edema is absent
Respiratory: Respiratory effort normal and Lungs clear to auscul.
GI: Soft, Non tender and Normal bowel sounds
Neuro/Psych: Alert, Oriented and AO x 3
Data Reviewed
-
Date of Service: April 16, 2025
Medical Decision Making: Reviewed Test Results, Test Interpretation and Review of Case with other Provider
EKG: Tracing Personally Visualized and interpreted
Echo: Tracing Personally Visualized and interpreted
Labs: Labs Reviewed by me
Old Records: Reviewed
[2025-04-16 09:13] VITALS: BP 134/62
[2025-04-16] MEDS: PROTONIX 40 MG PO (09:14)
[2025-04-16] MEDS: MAGNESIUM OXIDE 500 MG PO (09:14)
[2025-04-16] MEDS: NEURONTIN 100 MG PO (09:15)
[2025-04-16] MEDS: LOW STRENGTH ASPIRIN 81 MG PO (09:15)
[2025-04-16] MEDS: LIDOCAINE 4% PATCH TOPICAL (09:15)
[2025-04-16] MEDS: TOPROL XL 50 MG PO (09:15)
[2025-04-16] MEDS: NSS IV (09:15)
[2025-04-16] MEDS: PACERONE 200 MG PO (09:15)
[2025-04-16] MEDS: SENOKOT-S 1 TABLET PO (09:15)
[2025-04-16] MEDS: PLAVIX 75 MG PO (09:21)
[2025-04-16 09:54] VITALS: BP 132/55
--- NOTE | 2025-04-16 10:14 | W.DCSUMMARY ---
Discharge Summary
Discharge Data
Date of Admission: 04/11/25
Date of Discharge: 04/16/25
-
Pending Results: No
Hospital Course
Primary care physician: Joel Jennings
Outpatient cooling machine operator: Rasheed Salas
Inpatient consultants: [facility] Card[facility], pulmonary examination grader, nephrology, physical/occupational therapy
Procedures:
1. AVR, CABG, Left atrial appendage clip
Primary Diagnosis:
1. Severe aortic stenosis
Secondary Diagnoses:
1. Moderate eccentric aortic insufficiency
2. Ytwvyptd-lp-eiqmhq MR
3. Byhm-rm-mvksyxih TR
4. Severe triple vessel CAD
5. B/L carotid artery stenosis (50-69%)
6. DEENA (cardio-renal) on CKD - stage III (baseline creat 1.2-1.4)
7. Anemia (starting Hgb 8.8)
8. PVD
9. Hx of temporal cerebral art. aneurysm s/p clip
10. Hx of L retinal artery occlusion
11. HTN
12. HLD
13. Acute postop pulmonary insufficiency
14. Acute postop hypovolemia with subsequent hypervolemia
15. Acute postop hyponatremia
16. Acute post-op paroxysmal atrial fibrillation
HPI: 79 y/o female with severe , HTN, HLD, CAD, Hx of temporal cerebral art. aneurysm s/p clip, Hx of L retinal artery occlusion was electively admitted 04/11/25 for AVR/CABG
Hospital course: Patient underwent a tissue aortic valve replacement (#21 Inspiris Resilia), CABG x 3 (SALVATORE to LAD, GSV to OM2, GSV to RPDA), and exclusion of left atrial appendage (35mm AtriClip) by Dr. Prosper Barrett. Patient required 3 PRBC on
pump as starting hemoglobin was 8.8. Patient returned to CVICU on Levophed, Precedex, and insulin. Patient was extubated at 1800 on the day of surgery. Patient required 1 L of Lactated Ringer's with 250 cc of 5% albumin overnight for hypovolemia.
On postoperative day #1, [place] catheter was discontinued. Patient complained of nausea and Reglan and Compazine given with relief. Abdominal flatplate was negative. Patient developed DEENA on postoperative day #2 with creatinine climbing to 2.
Nephrology was consulted and agreed with current treatment for likely cardio-renal source DEENA. Renal ultrasound was within normal limits. Chest tubes and arterial line were discontinued. On postoperative day #3, patient was transfused for
hemoglobin of 7.5 and then received Lasix. Patient developed brief new onset atrial fibrillation which converted to sinus rhythm with amiodarone bolus and increase of Toprol to 50 mg daily. Physical/Occupational Therapy were consulted and deemed
patient appropriate for discharge to home. Creatinine trended down with additional diuresis and was 1.4 on day of discharge. As needed hydrochlorothiazide will be resumed on discharge. Hemoglobin improved to 9.5 on day of discharge. Patient
discharged on amiodarone 200 mg daily due to A-fib episode and lisinopril resumed at 5 mg daily dose. Patient will have follow-up BMP in 1 week. Of note patient has absorbable Vicryl mattress suture in bilateral groin incisions. Visiting nurse may
remove the sutures if they do not absorb within 2 weeks.
Home medication changes:
Lisinopril 20mg reduced to 5mg daily
New meds as listed below
Discharge Plan
-
Patient Disposition: Home (Routine Discharge)
Discharge Diagnosis/Procedures: AVR, CABG x 3, left atrial appendage clip
Condition: Good
Diet: Low Cholesterol and Low Sodium
Activity: No strenuous activity
Driving Restrictions: Not until seen by your Dr
Bathing Restrictions: OK to Shower
Blood Work: BMP in 1 week
Other Services: Cardiac Rehab
Wound Care: Right lower leg & groin sutures are absorbable--if they do not fall out within 2 weeks, OK for visiting nurse to remove at 2 week jake (on or around 04/25/25)
Specialty Instructions: Weigh Daily- Call MD for wt gain/loss 3 lbs overnight/5 lbs in 1 week
Referrals:
CT Transitional Care Nurse [Outside] - in one to two days
(
The Cardiothoracic Transitional Care Nurse will call you to set up a visit in 1-2 days.)
[facility]. Cardiac Rehab [Outside] - 05/23/25 1:00 pm
(Cardiac Rehab Orientation appointment is on May 23 at 1pm.
The Cardiac Rehab gym is located on the first floor of the [facility].)
Joel Jennings MD, Resident [Family Provider] -
Manisha Nazario CRNP [Specified Professional Personl] - 05/29/25 8:40 am
Prosper Barrett MD [Active] - 05/15/25 1:30 pm
Prescriptions:
New
clopidogrel 75 mg Tablet
75 mg PO DAILY Qty: 30 1RF
amiodarone 200 mg tablet
200 mg PO DAILY Qty: 30 1RF
acetaminophen 325 mg Tablet
650 mg PO Q4HPRN PRN (Reason: mild pain,headache,temp >101F ) Qty: 0 0RF
lisinopril 5 mg Tablet
5 mg PO DAILY Qty: 30 1RF
pantoprazole 40 mg Tablet,Delayed Release (Dr/Ec)
40 mg PO DAILY Qty: 30 1RF
gabapentin 100 mg Capsule
100 mg PO TID Qty: 30 0RF
oxycodone 5 mg Tablet
2.5 mg PO Q4HPRN PRN (Reason: severe pain) Qty: 10 0RF
Continued
hydrochlorothiazide 12.5 mg Tablet
12.5 mg PO DAILYPRN PRN (Reason: swelling)
atorvastatin 40 mg tablet
40 mg PO Q48H
aspirin 81 mg tablet,chewable
81 mg PO DAILY
metoprolol succinate 50 mg Tablet Extended Release 24 Hr
50 mg PO DAILY Qty: 0 0RF
Discontinued
lisinopril 20 mg Tablet
20 mg PO DAILY
Discharge Orders:
Discharge Patient (As Directed); Ordered 04/16/25
Ordered By: Jenn Barber
Care Plan Goals
Care Plan Goals:
Problem: Readiness for enhanced knowledge related to diagnosis and treatment plan
Goal: Understand your diagnosis and treatment plan needs, including medications if applicable.
Instructions: Know your diagnosis, underlying causes and treatment plan options, including medications if applicable. Consult with your health care team to learn about your diagnosis and treatment plan, including medications if applicable.
Discharge Date and Time
Print Language: YAKUT
[2025-04-16 10:23] VITALS: BP 133/64
[2025-04-16 10:29] VITALS: BP 132/55; PULSE 73
[2025-04-16] MEDS: ZESTRIL 5 MG PO (10:55)
--- NOTE | 2025-04-16 11:43 | W.PN.NEPH.PH ---
Today's Communication / Plan
-
ok for d/c, cont lasix per primary
BMP with in week with PCP
Assessment/Plan
-
IMP:
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
Severe aortic stenosis
B/L ELAINE (50-69%)
DEENA with CKD 3-baseline cr 1.1-1.4
non gap met acidosis
Acute blood loss Anemia
Thrombocytopenia
Acute postop hypovolemia with subsequent hypervolemia
Acute suspected pericarditis
PVD
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
hx of L retinal artery occlusion
HTN
HLD
Plan:
A/w elective CABG and AVR on 04/11
DEENA -suspect hemodynamic related specially hypotension post op
cr better at 1.2 baseline, non oliguric
baseline UA was bland,
renal US non acute however right small kidney-need f/u out pt
mild hypoantremia-cont lasix and FR
Bp stable
h/h better
lasix per primary
avoid nephrotoxins , cont to hold ACEI, HCTZ
d/w pt and daughter
ok for d/c
-
-
Date of Service: April 16, 2025
CC / HPI / ROS
-
Chief Complaint:
DEENA
History of Present Illness:
cr slightly better at 1.2
UOP non oliguric
BP better
hb better at 9.5 post prbc , plt 141-better
wt is down
Review of Systems:
no cp or sob at rest
Labs
-
Labs:
WBC 7.8 10^3/uL (4.8-10.8) 04/16/25 04:58
RBC 3.24 10^6/uL (4.20-5.40) L 04/16/25 04:58
Hgb 9.5 g/dL (12.0-16.0) L 04/16/25 04:58
Hct 27.7 % (37.0-47.0) L 04/16/25 04:58
Plt Count 141 10^3/uL (130-400) D 04/16/25 04:58
Sodium 132 mmol/L (135-145) L 04/16/25 04:58
Potassium 4.2 mmol/L (3.5-5.1) 04/16/25 04:58
Chloride 99 mmol/L (98-107) 04/16/25 04:58
Carbon Dioxide 30 mmol/L (22-30) 04/16/25 04:58
BUN 47 mg/dl (7-17) H 04/16/25 04:58
Creatinine 1.4 mg/dL (0.6-1.0) H 04/16/25 04:58
eGFR 38.03 04/16/25 04:58
Glucose 102 mg/dl (70-99) H 04/16/25 04:58
Calcium 8.8 mg/dl (8.4-10.2) 04/16/25 04:58
Albumin 4.2 g/dl (3.5-5.0) 03/29/25 08:36
Physical Exam
-
Vital Signs:
Vital Signs
Temp Pulse Resp BP Pulse Ox
97.8 F 75 20 133/57 97
04/16/25 08:00 04/16/25 09:00 04/16/25 08:00 04/16/25 04:47 04/16/25 08:00
Cardiovascular:: Regular rate and rhythm
Respiratory:: Bilateral: CTA (decreased)
Lung Excursion:: Normal
Abdomen:: Nontender and Soft
Extremity Edema:: +2: Bilateral:
Flores Catheter: No
[2025-04-16 12:43] VITALS: BP 101/56
== END 2025-04-16 14:00 | disposition home or self-care (01) | DRG 219 ==
LOC: CVICU 05:14
PROVIDERS: Anesthesiology; Nurse Practitioner; Physician Assistant Medical; ADMITTING PHYSICIAN Thoracic Surgery (Cardiothoracic Vascular Surgery); CONSULT PHYSICIAN Internal Medicine; FAMILY PHYSICIAN Student in an Organized Health Care Education/Training Program
PROC: 5A1221Z Performance of Cardiac Output, Continuous (ICD-10-PCS; 2025-04-11)
PROC: 021109W Bypass Coronary Artery, Two Arteries from Aorta with Autologous Venous Tissue, Open Approach (ICD-10-PCS; 2025-04-11)
PROC: 06BP4ZZ Excision of Right Saphenous Vein, Percutaneous Endoscopic Approach (ICD-10-PCS; 2025-04-11)
PROC: 02RF08Z Replacement of Aortic Valve with Zooplastic Tissue, Open Approach (ICD-10-PCS; 2025-04-11)
PROC: 02100ZC Bypass Coronary Artery, One Artery from Thoracic Artery, Open Approach (ICD-10-PCS; 2025-04-11)
PROC: B24BZZ4 Ultrasonography of Heart with Aorta, Transesophageal (ICD-10-PCS; 2025-04-11)
PROC: 30233N1 Transfusion of Nonautologous Red Blood Cells into Peripheral Vein, Percutaneous Approach (ICD-10-PCS; 2025-04-11)
PROC: 02L70CK Occlusion of Left Atrial Appendage with Extraluminal Device, Open Approach (ICD-10-PCS; 2025-04-11)
DX: I35.2 Nonrheumatic aortic (valve) stenosis with insufficiency (principal); J95.1 Acute pulmonary insufficiency following thoracic surgery; D62 Acute posthemorrhagic anemia; N17.9 Acute kidney failure, unspecified; E87.20 Acidosis, unspecified; E87.1 Hypo-osmolality and hyponatremia; J98.11 Atelectasis; I30.8 Other forms of acute pericarditis; I34.0 Nonrheumatic mitral (valve) insufficiency; I36.1 Nonrheumatic tricuspid (valve) insufficiency; I25.10 Atherosclerotic heart disease of native coronary artery without angina pectoris; M19.90 Unspecified osteoarthritis, unspecified site; E78.00 Pure hypercholesterolemia, unspecified; N18.32 Chronic kidney disease, stage 3b; I27.22 Pulmonary hypertension due to left heart disease; J30.9 Allergic rhinitis, unspecified; D69.6 Thrombocytopenia, unspecified; E86.1 Hypovolemia; E87.70 Fluid overload, unspecified; I95.81 Postprocedural hypotension; Y83.2 Surgical operation with anastomosis, bypass or graft as the cause of abnormal reaction of the patient, or of later complication, without mention of misadventure at the time of the procedure; I48.0 Paroxysmal atrial fibrillation; I12.9 Hypertensive chronic kidney disease with stage 1 through stage 4 chronic kidney disease, or unspecified chronic kidney disease; I73.9 Peripheral vascular disease, unspecified; I65.23 Occlusion and stenosis of bilateral carotid arteries; K76.0 Fatty (change of) liver, not elsewhere classified; H26.9 Unspecified cataract; M81.0 Age-related osteoporosis without current pathological fracture; D63.1 Anemia in chronic kidney disease; Z79.02 Long term (current) use of antithrombotics/antiplatelets; Z79.82 Long term (current) use of aspirin; Z79.899 Other long term (current) drug therapy; Z86.79 Personal history of other diseases of the circulatory system; Z87.891 Personal history of nicotine dependence; Z86.73 Personal history of transient ischemic attack (TIA), and cerebral infarction without residual deficits
CPT/HCPCS: 88305; 88311; 36415; 71045; 71046; 74018; 76775; 80048; 80053; 81003; 81015; 82248; 82330; 82565; 82570; 82805; 82947; 82962; 83036; 83735; 84132; 84300; 84302; 84520; 85014; 85018; 85025; 85027; 85049; 85610; 85730; 86850; 86900; 86901; 86920; 87070; 93005; 93312; 93320; 93325; 93970; 94002; 94010; 97163; 97167; 97530; 97535; P9016; P9045; P9047

== ENCOUNTER → 2025-04-19 11:32 | Outpatient (REF) | payer MEDICARE, SELFPAY ==
[2025-04-19 13:21] LABS: Blood Urea Nitrogen 25 mg/dl (7-17); Calcium 8.9 mg/dl (8.4-10.2); Carbon Dioxide 26 mmol/L (22-30); Chloride 102 mmol/L (98-107); Glucose 114 mg/dl (70-99); Potassium 4.8 mmol/L (3.5-5.1); Sodium 135 mmol/L (135-145); eGFR 41.57
== END ==
LOC: REG 11:32
PROVIDERS: ATTENDING PHYSICIAN Nurse Practitioner Acute Care; FAMILY PHYSICIAN Student in an Organized Health Care Education/Training Program
DX: Z95.2 Presence of prosthetic heart valve (principal)
CPT/HCPCS: 36415; 80048

== ENCOUNTER 2025-06-20 11:06 | Outpatient (RCR) | payer MEDICARE, SELFPAY | END 2025-06-20 23:59 | disposition home or self-care (01) | LOC: CRHB 11:06 | PROVIDERS: ATTENDING PHYSICIAN Internal Medicine Cardiovascular Disease | DX: Z95.1 Presence of aortocoronary bypass graft (principal); Z95.4 Presence of other heart-valve replacement | CPT/HCPCS: G0422; G0423 ==

== ENCOUNTER → 2025-07-05 09:55 | Outpatient (REF) | payer MEDICARE, SELFPAY ==
[2025-07-05 12:09] LABS: Albumin 4.6 g/dl (3.5-5.0); Blood Urea Nitrogen 24 mg/dl (7-17); Calcium 9.4 mg/dl (8.4-10.2); Carbon Dioxide 24 mmol/L (22-30); Chloride 96 mmol/L (98-107); Glucose 99 mg/dl (70-99); Potassium 4.9 mmol/L (3.5-5.1); Sodium 128 mmol/L (135-145); eGFR 32.20
== END ==
LOC: RAD 09:55
PROVIDERS: ATTENDING PHYSICIAN Internal Medicine Cardiovascular Disease
DX: M79.661 Pain in right lower leg (principal); M79.662 Pain in left lower leg; I10 Essential (primary) hypertension
CPT/HCPCS: 36415; 80069; 93922

== ENCOUNTER → 2025-07-17 09:22 | Outpatient (REF) | payer MEDICARE, SELFPAY | LOC: HWRCS 09:22 | PROVIDERS: ATTENDING PHYSICIAN Nurse Practitioner; FAMILY PHYSICIAN Student in an Organized Health Care Education/Training Program | DX: I35.0 Nonrheumatic aortic (valve) stenosis (principal) | CPT/HCPCS: 93306 ==

== ENCOUNTER 2025-07-20 13:56 | Outpatient (RCR) | payer MEDICARE, SELFPAY | END 2025-07-20 23:59 | disposition home or self-care (01) | LOC: CRHB 13:56 | PROVIDERS: ATTENDING PHYSICIAN Internal Medicine Cardiovascular Disease | DX: Z95.1 Presence of aortocoronary bypass graft (principal); I25.10 Atherosclerotic heart disease of native coronary artery without angina pectoris (principal); Z95.4 Presence of other heart-valve replacement | CPT/HCPCS: G0422; G0423 ==

== ENCOUNTER → 2025-08-09 08:26 | Outpatient (REF) | payer MEDICARE, SELFPAY | LOC: CLAB 08:26 | DX: R39.9 Unspecified symptoms and signs involving the genitourinary system (principal) | CPT/HCPCS: 87077; 87086; 87186 ==

== ENCOUNTER 2025-08-20 11:59 | Outpatient (RCR) | payer MEDICARE, SELFPAY | END 2025-08-20 23:59 | disposition home or self-care (01) | LOC: CRHB 11:59 | PROVIDERS: ATTENDING PHYSICIAN Internal Medicine Cardiovascular Disease | DX: I25.10 Atherosclerotic heart disease of native coronary artery without angina pectoris (principal); Z95.1 Presence of aortocoronary bypass graft; Z95.4 Presence of other heart-valve replacement | CPT/HCPCS: G0422; G0423 ==

== ENCOUNTER 2025-09-05 11:27 | Outpatient (RCR) | payer MEDICARE, SELFPAY | END 2025-09-12 17:53 | disposition home or self-care (01) | LOC: CRHB 11:27 | PROVIDERS: ATTENDING PHYSICIAN Internal Medicine Cardiovascular Disease | DX: I25.10 Atherosclerotic heart disease of native coronary artery without angina pectoris (principal); Z95.1 Presence of aortocoronary bypass graft; Z95.4 Presence of other heart-valve replacement | CPT/HCPCS: G0422; G0423 ==